=== PATIENT | male | born 1930 | race Hispanic/Latino ===

== ENCOUNTER 2018-08-11 16:38 | Inpatient (IN) | payer MEDICARE, BC ==
[2018-08-11 16:58] VITALS: BMI 20.8
[2018-08-11] MEDS ORDERED: Sodium Chloride 0.9% 1,000 ML IV SCH (17:30)
[2018-08-11 18:03] LABS: BASO # 0.01 K/mm3 (0.0-2.0); BASO % 0.1 % (0.0-3.0); GRAN # 8.68 (1.4-6.5); GRAN % 86.3 % (50.0-68.0); HEMOGLOBIN 11.2 g/dL (14.0-18.0); LYMPH # 0.6 (1.2-3.4); LYMPH % 6.2 % (22.0-35.0); MEAN CELL VOLUME 80.6 fl (80.0-105.0); MEAN CORPUSCULAR HEMOGLOBIN 26.8 pg (25.0-35.0); MEAN CORPUSCULAR HGB CONC 33.2 g/dl (31.0-37.0); MEAN PLATELET VOLUME 8.9 fl (7.0-11.0); MONO # 0.7 (0.1-0.6); MONO % 7.4 % (1.0-6.0); RBC 4.18 10^6/uL (3.5-6.1); RED CELL DISTRIBUTION WIDTH 14.9 % (11.5-14.5); WHITE BLOOD COUNT 10.1 10^3/uL (4.5-11.0)
[2018-08-11 18:08] LABS: ALB/GLOB RATIO 1.1 (1.1-1.8); ALBUMIN 4.1 g/dL (3.0-4.8); ALT/SGPT 27 U/L (7-56); AST/SGOT 40 U/L (17-59); BLOOD UREA NITROGEN 22 mg/dL (7-21); CALCIUM 9.4 mg/dL (8.4-10.5); GFR NON-AFRICAN AMERICAN 52
[2018-08-11 18:19] LABS: TROPONIN I 0.03 ng/mL
[2018-08-11] MEDS ORDERED: Azithromycin 500MG/NS 250ml 500 MG/250 ML BAG IVPB STA (18:39)
[2018-08-11] MEDS ORDERED: cefTRIAXone 1 gm 1 GM/100 ML BAG IVPB STA (18:41)
--- NOTE | 2018-08-11 19:01 | ED PDOC ---
Arrival/HPI - General Chief Complaint: Weakness/Neurological Deficit Historian: Patient - History of Present Illness Narrative History of Present Illness (Text): 08/11/18 17:14 87 year old male, whose past medical history includes pneumonia, diabetes, who presents to the emergency department complaining of generalized weakness for 1 day. Patient states he was sitting in his chair, not able to stand up. He also reports associated non productive cough for more than a week, cannot bring up phlegm, and decreased appetite. Patient denies fevers, chills, headache, dizziness, chest pain, shortness of breath, dyspnea on exertion, abdominal pain, nausea, vomiting, diarrhea, back pain, neck pain, or any other complaint. Time/Duration: 24 hours Symptom Course: Unchanged Activities at Onset: Light Context: Home Past Medical History - Provider Review Nursing Documentation Reviewed: Yes - Travel History Have you recently traveled outside [place] w/in the past 3 mons?: No - Infectious Disease Hx of Infectious Diseases: None - Tetanus Immunization Tetanus Immunization: Unknown - Cardiac Hx Pacemaker: No - Pulmonary Hx Respiratory Disorders: Yes Hx Pneumonia: Yes - Neurological Hx Paralysis: No - HEENT Hx HEENT Disorder: No - Renal Hx Kidney Stones: Yes - Endocrine/Metabolic Hx Diabetes Mellitus Type 2: Yes - Hematological/Oncological Hx Blood Transfusions: No - Integumentary Hx Dermatological Disorder: No - Musculoskeletal/Rheumatological Hx Musculoskeletal Disorders: Yes - Gastrointestinal Hx Diarrhea: Yes (x1 week, pt just finished abx for uri) Hx Gastrointestinal Ulcer: Yes - Genitourinary/Gynecological Hx Genitourinary Disorders: No - Psychiatric Hx Emotional Abuse: No Hx Physical Abuse: No Hx Substance Use: No - Past Surgical History Past Surgical History: Non-Contributing - Surgical History Other/Comment: Something to do with his throat. Pt doesn't know exactly what the problem was. - Anesthesia Hx Anesthesia Reactions: No Hx Malignant Hyperthermia: No - Suicidal Assessment Feels Threatened In Home Enviroment: No Family/Social History - Physician Review Nursing Documentation Reviewed: Yes Family/Social History: No Known Family HX Smoking Status: Current Some Days Smoker Hx Alcohol Use: No Hx Substance Use: No Hx Substance Use Treatment: No Allergies/Home Meds Allergies/Adverse Reactions: Allergies No Known Allergies Allergy (Verified 08/11/18 16:57) Home Medications: Home Meds Medication Instructions Recorded Confirmed RX: Cilostazol 100 mg PO BID 11/01/12 08/13/16 RX: Diltiazem HCl [Diltiazem 24Hr 420 mg PO DAILY 08/13/16 08/13/16 ER] RX: Losartan Potassium [Cozaar] 100 mg PO DAILY 08/13/16 08/13/16 RX: Metformin HCl [Glucophage] 1,000 mg PO BID 08/13/16 08/13/16 RX: Multivitamin [Men's 1 tab PO DAILY 08/13/16 08/13/16 Multi-Vitamin] RX: Omeprazole 20 mg PO BID 08/13/16 08/13/16 RX: Simvastatin 20 mg PO DAILY 08/13/16 08/13/16 Review of Systems - Physician Review All systems were reviewed & negative as marked: Yes - Review of Systems Constitutional: Other (generalized weakness ). absent: Fevers Eyes: absent: Vision Changes Respiratory: Cough (nonproductive cough for >week). absent: Sputum Cardiovascular: absent: Chest Pain Gastrointestinal: Appetite Changes (decreased appetite). absent: Abdominal Pain, Diarrhea, Nausea, Vomiting Musculoskeletal: absent: Back Pain, Neck Pain Neurological: absent: Headache, Dizziness Physical Exam Vital Signs Reviewed: Yes Vital Signs Temp Pulse Resp BP Pulse Ox 08/11/18 16:57 98.1 F 103 H 20 145/67 90 L Temperature: Afebrile Blood Pressure: Normal Pulse: Tachycardic Respiratory Rate: Normal Appearance: Positive for: Well-Appearing, Non-Toxic, Other (Thin) Pain Distress: None Mental Status: Positive for: Alert and Oriented X 3 Finger Stick Blood Glucose: 282 - Systems Exam Head: Present: Atraumatic, Normocephalic Pupils: Present: PERRL Extroacular Muscles: Present: EOMI Conjunctiva: Present: Normal Mouth: Present: Moist Mucous Membranes Neck: Present: Normal Range of Motion Respiratory/Chest: Present: Respiratory Distress, Other (poor respiratory effort by patient). No: Accessory Muscle Use Cardiovascular: Present: Regular Rate and Rhythm, Normal S1, S2. No: Murmurs Abdomen: No: Tenderness, Distention, Peritoneal Signs Back: Present: Normal Inspection Upper Extremity: Present: Normal Inspection. No: Cyanosis, Edema Lower Extremity: Present: Normal Inspection. No: Edema Neurological: Present: GCS=15, CN II-XII Intact, Speech Normal Skin: Present: Warm, Dry, Normal Color. No: Rashes Psychiatric: Present: Alert, Oriented x 3, Normal Insight, Normal Concentration Medical Decision Making ED Course and Treatment: 08/11/18 17:14 Impression: 87 year old male who presents to the emergency department with generalized weakness, and nonproductive cough. Plan: -- EKG -- Labs -- Cardiac Enzymes -- Chest X-ray -- Aspirin -- IV Fluids -- Rocephin -- Zithromax -- Blood Culture -- Urine Culture -- Urinalysis -- Reassess and disposition Prior Visits: Notes and results from previous visits were reviewed. Progress Notes: 08/11/18 17:30 EKG Reviewed, shows: Sinus tachycardic at 107 bpm with normal access, RBBB, ST elevation lead III. 08/11/18 17:[address] Baca he reviewed pt's EKG, states this is an isolated ST elevation, will follow pt on the floor. 08/11/18 17:[address] Sharpe, will admission to telemtry for pneumonia, weakness, near syncope. - Lab Interpretations Lab Results: 08/11/18 17:40 08/11/18 17:40 Lab Results 08/11/18 17:40: Sodium 136, Potassium 4.6, Chloride 102, Carbon Dioxide 23, Anion Gap 17, BUN 22 H, Creatinine 1.3, Est GFR ( Amer) > 60, Est GFR (Non-Af Amer) 52, Random Glucose 304 H* D, Calcium 9.4, Magnesium 1.9, Total Bilirubin 0.6, AST 40, ALT 27, Alkaline Phosphatase 114, Lactate Dehydrogenase 639, Total Creatine Kinase 179, Troponin I 0.03, Total Protein 8.0, Albumin 4.1, Globulin 3.9, Albumin/Globulin Ratio 1.1 08/11/18 17:40: WBC 10.1, RBC 4.18, Hgb 11.2 L, Hct 33.7 L, MCV 80.6, MCH 26.8, MCHC 33.2, RDW 14.9 H, Plt Count 266, MPV 8.9, Gran % 86.3 H, Lymph % (Auto) 6.2 L, [place] % (Auto) 7.4 H, Eos % (Auto) 0.0 L, Baso % (Auto) 0.1, Gran # 8.68 H, Lymph # (Auto) 0.6 L, [place] # (Auto) 0.7 H, Eos # (Auto) 0.0, Baso # (Auto) 0.01 I have reviewed the lab results: Yes - RAD Interpretation Radiology Orders: 08/11/18 17:15 CHEST PORTABLE [RAD] Stat - Medication Orders Current Medication Orders: Sodium Chloride (Sodium Chloride 0.9%) 1,000 mls @ 100 mls/hr IV .Q10H DENISHA Last Admin: 08/11/18 18:16 Dose: 100 mls/hr eMAR Start Stop Document 08/11/18 18:16 LEAD GENERATION REPRESENTATIVE (Rec: 08/11/18 18:18 [facility] [id number]) Intravenous Solution Start Date 08/11/18 Start Time 18:18 Ceftriaxone Sodium (Rocephin 1 Gram Ivpb) 1 gm in 100 mls @ 100 mls/hr IVPB STAT STA; Protocol Stop: 08/11/18 19:40 Azithromycin (Zithromax 500mg In Ns) 500 mg in 250 mls @ 167 mls/hr IVPB STAT STA; Protocol Stop: 08/11/18 20:08 Discontinued Medications Aspirin (Aspirin) 325 mg PO STAT STA Stop: 08/11/18 18:40 - Scribe Statement The provider has reviewed the documentation as recorded by the Casey Hylton Provider Scribe Attestation: All medical record entries made by the Scribe were at my direction and personally dictated by me. I have reviewed the chart and agree that the record accurately reflects my personal performance of the history, physical exam, medical decision making, and the department course for this patient. I have also personally directed, reviewed, and agree with the discharge instructions and disposition. Disposition/Present on Arrival - Present on Arrival Any Indicators Present on Arrival: No History of DVT/PE: No History of Uncontrolled Diabetes: No Urinary Catheter: No History of Decub. Ulcer: No History Surgical Site Infection Following: None - Disposition Have Diagnosis and Disposition been Completed?: Yes Diagnosis: Weakness, Community acquired pneumonia Disposition: HOSPITALIZED Disposition Time: 18:15 Condition: STABLE
--- NOTE | 2018-08-11 20:08 | CP.PCM.PN ---
Subjective - Date & Time of Evaluation Date of Evaluation: 08/11/18 Time of Evaluation: 20:08 Objective - Vital Signs/Intake and Output Vital Signs (last 24 hours): Temp Pulse Resp BP Pulse Ox 98.1 F 108 H 18 144/81 95 08/11/18 16:57 08/11/18 19:45 08/11/18 19:45 08/11/18 19:45 08/11/18 19:45 - Medications Medications: Current Medications Aspirin (Ecotrin) 81 mg PO DAILY DENISHA Benzonatate (Tessalon Perles) 100 mg PO TID PRN PRN Reason: Cough Heparin Sodium (Porcine) (Heparin) 5,000 units SC Q8 DENISHA; Protocol Azithromycin (Zithromax 500mg In Ns) 500 mg in 250 mls @ 167 mls/hr IVPB STAT STA; Protocol Stop: 08/11/18 20:08 Dextrose (Dextrose 5% In Water 1000 Ml) 1,000 mls @ 0 mls/hr IV .Q0M PRN; Protocol PRN Reason: Hypoglycemia Protocol Ceftriaxone Sodium (Rocephin 1 Gram Ivpb) 1 gm in 100 mls @ 100 mls/hr IVPB DAILY DENISHA; Protocol Sodium Chloride (Sodium Chloride 0.9%) 1,000 mls @ 100 mls/hr IV .Q10H DENISHA Insulin Human Regular (Humulin R Med) 0 units SC ACHS DENISHA; Protocol - Labs Labs: 08/11/18 17:40 08/11/18 17:40
[2018-08-11] MEDS: Sodium Chloride 0.9% 1,000 ML IV SCH (20:15)
--- NOTE | 2018-08-11 20:26 | CP.PCM.HP ---
<KylerGuy - Last Filed: 08/12/18 06:18> History of Present Illness - History of Present Illness History of Present Illness: Resident Guy Chávez DO PGY-1 H&P Note for Hospitalist: Dr. Alvarado Pt is a 87 yo M with pmhx DM, HTN, HLD who presents for 2 week history of cough and 3 day hx of weakness. He states that his cough has been present for about 3 weeks and is non-productive. He denies any recent travel or sick contacts. He states that he has taken robutussin and mucinex which has not helped him bring up phlegm or help alleviate the cough. He states that he is not having any chest pain, SOB, fevers, chills, body aches, runny nose, congestion, nausea, vomiting, abdominal pain, dysuria, hematuria. He denies the cough being worse at night or any other factors that exacerbate the cough. For the weakness the pt states that he has not had an appetite for the past 3 days, and is feeling weak and as if he is unable to support his own weight. He denies having any falls and is able to ambulate at home without issue, but it has been more tiring for him to walk lately. He states that he is not having any nausea, vomiting after meals but he simply feels weak after the coughing. He denies any difficulty in swallowing, pain with swallowing or feeling as if food is getting stuck in his throat. Pmhx: DM, HTN, HLD Pshx: Skin cancer excision from legs x3 - benign All: NKDA Social: Occasional smoker, 1 cigar/month, No etoh or illicit drug use Fam: Non-contributory PMD: [place] Present on Admission - Present on Admission Any Indicators Present on Admission: No Review of Systems - Review of Systems All systems: reviewed and no additional remarkable complaints except Review of Systems: 12 point ROS is negative except for noted in HPI. Past Patient History - Infectious Disease Hx of Infectious Diseases: None - Tetanus Immunizations Tetanus Immunization: Unknown - Past Social History Smoking Status: Current Some Days Smoker - CARDIAC Hx Pacemaker: No - PULMONARY Hx Respiratory Disorders: Yes Hx Pneumonia: Yes - NEUROLOGICAL Hx Paralysis: No - HEENT Hx HEENT Problems: No - RENAL Hx Kidney Stones: Yes - ENDOCRINE/METABOLIC Hx Diabetes Mellitus Type 2: Yes - HEMATOLOGICAL/ONCOLOGICAL Hx Blood Transfusions: No - INTEGUMENTARY Hx Dermatological Problems: No - MUSCULOSKELETAL/RHEUMATOLOGICAL Hx Musculoskeletal Disorders: Yes - GASTROINTESTINAL Hx Diarrhea: Yes (x1 week, pt just finished abx for uri) - GENITOURINARY/GYNECOLOGICAL Hx Genitourinary Disorders: No - PSYCHIATRIC Hx Emotional Abuse: No Hx Physical Abuse: No Hx Substance Use: No - SURGICAL HISTORY Other/Comment: Something to do with his throat. Pt doesn't know exactly what the problem was. - ANESTHESIA Hx Anesthesia Reactions: No Hx Malignant Hyperthermia: No Meds Allergies/Adverse Reactions: Allergies Allergy/AdvReac Type Severity Reaction Status Date / Time No Known Allergies Allergy Verified 08/11/18 16:57 Physical Exam - Constitutional Appears: Well, Non-toxic, No Acute Distress - Head Exam Head Exam: ATRAUMATIC, NORMAL INSPECTION, NORMOCEPHALIC - Eye Exam Eye Exam: EOMI, Normal appearance Pupil Exam: NORMAL ACCOMODATION - Respiratory Exam Respiratory Exam: Wheezes (present diffusely b/l), NORMAL BREATHING PATTERN. absent: Accessory Muscle Use, Chest Wall Tenderness, Decreased Breath Sounds, Respiratory Distress, Stridor - Cardiovascular Exam Cardiovascular Exam: RRR, +S1, +S2 - GI/Abdominal Exam GI & Abdominal Exam: Normal Bowel Sounds, Soft. absent: Firm, Tenderness - Extremities Exam Extremities exam: Positive for: normal inspection, pedal pulses present. Negative for: calf tenderness, joint swelling, pedal edema - Back Exam Back exam: NORMAL INSPECTION. absent: CVA tenderness (L), CVA tenderness (R) - Neurological Exam Neurological exam: Alert, Oriented x3 - Psychiatric Exam Psychiatric exam: Normal Affect, Normal Mood - Skin Skin Exam: Dry, Intact, Normal Color, Warm Results - Vital Signs Recent Vital Signs: Last Vital Signs Temp 98.1 F 08/11/18 16:57 Pulse 108 H 08/11/18 19:45 Resp 18 08/11/18 19:45 BP 144/81 08/11/18 19:45 Pulse Ox 95 08/11/18 19:45 - Labs Result Diagrams: 08/11/18 17:40 08/11/18 17:40 Labs: Laboratory Results - last 24 hr 08/11/18 08/11/18 17:40 17:40 WBC 10.1 RBC 4.18 Hgb 11.2 L Hct 33.7 L MCV 80.6 MCH 26.8 MCHC 33.2 RDW 14.9 H Plt Count 266 MPV 8.9 Gran % 86.3 H Lymph % (Auto) 6.2 L [place] % (Auto) 7.4 H Eos % (Auto) 0.0 L Baso % (Auto) 0.1 Gran # 8.68 H Lymph # (Auto) 0.6 L [place] # (Auto) 0.7 H Eos # (Auto) 0.0 Baso # (Auto) 0.01 Sodium 136 Potassium 4.6 Chloride 102 Carbon Dioxide 23 Anion Gap 17 BUN 22 H Creatinine 1.3 Est GFR ( Amer) > 60 Est GFR (Non-Af Amer) 52 Random Glucose 304 H* D Calcium 9.4 Magnesium 1.9 Total Bilirubin 0.6 AST 40 ALT 27 Alkaline Phosphatase 114 Lactate Dehydrogenase 639 Total Creatine Kinase 179 Troponin I 0.03 Total Protein 8.0 Albumin 4.1 Globulin 3.9 Albumin/Globulin Ratio 1.1 Assessment & Plan - Assessment and Plan (Free Text) Assessment: Pt is a 87 yo M with pmhx DM, HTN, HLD who presents for 2 week history of cough and 3 day hx of weakness. CXR shows questionable consolidation in the LLL overlying cardiac silhouette. Pt is afebrile and has no elevation in WBC. EKG also showed questionable old inferior wall infarct. Plan: 1. PNA vs Bronchitis - CXR shows possible consildation overlying cardiac silhouette, read by me, f/u official read - No elevation in WBC or temp - f/u blood, urine and sputum cultures - f/u MRSA screen - f/u Legionella urine - Procal ordered - f/u M pneumo - f/u flu A&B test - Zithromax 500 IV QD - Rocephin 1g IV QD - Tessalon pearls 2. Abnormal EKG - Pt is having no active chest pain, and is non diaphoretic - Trend trops, inital trop = .03 - ASA 81 QD, 325 already given in ED 3. Hx of DM - ISS - Lipid panel - Hgb A1c 4. Ppx: - DVT: Heparin - GI: Protonix Case seen and discussed with Dr. Jenny Chávez, DO Internal Medicine PGY-1 <Jos Alvarado - Last Filed: 08/12/18 06:46> Results - Vital Signs Recent Vital Signs: Last Vital Signs Temp 97.6 F 08/12/18 06:00 Pulse 125 H 08/12/18 06:00 Resp 20 08/12/18 06:00 BP 124/71 08/12/18 06:00 Pulse Ox 91 L 08/12/18 06:00 - Labs Result Diagrams: 08/11/18 17:40 08/11/18 17:40 Labs: Laboratory Results - last 24 hr 08/11/18 08/11/18 08/11/18 17:40 17:40 17:40 WBC 10.1 RBC 4.18 Hgb 11.2 L Hct 33.7 L MCV 80.6 MCH 26.8 MCHC 33.2 RDW 14.9 H Plt Count 266 MPV 8.9 Gran % 86.3 H Lymph % (Auto) 6.2 L [place] % (Auto) 7.4 H Eos % (Auto) 0.0 L Baso % (Auto) 0.1 Gran # 8.68 H Lymph # (Auto) 0.6 L [place] # (Auto) 0.7 H Eos # (Auto) 0.0 Baso # (Auto) 0.01 Sodium 136 Potassium 4.6 Chloride 102 Carbon Dioxide 23 Anion Gap 17 BUN 22 H Creatinine 1.3 Est GFR ( Amer) > 60 Est GFR (Non-Af Amer) 52 POC Glucose (mg/dL) Random Glucose 304 H* D Calcium 9.4 Magnesium 1.9 Total Bilirubin 0.6 AST 40 ALT 27 Alkaline Phosphatase 114 Lactate Dehydrogenase 639 Total Creatine Kinase 179 Troponin I 0.03 Total Protein 8.0 Albumin 4.1 Globulin 3.9 Albumin/Globulin Ratio 1.1 Triglycerides 192 H Cholesterol 156 LDL Cholesterol Direct 75 HDL Cholesterol 37 Urine Color Urine Appearance Urine pH Ur Specific [place] Urine Protein Urine Glucose (UA) Urine Ketones Urine Blood Urine Nitrate Urine Bilirubin Urine Urobilinogen Ur Leukocyte Esterase Urine RBC Urine WBC Ur Epithelial Cells Urine Bacteria 08/11/18 08/11/18 08/11/18 21:00 21:15 21:42 WBC RBC Hgb Hct MCV MCH MCHC RDW Plt Count MPV Gran % Lymph % (Auto) [place] % (Auto) Eos % (Auto) Baso % (Auto) Gran # Lymph # (Auto) [place] # (Auto) Eos # (Auto) Baso # (Auto) Sodium Potassium Chloride Carbon Dioxide Anion Gap BUN Creatinine Est GFR ( Amer) Est GFR (Non-Af Amer) POC Glucose (mg/dL) 244 H 233 H Random Glucose Calcium Magnesium Total Bilirubin AST ALT Alkaline Phosphatase Lactate Dehydrogenase Total Creatine Kinase Troponin I Total Protein Albumin Globulin Albumin/Globulin Ratio Triglycerides Cholesterol LDL Cholesterol Direct HDL Cholesterol Urine Color Yellow Urine Appearance Clear Urine pH 6.0 Ur Specific [place] 1.025 Urine Protein 100 H Urine Glucose (UA) >=1000 Urine Ketones Negative Urine Blood Large H Urine Nitrate Negative Urine Bilirubin Negative Urine Urobilinogen 0.2 Ur Leukocyte Esterase Negative Urine RBC 1 - 3 Urine WBC 0 - 2 Ur Epithelial Cells 0 - 2 Urine Bacteria Rare 08/12/18 03:45 WBC RBC Hgb Hct MCV MCH MCHC RDW Plt Count MPV Gran % Lymph % (Auto) [place] % (Auto) Eos % (Auto) Baso % (Auto) Gran # Lymph # (Auto) [place] # (Auto) Eos # (Auto) Baso # (Auto) Sodium Potassium Chloride Carbon Dioxide Anion Gap BUN Creatinine Est GFR ( Amer) Est GFR (Non-Af Amer) POC Glucose (mg/dL) Random Glucose Calcium Magnesium Total Bilirubin AST ALT Alkaline Phosphatase Lactate Dehydrogenase Total Creatine Kinase Troponin I 0.88 H* D Total Protein Albumin Globulin Albumin/Globulin Ratio Triglycerides Cholesterol LDL Cholesterol Direct HDL Cholesterol Urine Color Urine Appearance Urine pH Ur Specific [place] Urine Protein Urine Glucose (UA) Urine Ketones Urine Blood Urine Nitrate Urine Bilirubin Urine Urobilinogen Ur Leukocyte Esterase Urine RBC Urine WBC Ur Epithelial Cells Urine Bacteria Attending/Attestation - Attestation I have personally seen and examined this patient.: Yes I have fully participated in the care of the patient.: Yes I have reviewed all pertinent clinical information: Yes Notes (Text): Patient seen and examined with the residents, agree with above symptoms of nonproductive cough and generalized weakness CXR with left lower lung infiltrate - will start Abx for CAP with Azithromycin/Rocephin blood/sputum cx, atypical pneumonia workup, PCT no active chest pain but noted to have ST with non-specific EKG changes Troponin 0.03 --> 0.88. Start heparin gtt for NSTEMI protocol, Cardiology consultation continue with asa/statin/arb
[2018-08-11 21:07] LABS: HDL CHOLESTEROL 37 mg/dL (29-60)
[2018-08-11] MEDS: Insulin Reg-MEDIUM-Coverage SC SCH (21:17)
[2018-08-11 21:18] LABS: LDL CHOLESTEROL 75 mg/dL (0-129)
[2018-08-11 22:14] LABS: URINE BILIRUBIN NEGATIVE (NEGATIVE); URINE BLOOD LARGE (NEGATIVE); URINE GLUCOSE (UA) >=1000 mg/dL (NEGATIVE); URINE LEUKOCYTE ESTERASE NEGATIVE Leu/uL (NEGATIVE); URINE PROTEIN 100 mg/dL (<30 mg/dL); URINE UROBILINOGEN 0.2 E.U./dL (<1 E.U./dL)
[2018-08-11 22:16] LABS: URINE APPEARANCE CLEAR (CLEAR); URINE COLOR YELLOW (YELLOW)
[2018-08-11 23:24] LABS: URINE BACTERIA RARE (NEG); URINE EPITHELIAL CELLS 0 - 2 /hpf (0-5); URINE WBC 0 - 2 /hpf (0-6)
[2018-08-12] MEDS: Pantoprazole 40 mg EC Tab PO SCH (05:37)
[2018-08-12] MEDS: Heparin25000 units/250ml 1/2NS 25,000 UNITS/250 ML BAG IV SCH (05:38)
[2018-08-12] MEDS: Insulin Reg-MEDIUM-Coverage SC SCH ×4 (08:51→22:15)
[2018-08-12] MEDS: Cilostazol 100 mg Tab UD PO SCH ×2 (09:40→18:33)
[2018-08-12] MEDS: cefTRIAXone 1 gm 1 GM/100 ML BAG IVPB SCH (09:40)
[2018-08-12] MEDS: diltiaZEM 120 mg/24 Hours CD Cap PO SCH (09:42)
--- NOTE | 2018-08-12 09:46 | CARD ---
APPROVED REPORT Date of service: 08/12/2018 EKG Measurement Heart [id number] <Conclusion> Sinus tachycardia Indeterminate axis Right bundle branch block Inferior infarct, age Old? Abnormal ECG
[2018-08-12] MEDS ORDERED: diltiaZEM 300 mg/24 Hours CD Cap PO SCH (10:00)
--- NOTE | 2018-08-12 10:13 | CARD ---
APPROVED REPORT Date of service: 08/11/2018 EKG Measurement Heart [id number] <Conclusion> Sinus tachycardia Right bundle branch block Possible Inferior infarct, age Old. Abnormal ECG
--- NOTE | 2018-08-12 11:56 | RAD ---
Date of service: 08/11/2018 HISTORY: cough r/o infiltrate COMPARISON: 11/01/2012 FINDINGS: LUNGS: Lower lobe infiltrates bilaterally left greater than right. Findings not seen previously. PLEURA: No significant pleural effusion identified, no pneumothorax apparent. CARDIOVASCULAR: No atherosclerotic calcification present No radiographic findings to suggest acute or significant cardiovascular disease. OSSEOUS STRUCTURES: No significant abnormalities. VISUALIZED UPPER ABDOMEN: Normal. OTHER FINDINGS: None. IMPRESSION: Lower lobe infiltrates left greater than right. Likely atelectasis/pneumonia.
[2018-08-12] MEDS: Azithromycin 500MG/NS 250ml 500 MG/250 ML BAG IVPB SCH (12:21)
[2018-08-12] MEDS ORDERED: Iohexol 350 MG/100 ML VIAL ONE (14:20)
--- NOTE | 2018-08-12 16:46 | CP.PCM.PN ---
<Jovan Nevarez - Last Filed: 08/12/18 16:41> Subjective - Date & Time of Evaluation Date of Evaluation: 08/12/18 Time of Evaluation: 07:50 - Subjective Subjective: PGY-1 Medicine Progress Note for Dr. Reyes Patient was seen and examined at bedside this AM. No acute overnight events reported. Patient was observed coughing moderately with no sputum production. No fevers/chills, headaches, dizziness, chest pain, palpitations, sob, abdominal pain, n/v/d/c. Objective - Vital Signs/Intake and Output Vital Signs (last 24 hours): Temp Pulse Resp BP Pulse Ox 97.4 F L 115 H 20 115/73 91 L 08/12/18 11:22 08/12/18 11:22 08/12/18 11:22 08/12/18 11:22 08/12/18 06:00 Intake and Output: 08/12/18 08/12/18 06:59 18:59 Intake Total 100 50 Output Total 50 Balance 50 50 - Medications Medications: Current Medications Aspirin (Ecotrin) 81 mg PO DAILY [facility] Last Admin: 08/12/18 09:40 Dose: 81 mg Atorvastatin Calcium (Lipitor) 40 mg PO DIN [facility] Benzonatate (Tessalon Perles) 100 mg PO TID PRN PRN Reason: Cough Last Admin: 08/12/18 09:40 Dose: 100 mg Carvedilol (Coreg) 3.125 mg PO BID [facility] Cilostazol (Pletal) 100 mg PO BID [facility] Last Admin: 08/12/18 09:40 Dose: 100 mg Diltiazem HCl (Cardizem Cd) 120 mg PO DAILY [facility] Last Admin: 08/12/18 09:42 Dose: 120 mg Docusate Sodium (Colace) 100 mg PO BID [facility] Last Admin: 08/12/18 09:40 Dose: 100 mg Heparin Sodium (Porcine) (Heparin) 5,000 units SC Q8 [facility]; Protocol Last Admin: 08/11/18 22:08 Dose: 5,000 units Dextrose (Dextrose 5% In Water 1000 Ml) 1,000 mls @ 0 mls/hr IV .Q0M PRN; Protocol PRN Reason: Hypoglycemia Protocol Ceftriaxone Sodium (Rocephin 1 Gram Ivpb) 1 gm in 100 mls @ 100 mls/hr IVPB DAILY [facility]; Protocol Last Admin: 08/12/18 09:40 Dose: 100 mls/hr Sodium Chloride (Sodium Chloride 0.9%) 1,000 mls @ 100 mls/hr IV .Q10H [facility] Last Admin: 08/11/18 20:15 Dose: 100 mls/hr Heparin Sodium/Sodium Chloride (Heparin 47672 Units/250ml 1/2 Normal Saline) 25,000 units in 250 mls @ 7.022 mls/hr IV .Q24H [facility]; Protocol Last Titration: 08/12/18 13:14 Dose: 14 units/kg/hr, 8.192 mls/hr Azithromycin (Zithromax 500mg In Ns) 500 mg in 250 mls @ 167 mls/hr IVPB DAILY [facility]; Protocol Last Admin: 08/12/18 12:21 Dose: 167 mls/hr Insulin Human Regular (Humulin R Med) 0 units SC ACHS [facility]; Protocol Last Admin: 08/12/18 13:17 Dose: 3 u Losartan Potassium (Cozaar) 100 mg PO DAILY [facility] Last Admin: 08/12/18 09:40 Dose: 100 mg Pantoprazole Sodium (Protonix Ec Tab) 40 mg PO 0600 [facility] Last Admin: 08/12/18 05:37 Dose: 40 mg - Labs Labs: 08/11/18 17:40 08/11/18 17:40 APTT 46.6 Seconds (25.1-36.5) H 08/12/18 11:40 - Constitutional Appears: Non-toxic, No Acute Distress - Head Exam Head Exam: ATRAUMATIC, NORMAL INSPECTION, NORMOCEPHALIC - Eye Exam Eye Exam: EOMI, Normal appearance Pupil Exam: NORMAL ACCOMODATION - ENT Exam ENT Exam: Mucous Membranes Moist, Normal Exam - Neck Exam Neck Exam: Full ROM, Normal Inspection - Respiratory Exam Respiratory Exam: Rales, NORMAL BREATHING PATTERN. absent: Accessory Muscle Use, Rhonchi, Wheezes, Respiratory Distress, Stridor - Cardiovascular Exam Cardiovascular Exam: Tachycardia, +S1, +S2 - GI/Abdominal Exam GI & Abdominal Exam: Soft, Normal Bowel Sounds. absent: Distended, Firm, Guarding, Rigid, Tenderness, Organomegaly, Rebound - Extremities Exam Extremities Exam: Normal Capillary Refill, Normal Inspection. absent: Calf Tenderness, Joint Swelling, Pedal Edema - Back Exam Back Exam: NORMAL INSPECTION - Neurological Exam Neurological Exam: Alert, Awake, Oriented x3 - Psychiatric Exam Psychiatric exam: Normal Affect, Normal Mood - Skin Skin Exam: Dry, Intact, Normal Color, Warm Assessment and Plan - Assessment and Plan (Free Text) Assessment: 87 year old M with PMHx of DM, HTN, HLD presenting for 2 week history of cough and 3 day hx of generalized weakness, CXR demonstrating LLL infiltratio n L>R, likely atelectasis/pneumonia. Plan: Pneumonia - patient afebrile, no leukocytosis - CXR: lower lobe infiltrates L>R, likely atelectasis/pneumonia - Procalitonin elevated at 5.06 - f/u blood, urine and sputum cultures - Legionella urine negative - f/u MRSA screen - f/u M pneumo - f/u flu A&B test -Medications - Azithromycin 500 IV Daily - Rocephin 1g IV Daily - Tessalon pearls for cough Abnormal EKG - Pt is having no active chest pain, and is non diaphoretic - EKG: sinus tachy at 107 bpm, RBBB - Repeat EKG: sinus tachy at 125 bpm, RBBB - inital trop = .03, trop #2 elevated 0.88 - ASA 81 PO daily, 325 already given in ED - NSTEMI protocol - heparin drip, c/w ASA, statin, losartan, cardizem - Cardiology (Dr. Carlos covering for Dr. Avila) following Hx of DM - ISS medium - Lipid panel wnl - Hgb A1c: 9.0 PPx, Diet, Disposition - DVT: Heparin - GI: Protonix - Diet: Carb consistent - PT/OT on board Case discussed with Dr. Amy Nevarez DO, PGY-1 <Kartik Reyes - Last Filed: 08/12/18 18:54> Objective - Vital Signs/Intake and Output Vital Signs (last 24 hours): Temp Pulse Resp BP Pulse Ox 97.4 F L 115 H 20 116/85 91 L 08/12/18 11:22 08/12/18 18:34 08/12/18 11:22 08/12/18 18:34 08/12/18 06:00 Intake and Output: 08/12/18 08/12/18 06:59 18:59 Intake Total 100 50 Output Total 50 Balance 50 50 - Medications Medications: Current Medications Aspirin (Ecotrin) 81 mg PO DAILY [facility] Last Admin: 08/12/18 09:40 Dose: 81 mg Atorvastatin Calcium (Lipitor) 40 mg PO DIN [facility] Last Admin: 08/12/18 18:34 Dose: 40 mg Benzonatate (Tessalon Perles) 100 mg PO TID PRN PRN Reason: Cough Last Admin: 08/12/18 09:40 Dose: 100 mg Carvedilol (Coreg) 3.125 mg PO BID [facility] Last Admin: 08/12/18 18:34 Dose: 3.125 mg Cilostazol (Pletal) 100 mg PO BID [facility] Last Admin: 08/12/18 18:33 Dose: 100 mg Diltiazem HCl (Cardizem Cd) 120 mg PO DAILY [facility] Last Admin: 08/12/18 09:42 Dose: 120 mg Docusate Sodium (Colace) 100 mg PO BID [facility] Last Admin: 08/12/18 18:33 Dose: 100 mg Heparin Sodium (Porcine) (Heparin) 5,000 units SC Q8 [facility]; Protocol Last Admin: 08/11/18 22:08 Dose: 5,000 units Dextrose (Dextrose 5% In Water 1000 Ml) 1,000 mls @ 0 mls/hr IV .Q0M PRN; Protocol PRN Reason: Hypoglycemia Protocol Ceftriaxone Sodium (Rocephin 1 Gram Ivpb) 1 gm in 100 mls @ 100 mls/hr IVPB DAILY [facility]; Protocol Last Admin: 08/12/18 09:40 Dose: 100 mls/hr Sodium Chloride (Sodium Chloride 0.9%) 1,000 mls @ 100 mls/hr IV .Q10H [facility] Last Admin: 08/12/18 18:38 Dose: 100 mls/hr Heparin Sodium/Sodium Chloride (Heparin 92349 Units/250ml 1/2 Normal Saline) 25,000 units in 250 mls @ 7.022 mls/hr IV .Q24H [facility]; Protocol Last Titration: 08/12/18 13:14 Dose: 14 units/kg/hr, 8.192 mls/hr Azithromycin (Zithromax 500mg In Ns) 500 mg in 250 mls @ 167 mls/hr IVPB DAILY [facility]; Protocol Last Admin: 08/12/18 12:21 Dose: 167 mls/hr Insulin Human Regular (Humulin R Med) 0 units SC ACHS [facility]; Protocol Last Admin: 08/12/18 18:36 Dose: 1 u Losartan Potassium (Cozaar) 100 mg PO DAILY [facility] Last Admin: 08/12/18 09:40 Dose: 100 mg Pantoprazole Sodium (Protonix Ec Tab) 40 mg PO 0600 [facility] Last Admin: 08/12/18 05:37 Dose: 40 mg - Labs Labs: 08/11/18 17:40 08/11/18 17:40 APTT 46.6 Seconds (25.1-36.5) H 08/12/18 11:40 Attending/Attestation - Attestation I have personally seen and examined this patient.: Yes I have fully participated in the care of the patient.: Yes I have reviewed all pertinent clinical information, including history, physical exam and plan: Yes Notes (Text): 08/12/18 18:52 87 year old male with past medical history of hypertension and diabetes who presented with complaint of generalized weakness and cough. He was found to have bilateral lower lobe pneumonia (L>R) and possible NSTEMI. He is on iv an tibiotics. Procalcitonin is elevated. Will follow up on cultures. He is on heparin drip, aspirin, and statin. He denies any chest pain. Case was discused with cardiology; recommended medical management as above. Will follow up on echocardiogram. Kartik Reyes MD Hospitalist.
[2018-08-12] MEDS: Sodium Chloride 0.9% 1,000 ML IV SCH (18:38)
--- NOTE | 2018-08-12 19:49 | CON ---
CARDIOLOGY CONSULTATION DATE OF CONSULTATION: 08/12/2018 REASON FOR CONSULTATION: Elevated troponin. HISTORY OF PRESENT ILLNESS: The patient is an 87-year-old male who has a history of diabetes mellitus and prior pneumonia, was admitted because of generalized weakness, unable to stand up from his chair and experiencing productive cough for a week. The patient denies any chest pain and is unaware of any history of heart attack in the past. MEDICATIONS: Cardizem CD 120 mg once a day, Cozaar 100 mg once a day, aspirin 81 mg once a day, subcutaneous heparin 5000 units every 8 hours, intravenous heparin infusion and therapeutic regimen, Lipitor 40 mg once a day, Protonix 40 mg p.o. once a day, Zithromax 500 mg intravenously daily. PAST MEDICAL HISTORY: Hypertension, diabetes mellitus, history of skin cancer. PHYSICAL EXAMINATION: GENERAL: The patient is an elderly male, who does not appear to be in acute distress. VITAL SIGNS: Blood pressure 150/73, heart rate 115, temperature 97.4, respirations 20. HEENT: Normocephalic. CHEST: Minimal rhonchi. HEART: S1 and S2 are regular. ABDOMEN: Soft. EXTREMITIES: No edema. Chest x-ray revealed normal cardiac size and prominent bronchovascular markings, possible interstitial pneumonia. EKG revealed sinus tachycardia at rate 125, right bundle-branch block, possible old anterior infarct. The admitting EKG revealed similar scenario, but with a heart rate of 107. LABORATORY DATA: Hemoglobin and hematocrit 11.2 and 33.7, white count and platelet count are within normal limits. SMA-7 is within normal limits, except a glucose of 304 and BUN of 22. Troponin was 0.03 and 0.88. PTT 46.6. Legionella pneumonia antigen is negative. ASSESSMENT: 1. Consider non-ST elevation myocardial infarction. 2. Rule out pulmonary infarction. 3. Pneumonia. 4. Mild anemia. RECOMMENDATIONS: Continue current intravenous heparin. Continue IV Cardizem at 120 mg once a day, aspirin 81 mg once a day, Lipitor 40 mg once a day, Zithromax 500 mg intravenously daily, Pletal 100 mg twice a day, Cozaar 100 mg once a day. Start Lopressor 25 mg twice a day. Obtain an echocardiogram and CT angio of the chest. Jethro Carlos MD [facility] # [id number]
[2018-08-13] MEDS: Sodium Chloride 0.9% 1,000 ML IV SCH ×2 (03:37→17:48)
[2018-08-13] MEDS: Heparin25000 units/250ml 1/2NS 25,000 UNITS/250 ML BAG IV SCH (05:37)
[2018-08-13] MEDS: Pantoprazole 40 mg EC Tab PO SCH (05:54)
[2018-08-13] MEDS: Insulin Reg-MEDIUM-Coverage SC SCH ×4 (07:30→22:10)
[2018-08-13 10:17] LABS: ARTERIAL BLOOD GAS HEMOGLOBIN 9.5 g/dL (11.7-17.4); ARTERIAL BLOOD GAS O2 CAPACITY 13.1 mL/dl (16-24); ARTERIAL BLOOD GAS O2 CONTENT 12.9 ML/dl (15-23); ARTERIAL BLOOD GAS O2 SAT 98.8 % (95-98); ARTERIAL BLOOD GAS PCO2 27 mm/Hg (35-45); ARTERIAL BLOOD GAS PH 7.38 (7.35-7.45); ARTERIAL BLOOD GAS TCO2 16.8 mmol.L (22-28)
--- NOTE | 2018-08-13 10:19 | CT ---
Date of service: 08/12/2018 PROCEDURE: CT Chest with contrast (Pulmonary Angiogram) HISTORY: PE COMPARISON: None available. TECHNIQUE: Axial computed tomography images were obtained of the chest in the pulmonary arterial phase of enhancement. Coronal and sagittal reformatted images were created and reviewed. Intravenous contrast dose: 100 mL Omnipaque 350 Radiation dose: Total exam DLP = 384.32 mGy-cm. This CT exam was performed using one or more of the following dose reduction techniques: Automated exposure control, adjustment of the mA and/or kV according to patient size, and/or use of iterative reconstruction technique. FINDINGS: PULMONARY ARTERIES: There are no filling defects in the pulmonary arteries to suggest acute pulmonary embolism. AORTA: No acute findings. No thoracic aortic aneurysm. No aortic atherosclerotic calcification or mural plaque present. LUNGS: There is confluent airspace disease in both lower lobes and inferior lingula. No nodule, mass or pulmonary consolidation. PLEURAL SPACES: Small bilateral pleural effusions. No pneumothorax. HEART: No cardiomegaly. No significant pericardial effusion. LYMPH NODES: No pathologic lymphadenopathy. BONES, CHEST WALL: Within normal limits for the patient's age. No fracture or destructive lesion OTHER FINDINGS: Unremarkable. IMPRESSION: No CT evidence for acute pulmonary embolism. Confluent airspace disease in the lower lobes and inferior lingula may represent multifocal pneumonia. Small bilateral pleural effusions. Follow-up is advised. A preliminary report was provided by [employer].
[2018-08-13] MEDS: Cilostazol 100 mg Tab UD PO SCH ×2 (10:59→17:46)
[2018-08-13] MEDS: Azithromycin 500MG/NS 250ml 500 MG/250 ML BAG IVPB SCH (10:59)
[2018-08-13] MEDS: cefTRIAXone 1 gm 1 GM/100 ML BAG IVPB SCH (10:59)
[2018-08-13] MEDS: diltiaZEM 120 mg/24 Hours CD Cap PO SCH (11:00)
--- NOTE | 2018-08-13 12:55 | CARD ---
APPROVED REPORT Date of service: 08/13/2018 EXAM: Two-dimensional and M-mode echocardiogram with Doppler and color Doppler. INDICATION SD 2D DIMENSIONS Left Atrium (2D)3.4 (1.6-4.0cm)IVSd1.1 (0.7-1.1cm) LVDd3.6 (3.9-5.9cm)PWd0.8 (0.7-1.1cm) LVDs3.0 (2.5-4.0cm)FS (%) 15.1 % LVEF (%)32.6 (>50%) M-Mode DIMENSIONS Aortic Root3.60 (2.2-3.7cm)Aortic Cusp Exc.1.90 (1.5-2.0cm) Aortic Valve AoV Peak Nobkdoqu922.0cm/Naye Peak GR.9mmHg Mitral Valve MV E Vjdnwpqq74.8cm/sMV A Fccuezam990.0cm/sE/A ratio0.5 TDI Lateral E' Peak V4.39cm/sMedial E' Peak V4.87cm/sE/Lateral E'12.9 E/Medial E'11.7 Tricuspid Valve TR Peak [id number]/sRAP [id number] Peak Gr.23mmHg [id number] LEFT VENTRICLE The left ventricle is normal size. There is normal left ventricular wall thickness. The systolic function is severely impaired. Infero-lateral hypokinesis Transmitral Doppler flow pattern is Grade I-abnormal relaxation pattern. No left ventricle thrombus noted on this study. RIGHT VENTRICLE The right ventricle is normal size. There is normal right ventricular wall thickness. The right ventricular systolic function is normal. AORTIC VALVE The aortic valve is moderately sclerotic. No aortic regurgitation is present. There is no aortic valvular stenosis. MITRAL VALVE The mitral valve is mildly thickened. There is no mitral valve regurgitation noted. There is no mitral valve stenosis. TRICUSPID VALVE There is trace tricuspid regurgitation. PULMONIC VALVE There is no pulmonic valvular regurgitation. GREAT VESSELS The aortic root is normal in size. PERICARDIAL EFFUSION There is a trace pericardial effusion. <Conclusion> The left ventricle is normal size. There is normal left ventricular wall thickness. The systolic function is severely impaired. Infero-lateral hypokinesis Transmitral Doppler flow pattern is Grade I-abnormal relaxation pattern. No left ventricle thrombus noted on this study.
--- NOTE | 2018-08-13 16:52 | CP.PCM.PN ---
<Honorio Marrero - Last Filed: 08/13/18 16:49> Subjective - Date & Time of Evaluation Date of Evaluation: 08/13/18 Time of Evaluation: 07:00 - Subjective Subjective: Honorio Marrero, PGY1 Medicine Progress Note for Dr. Reyes Patient seen and examined at bedside this morning. As per nursing staff, patient was hypoxic last night. He was desaturating at high 80s - low 90s. Patient placed on non-rebreather. Patient was evaluated by story writer. Patient was not in distress. He said his shortness of breath was improved after being given the non-rebreather. Manual pulse ox was done and found to be 93% at time of interview. He was afebrile overnight. No other changes. Denies cp, abd pain, n/v/d, numbness/tingling. A full 12 point ROS was conducted and unremarkable except as stated above. Objective - Vital Signs/Intake and Output Vital Signs (last 24 hours): Temp Pulse Resp BP Pulse Ox 97.1 F L 98 H 22 119/65 90 L 08/13/18 12:00 08/13/18 14:00 08/13/18 12:00 08/13/18 14:16 08/13/18 06:00 Intake and Output: 08/13/18 08/13/18 06:59 18:59 Intake Total 2873 Output Total 350 Balance 2523 - Medications Medications: Current Medications Aspirin (Ecotrin) 81 mg PO DAILY [facility] Last Admin: 08/13/18 11:00 Dose: 81 mg Atorvastatin Calcium (Lipitor) 40 mg PO DIN [facility] Last Admin: 08/12/18 18:34 Dose: 40 mg Benzonatate (Tessalon Perles) 100 mg PO TID PRN PRN Reason: Cough Last Admin: 08/13/18 11:00 Dose: 100 mg Carvedilol (Coreg) 3.125 mg PO BID [facility] Last Admin: 08/13/18 11:04 Dose: 3.125 mg Cilostazol (Pletal) 100 mg PO BID [facility] Last Admin: 08/13/18 10:59 Dose: 100 mg Diltiazem HCl (Cardizem Cd) 120 mg PO DAILY [facility] Last Admin: 08/13/18 11:00 Dose: 120 mg Docusate Sodium (Colace) 100 mg PO BID [facility] Last Admin: 08/13/18 11:00 Dose: 100 mg Furosemide (Lasix) 40 mg IVP DAILY [facility] Heparin Sodium (Porcine) (Heparin) 5,000 units SC Q8 [facility]; Protocol Last Admin: 08/11/18 22:08 Dose: 5,000 units Dextrose (Dextrose 5% In Water 1000 Ml) 1,000 mls @ 0 mls/hr IV .Q0M PRN; Protocol PRN Reason: Hypoglycemia Protocol Ceftriaxone Sodium (Rocephin 1 Gram Ivpb) 1 gm in 100 mls @ 100 mls/hr IVPB DAILY [facility]; Protocol Last Admin: 08/13/18 10:59 Dose: 100 mls/hr Sodium Chloride (Sodium Chloride 0.9%) 1,000 mls @ 100 mls/hr IV .Q10H [facility] Last Admin: 08/13/18 03:37 Dose: 100 mls/hr Heparin Sodium/Sodium Chloride (Heparin 28228 Units/250ml 1/2 Normal Saline) 25,000 units in 250 mls @ 7.022 mls/hr IV .Q24H [facility]; Protocol Last Admin: 08/13/18 05:37 Dose: Not Given Azithromycin (Zithromax 500mg In Ns) 500 mg in 250 mls @ 167 mls/hr IVPB DAILY [facility]; Protocol Last Admin: 08/13/18 10:59 Dose: 167 mls/hr Insulin Human Regular (Humulin R Med) 0 units SC ACHS [facility]; Protocol Last Admin: 08/13/18 11:07 Dose: 1 u Losartan Potassium (Cozaar) 100 mg PO DAILY [facility] Last Admin: 08/13/18 11:05 Dose: 100 mg Pantoprazole Sodium (Protonix Ec Tab) 40 mg PO 0600 [facility] Last Admin: 08/13/18 05:54 Dose: 40 mg - Labs Labs: 08/11/18 17:40 08/11/18 17:40 APTT 45.3 Seconds (25.1-36.5) H 08/13/18 11:00 - Constitutional Appears: No Acute Distress - Head Exam Head Exam: ATRAUMATIC, NORMAL INSPECTION, NORMOCEPHALIC - Eye Exam Eye Exam: EOMI, Normal appearance, PERRL - ENT Exam ENT Exam: Mucous Membranes Moist, Normal Exam Additional comments: Wearing non-rebreather - Respiratory Exam Respiratory Exam: Wheezes (crackles heard at lung bases. ). absent: Chest Wall Tenderness, Decreased Breath Sounds, Rales, Rhonchi, Respiratory Distress - Cardiovascular Exam Cardiovascular Exam: REGULAR RHYTHM, +S1, +S2. absent: Murmur - GI/Abdominal Exam GI & Abdominal Exam: Soft, Normal Bowel Sounds. absent: Tenderness - Extremities Exam Extremities Exam: Full ROM, Normal Capillary Refill, Normal Inspection. absent: Joint Swelling, Pedal Edema - Neurological Exam Neurological Exam: Alert, Awake, CN II-XII Intact, Normal Gait, Oriented x3 Neuro motor strength exam: Left Upper Extremity: 5, Right Upper Extremity: 5, Left Lower Extremity: 5, Right Lower Extremity: 5 - Skin Skin Exam: Dry, Intact, Normal Color, Warm Assessment and Plan - Assessment and Plan (Free Text) Assessment: 87 year old M with PMHx of DM, HTN, HLD presenting for 2 week history of cough and 3 day hx of generalized weakness, CXR demonstrating LLL infiltration L>R, likely pneumonia. Patient admitted for cough and sob 2/2 PNA. 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 Keating) - D/w pulmonology (Dr. Keating) over the phone to start patient on lasix 40 mg IVP and reassess. Patient has underlying cardiomyopathies ontop of CAP. - Echo: EF 32%. Infero-lateral hypokinesis. No thrombus. - c/w azithromycin and rocephin - CXR: lower lobe infiltrates L>R, likely atelectasis/pneumonia - Chest CT: no evidence of PE. Multifocal PNA of lower lobes. Small bilateral pleural effusions. - Procalitonin elevated at 5.06 - f/u blood, urine and sputum cultures - Legionella urine negative NSTEMI - Cardiology (Dr. Carlos covering for Dr. Avila) consulted. Recs appreciated. c/w IV cardizem 120 mg daily, ASA 81 mg daily, Cilostazol 100mg BID, Lipitor 40mg daily, Cozaar 100mg daily, Lopressor 25mg daily - heparin gtt - Pt is having no active chest pain, and is non diaphoretic - EKG: sinus tachy at 107 bpm, RBBB - Repeat EKG: sinus tachy at 125 bpm, RBBB - inital trop = .03, trop #2 elevated 0.88 - NSTEMI protocol Hx of DM - ISS medium - Lipid panel wnl - Hgb A1c: 9.0 Hx of HTN - cozaar 100mg PO daily - coreg PO BID PPx, Diet, Disposition - DVT: Heparin - GI: Protonix - Diet: Carb consistent - PT/OT on board Dispo: monitor patient on tele. Case reviewed and discussed with Dr. Reyes <Kartik Reyes - Last Filed: 08/13/18 17:56> Objective - Vital Signs/Intake and Output Vital Signs (last 24 hours): Temp Pulse Resp BP Pulse Ox 97.1 F L 97 H 22 122/67 90 L 08/13/18 12:00 08/13/18 17:46 08/13/18 12:00 08/13/18 17:46 08/13/18 06:00 Intake and Output: 08/13/18 08/13/18 06:59 18:59 Intake Total 2873 Output Total 350 Balance 2523 - Medications Medications: Current Medications Aspirin (Ecotrin) 81 mg PO DAILY [facility] Last Admin: 08/13/18 11:00 Dose: 81 mg Atorvastatin Calcium (Lipitor) 40 mg PO DIN [facility] Last Admin: 08/13/18 17:46 Dose: 40 mg Benzonatate (Tessalon Perles) 100 mg PO TID PRN PRN Reason: Cough Last Admin: 08/13/18 17:46 Dose: 100 mg Carvedilol (Coreg) 3.125 mg PO BID [facility] Last Admin: 08/13/18 17:46 Dose: 3.125 mg Diltiazem HCl (Cardizem Cd) 120 mg PO DAILY [facility] Last Admin: 08/13/18 11:00 Dose: 120 mg Docusate Sodium (Colace) 100 mg PO BID [facility] Last Admin: 08/13/18 17:46 Dose: 100 mg Furosemide (Lasix) 40 mg IVP BID [facility] Heparin Sodium (Porcine) (Heparin) 5,000 units SC Q8 [facility]; Protocol Last Admin: 08/11/18 22:08 Dose: 5,000 units Dextrose (Dextrose 5% In Water 1000 Ml) 1,000 mls @ 0 mls/hr IV .Q0M PRN; Protocol PRN Reason: Hypoglycemia Protocol Ceftriaxone Sodium (Rocephin 1 Gram Ivpb) 1 gm in 100 mls @ 100 mls/hr IVPB DAILY [facility]; Protocol Last Admin: 08/13/18 10:59 Dose: 100 mls/hr Sodium Chloride (Sodium Chloride 0.9%) 1,000 mls @ 100 mls/hr IV .Q10H [facility] Last Admin: 08/13/18 17:48 Dose: Not Given Heparin Sodium/Sodium Chloride (Heparin 58468 Units/250ml 1/2 Normal Saline) 25,000 units in 250 mls @ 7.022 mls/hr IV .Q24H [facility]; Protocol Last Admin: 08/13/18 05:37 Dose: Not Given Azithromycin (Zithromax 500mg In Ns) 500 mg in 250 mls @ 167 mls/hr IVPB DAILY [facility]; Protocol Last Admin: 08/13/18 10:59 Dose: 167 mls/hr Insulin Human Regular (Humulin R Med) 0 units SC ACHS [facility]; Protocol Last Admin: 08/13/18 17:46 Dose: 5 u Losartan Potassium (Cozaar) 100 mg PO DAILY [facility] Last Admin: 08/13/18 11:05 Dose: 100 mg Pantoprazole Sodium (Protonix Ec Tab) 40 mg PO 0600 [facility] Last Admin: 08/13/18 05:54 Dose: 40 mg - Labs Labs: 08/11/18 17:40 08/11/18 17:40 APTT 45.3 Seconds (25.1-36.5) H 08/13/18 11:00 Attending/Attestation - Attestation I have personally seen and examined this patient.: Yes I have fully participated in the care of the patient.: Yes I have reviewed all pertinent clinical information, including history, physical exam and plan: Yes Notes (Text): 08/13/18 17:51 87 year old male with past medical history of hypertension and diabetes who presented with complaint of generalized weakness and cough. He was found to have bilateral lower lobe pneumonia (L>R) on CXR and CT chest. He is on iv antibiotics. Procalcitonin is elevated. Will follow up on cultures. He was also found to have possible NSTEMI with elevated troponins and started on heparin drip, aspirin, and statin. Echocardiogram shows severely impaired systolic function and inferolateral hypokinesis. He is started on lasix. Cardiology is following. Overnight he was noted to be hypoxic on 5L O2. He reports he is chronically on home O2. ABG reviewed. Pulmonary evaluation was requested. Later in the evening patient began to have hemoptysis. Heparin drip is on hold. Cardiology and hood maker notified. Patient will be transferred to ICU for close observation. Kartik Reyes MD Hospitalist.
--- NOTE | 2018-08-13 18:14 | PN ---
DATE: 08/13/2018 SUBJECTIVE: The patient is still experiencing shortness of breath. He denies exertional chest pain. PHYSICAL EXAMINATION VITAL SIGNS: Blood pressure 121/65, heart rate 93, temperature 98.7, respirations 20. HEENT: Normocephalic. CHEST: Absent breath sounds over both lung bases. HEART: S1 and S2 regular. EXTREMITIES: No edema. LABORATORY DATA: Chest CT angio, no evidence of pulmonary embolus. Confluent airspace disease in lower lobes and inferior lingula, may represent multifocal pneumonia, small bilateral pleural effusion. Echocardiographic study revealed anterolateral hypokinesis with severely depressed ejection fraction. EKG revealed sinus tachycardia, right bundle-branch block, inferior infarct of indeterminate age. ASSESSMENT: 1. Non-ST elevation myocardial infarction. 2. Bilateral pneumonia. 3. Uncontrolled diabetes mellitus. RECOMMENDATIONS: Continue Cardizem CD at 120 mg daily, Coreg 3.125 mg once a day, Cozaar 100 mg once a day, aspirin 81 mg once a day, heparin can be changed to subcutaneous heparin 5000 units every 8 hours. Continue once a day, Lipitor 40 mg once a day, Pletal 100 mg twice a day, and IV Zithromax 500 mg daily. The case will be discussed with Dr. Tam Avila on Wednesday. Jethro Carlos MD
[2018-08-13 20:14] LABS: ARTERIAL BLOOD GAS HCO3 16.2 mmol/L (21-28); ARTERIAL BLOOD GAS O2 CAPACITY 12.4 mL/dl (16-24); ARTERIAL BLOOD GAS O2 CONTENT 11.3 ML/dl (15-23); ARTERIAL BLOOD GAS O2 SAT 91.4 % (95-98); ARTERIAL BLOOD GAS PCO2 28 mm/Hg (35-45); ARTERIAL BLOOD GAS PH 7.37 (7.35-7.45); ARTERIAL BLOOD GAS TCO2 17.1 mmol.L (22-28)
[2018-08-13] MEDS ORDERED: Levalbuterol 1.25 MG/3 ML Inhal Soln UD ONE (21:07)
[2018-08-13] MEDS: Levalbuterol 1.25 MG/3 ML Inhal Soln UD IH SCH (21:09)
--- NOTE | 2018-08-13 21:42 | CP.PCM.CON ---
<Kimberlee Bellamy - Last Filed: 08/13/18 21:38> History of Present Illness - History of Present Illness History of Present Illness: Kimberlee Bellamy, PGY2, ICU Consult Note for Dr Mari Keating: Reason for consult: hypoxia, pneumonia 87 year old male with PMH DM, HTN, HLD, initially [place] [facility] [place], generalized weakness, found to have bilateral lower lobe pneumonia (left>right). Patient was being treated with appropriate IV antibiotics. Patient then had a rise in his troponin 0.88 (from 0.03), started on heparin drip as per Cardio. Patient then noted to have depressed ejection fration 32% on echocardiogram with anterolateral hypokinesis. Patient developed hemoptysis, stopped heparin drip. CTA neg for PE. Patient noted to have desaturations of 80-90%, placed on nonrebreather mask, with continued desaturation. ABG obtained revealed hypoxia on 100% FiO2 on NRB. Currently, patient states that he feels mild sob, but denies nausea, vomiting, chest pain, diaphoresis, palpitaitons, dizziness, fevers, chills, urinary symptoms, abdominal pain. Patient transferred to ICU for further management of hypoxia. 12 point ROS obtained and negative, except as per HPI. Pmhx: DM, HTN, HLD Pshx: Skin cancer excision from legs x3 - benign All: NKDA Social: Occasional smoker, 1 cigar/month, No etoh or illicit drug use Fam: Non-contributory PMD: [place] Review of Systems - Review of Systems All systems: reviewed and no additional remarkable complaints except Review of Systems: as per HPI Past Patient History - Infectious Disease Hx of Infectious Diseases: None - Tetanus Immunizations Tetanus Immunization: Unknown - Past Social History Smoking Status: Current Some Days Smoker - CARDIAC Hx Pacemaker: No - PULMONARY Hx Respiratory Disorders: Yes Hx Pneumonia: Yes - NEUROLOGICAL Hx Paralysis: No - HEENT Hx HEENT Problems: No - RENAL Hx Kidney Stones: Yes - ENDOCRINE/METABOLIC Hx Diabetes Mellitus Type 2: Yes - HEMATOLOGICAL/ONCOLOGICAL Hx Blood Transfusions: No - INTEGUMENTARY Hx Dermatological Problems: No - MUSCULOSKELETAL/RHEUMATOLOGICAL Hx Musculoskeletal Disorders: Yes - GASTROINTESTINAL Hx Diarrhea: Yes (x1 week, pt just finished abx for uri) - GENITOURINARY/GYNECOLOGICAL Hx Genitourinary Disorders: No - PSYCHIATRIC Hx Emotional Abuse: No Hx Physical Abuse: No Hx Substance Use: No - SURGICAL HISTORY Other/Comment: Something to do with his throat. Pt doesn't know exactly what the problem was. - ANESTHESIA Hx Anesthesia Reactions: No Hx Malignant Hyperthermia: No Meds Allergies/Adverse Reactions: Allergies Allergy/AdvReac Type Severity Reaction Status Date / Time No Known Allergies Allergy Verified 08/11/18 16:57 - Medications Medications: Current Medications Aspirin (Ecotrin) 81 mg PO DAILY [facility] Last Admin: 08/13/18 11:00 Dose: 81 mg Atorvastatin Calcium (Lipitor) 40 mg PO DIN [facility] Last Admin: 08/13/18 17:46 Dose: 40 mg Benzonatate (Tessalon Perles) 100 mg PO TID PRN PRN Reason: Cough Last Admin: 08/13/18 17:46 Dose: 100 mg Carvedilol (Coreg) 3.125 mg PO BID [facility] Last Admin: 08/13/18 17:46 Dose: 3.125 mg Diltiazem HCl (Cardizem Cd) 120 mg PO DAILY [facility] Last Admin: 08/13/18 11:00 Dose: 120 mg Docusate Sodium (Colace) 100 mg PO BID [facility] Last Admin: 08/13/18 17:46 Dose: 100 mg Furosemide (Lasix) 40 mg IVP BID [facility] Last Admin: 08/13/18 18:12 Dose: 40 mg Heparin Sodium (Porcine) (Heparin) 5,000 units SC Q8 [facility]; Protocol Last Admin: 08/11/18 22:08 Dose: 5,000 units Dextrose (Dextrose 5% In Water 1000 Ml) 1,000 mls @ 0 mls/hr IV .Q0M PRN; Protocol PRN Reason: Hypoglycemia Protocol Ceftriaxone Sodium (Rocephin 1 Gram Ivpb) 1 gm in 100 mls @ 100 mls/hr IVPB DAILY [facility]; Protocol Last Admin: 08/13/18 10:59 Dose: 100 mls/hr Heparin Sodium/Sodium Chloride (Heparin 40440 Units/250ml 1/2 Normal Saline) 25,000 units in 250 mls @ 7.022 mls/hr IV .Q24H REN; Protocol Last Admin: 08/13/18 05:37 Dose: Not Given Azithromycin (Zithromax 500mg In Ns) 500 mg in 250 mls @ 167 mls/hr IVPB DAILY REN; Protocol Last Admin: 08/13/18 10:59 Dose: 167 mls/hr Insulin Human Regular (Humulin R Med) 0 units SC ACHS [facility]; Protocol Last Admin: 08/13/18 17:46 Dose: 5 u Levalbuterol HCl (Xopenex) 1.25 mg IH [id number] [facility] Last Admin: 08/13/18 21:09 Dose: 1.25 mg Losartan Potassium (Cozaar) 100 mg PO DAILY [facility] Pantoprazole Sodium (Protonix Ec Tab) 40 mg PO 0600 [facility] Last Admin: 08/13/18 05:54 Dose: 40 mg Physical Exam - Constitutional Appears: Non-toxic - Head Exam Head Exam: ATRAUMATIC, NORMOCEPHALIC - Eye Exam Eye Exam: EOMI, PERRL. absent: Scleral icterus Pupil Exam: NORMAL ACCOMODATION, PERRL. absent: Fixed, Irregular, Miosis, Unequal - ENT Exam ENT Exam: Mucous Membranes Moist - Neck Exam Neck exam: Positive for: Full Rom - Respiratory Exam Respiratory Exam: absent: Accessory Muscle Use, Chest Wall Tenderness, Decreased Breath Sounds, Rales, Rhonchi, Wheezes, Respiratory Distress, Stridor Additional comments: + bibasilar crackles - Cardiovascular Exam Cardiovascular Exam: RRR, +S1, +S2. absent: Systolic Murmur - GI/Abdominal Exam GI & Abdominal Exam: Normal Bowel Sounds, Soft. absent: Firm, Guarding, Organomegaly, Rebound, Rigid, Tenderness - Extremities Exam Extremities exam: Positive for: normal inspection. Negative for: calf tenderness, pedal edema - Back Exam Back exam: NORMAL INSPECTION. absent: CVA tenderness (L), CVA tenderness (R) - Neurological Exam Neurological exam: Alert, Oriented x3 - Psychiatric Exam Psychiatric exam: Normal Affect, Normal Mood - Skin Skin Exam: Dry, Normal Color, Warm Results - Vital Signs Recent Vital Signs: Last Vital Signs Temp 98 F 08/13/18 18:00 Pulse 96 H 08/13/18 18:00 Resp 19 08/13/18 18:00 BP 122/65 08/13/18 18:12 Pulse Ox 93 L 08/13/18 18:00 - Labs Result Diagrams: 08/11/18 17:40 08/11/18 17:40 Labs: Laboratory Results - last 24 hr 08/13/18 08/13/18 08/13/18 01:20 10:05 11:00 APTT 45.8 H 45.3 H pCO2 27 L pO2 86.0 HCO3 16.0 L ABG pH 7.38 ABG Total CO2 16.8 L ABG O2 Saturation 98.8 H ABG O2 Content 12.9 L ABG Base Excess -8.0 L ABG Hemoglobin 9.5 L ABG Carboxyhemoglobin 1.7 H POC ABG HHb (Measured) 1.2 ABG Methemoglobin 1.2 ABG O2 Capacity 13.1 L Hgb O2 Saturation 95.9 FiO2 100.0 08/13/18 20:09 APTT pCO2 28 L pO2 49.0 L HCO3 16.2 L ABG pH 7.37 ABG Total CO2 17.1 L ABG O2 Saturation 91.4 L ABG O2 Content 11.3 L ABG Base Excess -8.1 L ABG Hemoglobin 9.0 L ABG Carboxyhemoglobin 1.9 H POC ABG HHb (Measured) 8.4 H ABG Methemoglobin 0.7 ABG O2 Capacity 12.4 L Hgb O2 Saturation 88.9 L FiO2 100.0 Assessment & Plan - Assessment and Plan (Free Text) Assessment: 87 year old male with PMH DM, HTN, HLD, initially admitted for bilateral CAP, developed NSTEMI. Patient now found to be hypoxic likely from cardiogenic pulmonary edema: Neuro: AAOx4. No change in mental status. Monitor. Pulm: Hypoxia 2/2 likely new onset CHF from NSTEMI - lasix 40 IV x2 given today. - will discontinue IVF - monitor strict I&Os, daily weights. - ABG showed pH 7.37, pCO2 28, pO2 49, HCO3 16.2 on 100% FiO2. - started on bipap 09/08, FiO2 100% - Maintain Sats>93-95% - Xopenex ren - Will repeat ABG at 12 midnight. - monitor CAP: c/w azithromycin and rocephin. - CXR: lower lobe infiltrates L>R, likely atelectasis/pneumonia - Chest CT: no evidence of PE. Multifocal PNA of lower lobes. Small bilateral pleural effusions. Cardio: NSTEMI, chf: - trop elevated. EKG showed sinus tachycardia with RBBB. inferior infarct of undetermined age. - Discontinued heparin drip due to hemoptysis. - Cardio Dr Lutz on board. F/u recs. - lasix 40 IV BID, strict I&Os, daily weights - f/u trops, EKG Hx of HTN: - On ASA 81, cozaar 100 mg, cardizem 120 mg (holding parameters in place). - monitor GI: protonix. NPO. Renal: BUN/Cr 22/1.3 (baseline Cr 1.3). Replace lytes. Monitor. Will obtain cmp daily. Endo: ISS. Maintain euglycemia. PPX: protonix, scds (heparin drip held due to hemoptysis) Case seen and discussed with Dr Mari Keating. <Phi Keating - Last Filed: 08/15/18 15:17> Meds - Medications Medications: Current Medications Acetylcysteine (Acetylcysteine 20%) 4 ml IH BIDRESP [facility] Last Admin: 08/15/18 07:19 Dose: 4 ml Aspirin (Ecotrin) 81 mg PO DAILY [facility] Last Admin: 08/14/18 09:53 Dose: 81 mg Atorvastatin Calcium (Lipitor) 40 mg PO DIN [facility] Last Admin: 08/14/18 17:08 Dose: 40 mg Benzonatate (Tessalon Perles) 100 mg PO TID PRN PRN Reason: Cough Last Admin: 08/14/18 21:20 Dose: 100 mg Carvedilol (Coreg) 3.125 mg PO BID [facility] Last Admin: 08/14/18 17:07 Dose: 3.125 mg Clopidogrel Bisulfate (Plavix) 75 mg PO DAILY [facility] Last Admin: 08/15/18 09:45 Dose: 75 mg Diltiazem HCl (Cardizem Cd) 120 mg PO DAILY [facility] Last Admin: 08/14/18 09:54 Dose: 120 mg Docusate Sodium (Colace) 100 mg PO BID [facility] Last Admin: 08/14/18 17:08 Dose: 100 mg Heparin Sodium (Porcine) (Heparin) 5,000 units SC Q8 [facility]; Protocol Last Admin: 08/15/18 06:35 Dose: 5,000 units Dextrose (Dextrose 5% In Water 1000 Ml) 1,000 mls @ 0 mls/hr IV .Q0M PRN; Protocol PRN Reason: Hypoglycemia Protocol Ceftriaxone Sodium (Rocephin 1 Gram Ivpb) 1 gm in 100 mls @ 100 mls/hr IVPB DAILY [facility]; Protocol Last Admin: 08/15/18 11:37 Dose: 100 mls/hr Azithromycin (Zithromax 500mg In Ns) 500 mg in 250 mls @ 167 mls/hr IVPB DAILY [facility]; Protocol Last Admin: 08/15/18 11:58 Dose: 167 mls/hr Sodium Chloride (Sodium Chloride 0.9%) 1,000 mls @ 100 mls/hr IV .Q10H REN Stop: 08/15/18 16:00 Last Admin: 08/15/18 11:44 Dose: 100 mls/hr Insulin Human Regular (Humulin R Med) 0 units SC ACHS [facility]; Protocol Last Admin: 08/15/18 14:00 Dose: Not Given Levalbuterol HCl (Xopenex) 1.25 mg IH [id number] [facility] Last Admin: 08/15/18 13:28 Dose: 1.25 mg Losartan Potassium (Cozaar) 100 mg PO DAILY [facility] Last Admin: 08/14/18 09:54 Dose: 100 mg Pantoprazole Sodium (Protonix Ec Tab) 40 mg PO 0600 [facility] Last Admin: 08/15/18 06:36 Dose: 40 mg Results - Vital Signs Recent Vital Signs: Last Vital Signs Temp 98.2 F 08/15/18 13:54 Pulse 106 H 08/15/18 13:39 Resp 20 08/15/18 13:39 BP 127/66 08/15/18 13:39 Pulse Ox 90 L 08/15/18 09:18 - Labs Result Diagrams: 08/15/18 05:20 08/15/18 14:00 Labs: Laboratory Results - last 24 hr 08/11/18 08/13/18 08/13/18 21:00 07:58 11:07 WBC RBC Hgb Hct MCV MCH MCHC RDW Plt Count MPV Gran % Lymph % (Auto) Carson % (Auto) Eos % (Auto) Baso % (Auto) Gran # Lymph # (Auto) Carson # (Auto) Eos # (Auto) Baso # (Auto) pCO2 pO2 HCO3 ABG pH ABG Total CO2 ABG O2 Saturation ABG O2 Content ABG Base Excess ABG Hemoglobin ABG Carboxyhemoglobin POC ABG HHb (Measured) ABG Methemoglobin ABG O2 Capacity Hgb O2 Saturation FiO2 Sodium Potassium Chloride Carbon Dioxide Anion Gap BUN Creatinine Est GFR ( Amer) Est GFR (Non-Af Amer) POC Glucose (mg/dL) 151 H 192 H Random Glucose Calcium Phosphorus Magnesium Total Bilirubin AST ALT Alkaline Phosphatase Total Protein Albumin Globulin Albumin/Globulin Ratio Mycoplasma pneumon IgG 1.52 H Mycoplasma pneumon IgM 7 08/13/18 08/13/18 08/14/18 16:09 22:08 07:57 WBC RBC Hgb Hct MCV MCH MCHC RDW Plt Count MPV Gran % Lymph % (Auto) Carson % (Auto) Eos % (Auto) Baso % (Auto) Gran # Lymph # (Auto) Carson # (Auto) Eos # (Auto) Baso # (Auto) pCO2 pO2 HCO3 ABG pH ABG Total CO2 ABG O2 Saturation ABG O2 Content ABG Base Excess ABG Hemoglobin ABG Carboxyhemoglobin POC ABG HHb (Measured) ABG Methemoglobin ABG O2 Capacity Hgb O2 Saturation FiO2 Sodium Potassium Chloride Carbon Dioxide Anion Gap BUN Creatinine Est GFR ( Amer) Est GFR (Non-Af Amer) POC Glucose (mg/dL) 251 H 228 H 226 H Random Glucose Calcium Phosphorus Magnesium Total Bilirubin AST ALT Alkaline Phosphatase Total Protein Albumin Globulin Albumin/Globulin Ratio Mycoplasma pneumon IgG Mycoplasma pneumon IgM 08/14/18 08/14/18 08/14/18 11:19 16:18 21:27 WBC RBC Hgb Hct MCV MCH MCHC RDW Plt Count MPV Gran % Lymph % (Auto) Carson % (Auto) Eos % (Auto) Baso % (Auto) Gran # Lymph # (Auto) Carson # (Auto) Eos # (Auto) Baso # (Auto) pCO2 pO2 HCO3 ABG pH ABG Total CO2 ABG O2 Saturation ABG O2 Content ABG Base Excess ABG Hemoglobin ABG Carboxyhemoglobin POC ABG HHb (Measured) ABG Methemoglobin ABG O2 Capacity Hgb O2 Saturation FiO2 Sodium Potassium Chloride Carbon Dioxide Anion Gap BUN Creatinine Est GFR ( Amer) Est GFR (Non-Af Amer) POC Glucose (mg/dL) 230 H 267 H 198 H Random Glucose Calcium Phosphorus Magnesium Total Bilirubin AST ALT Alkaline Phosphatase Total Protein Albumin Globulin Albumin/Globulin Ratio Mycoplasma pneumon IgG Mycoplasma pneumon IgM 08/15/18 08/15/18 08/15/18 05:20 05:20 07:37 WBC 13.4 H RBC 3.46 L Hgb 9.3 L Hct 27.2 L MCV 78.6 L MCH 26.9 MCHC 34.2 RDW 15.1 H Plt Count 224 MPV 8.8 Gran % 79.1 H Lymph % (Auto) 9.2 L Carson % (Auto) 9.6 H Eos % (Auto) 2.0 Baso % (Auto) 0.1 Gran # 10.62 H Lymph # (Auto) 1.2 Carson # (Auto) 1.3 H Eos # (Auto) 0.3 Baso # (Auto) 0.02 pCO2 pO2 HCO3 ABG pH ABG Total CO2 ABG O2 Saturation ABG O2 Content ABG Base Excess ABG Hemoglobin ABG Carboxyhemoglobin POC ABG HHb (Measured) ABG Methemoglobin ABG O2 Capacity Hgb O2 Saturation FiO2 Sodium 138 Potassium 2.9 L* Chloride 104 Carbon Dioxide 24 Anion Gap 13 BUN 25 H Creatinine 1.5 Est GFR ( Amer) 54 Est GFR (Non-Af Amer) 44 POC Glucose (mg/dL) 182 H Random Glucose 192 H Calcium 8.2 L Phosphorus 2.2 L Magnesium 1.7 Total Bilirubin 0.4 AST 42 ALT 35 Alkaline Phosphatase 99 Total Protein 6.4 Albumin 3.0 Globulin 3.5 Albumin/Globulin Ratio 0.9 L Mycoplasma pneumon IgG Mycoplasma pneumon IgM 08/15/18 08/15/18 08/15/18 08:10 11:33 14:00 WBC RBC Hgb Hct MCV MCH MCHC RDW Plt Count MPV Gran % Lymph % (Auto) Carson % (Auto) Eos % (Auto) Baso % (Auto) Gran # Lymph # (Auto) Carson # (Auto) Eos # (Auto) Baso # (Auto) pCO2 28 L pO2 49.0 L HCO3 19.5 L ABG pH 7.45 ABG Total CO2 20.4 L ABG O2 Saturation 90.9 L ABG O2 Content 10.9 L ABG Base Excess -3.8 L ABG Hemoglobin 8.7 L ABG Carboxyhemoglobin 2.0 H POC ABG HHb (Measured) 8.9 H ABG Methemoglobin 0.5 ABG O2 Capacity 12.0 L Hgb O2 Saturation 88.6 L FiO2 44.0 Sodium 137 Potassium 4.2 Chloride 108 H Carbon Dioxide 19 L Anion Gap 14 BUN 24 H Creatinine 1.3 Est GFR ( Amer) > 60 Est GFR (Non-Af Amer) 52 POC Glucose (mg/dL) 183 H Random Glucose 190 H Calcium 8.1 L Phosphorus Magnesium Total Bilirubin AST ALT Alkaline Phosphatase Total Protein Albumin Globulin Albumin/Globulin Ratio Mycoplasma pneumon IgG Mycoplasma pneumon IgM Addendum Addendum: 08/15/18 15:16 ICU Attending Addendum Patient seen and examined on 08/13/2018/ Addendum reflect my interview and evaluation from 08/13. Agree with resident note above with the following additions/exceptions: 87 M PMH DM, HTN, HLD we were asked to see on the floors for hypoxia. Initially presented [place] [facility] [place], generalized weakness found to be hypoxic being tx as bilateral lower lobe pneumonia (left>right). He was tx IV antibiotics and incresing o2 requirements. Upon my evaluation, CT may appear to show a multifocal PNA however the CXR does not show upper lobe pathology as severe as the CT does. This may be since the CXR was upright which would suggest a fluid component more so than inflammatory. In addition his TNI was elevated. Would tx him as NSTEMI - card io board follow recs diuresis with lasix 60 BID Cont broad abx switch to HiFlow Reports of some hemoptysis, unclear if this is hemoptysis or hematemesis. Will cont to monitor Rest of care as above Phi Keating MD Pulmonary Critical Care and Sleep Medicine Critical Care Time: 31mins
[2018-08-13 21:48] LABS: BASO # 0.02 K/mm3 (0.0-2.0); BASO % 0.1 % (0.0-3.0); EOS # 0.1 (0.0-0.7); EOS % 0.9 % (1.5-5.0); GRAN # 11.95 (1.4-6.5); GRAN % 85.8 % (50.0-68.0); HEMOGLOBIN 10.2 g/dL (14.0-18.0); LYMPH # 1.1 (1.2-3.4); LYMPH % 7.7 % (22.0-35.0); MEAN CELL VOLUME 79.9 fl (80.0-105.0); MEAN CORPUSCULAR HEMOGLOBIN 26.9 pg (25.0-35.0); MEAN CORPUSCULAR HGB CONC 33.7 g/dl (31.0-37.0); MEAN PLATELET VOLUME 8.7 fl (7.0-11.0); MONO # 0.8 (0.1-0.6); MONO % 5.5 % (1.0-6.0); RBC 3.79 10^6/uL (3.5-6.1); RED CELL DISTRIBUTION WIDTH 15.2 % (11.5-14.5); WHITE BLOOD COUNT 13.9 10^3/uL (4.5-11.0)
[2018-08-13 22:11] LABS: ALB/GLOB RATIO 0.9 (1.1-1.8); ALBUMIN 3.1 g/dL (3.0-4.8)
[2018-08-13 22:22] LABS: TROPONIN I 2.55 ng/mL
[2018-08-14 00:25] LABS: SOURCE SERUM
[2018-08-14 00:42] LABS: ARTERIAL BLOOD GAS HEMOGLOBIN 9.5 g/dL (11.7-17.4); ARTERIAL BLOOD GAS O2 CAPACITY 13.2 mL/dl (16-24); ARTERIAL BLOOD GAS O2 CONTENT 13.1 ML/dl (15-23); ARTERIAL BLOOD GAS PCO2 25 mm/Hg (35-45); ARTERIAL BLOOD GAS PH 7.44 (7.35-7.45); ARTERIAL BLOOD GAS TCO2 17.8 mmol.L (22-28)
[2018-08-14] MEDS: Levalbuterol 1.25 MG/3 ML Inhal Soln UD IH SCH ×4 (01:33→19:45)
[2018-08-14] MEDS: Acetylcysteine 20% Inhal Soln (4ml) IH SCH ×3 (01:33→19:45)
[2018-08-14 05:57] LABS: BASO # 0.01 K/mm3 (0.0-2.0); BASO % 0.1 % (0.0-3.0); EOS # 0.1 (0.0-0.7); EOS % 0.7 % (1.5-5.0); GRAN # 13.39 (1.4-6.5); GRAN % 86.9 % (50.0-68.0); HEMOGLOBIN 9.8 g/dL (14.0-18.0); LYMPH # 0.9 (1.2-3.4); LYMPH % 5.7 % (22.0-35.0); MEAN CELL VOLUME 79.7 fl (80.0-105.0); MEAN CORPUSCULAR HEMOGLOBIN 26.5 pg (25.0-35.0); MEAN CORPUSCULAR HGB CONC 33.2 g/dl (31.0-37.0); MEAN PLATELET VOLUME 9.1 fl (7.0-11.0); MONO % 6.6 % (1.0-6.0); RBC 3.7 10^6/uL (3.5-6.1); RED CELL DISTRIBUTION WIDTH 15.2 % (11.5-14.5); WHITE BLOOD COUNT 15.4 10^3/uL (4.5-11.0)
[2018-08-14 06:00] LABS: ALB/GLOB RATIO 0.9 (1.1-1.8); ALBUMIN 3.2 g/dL (3.0-4.8); CALCIUM 8.3 mg/dL (8.4-10.5)
[2018-08-14 06:14] LABS: ARTERIAL BLOOD GAS HCO3 18.8 mmol/L (21-28); ARTERIAL BLOOD GAS HEMOGLOBIN 9.2 g/dL (11.7-17.4); ARTERIAL BLOOD GAS O2 CAPACITY 12.8 mL/dl (16-24); ARTERIAL BLOOD GAS O2 CONTENT 12.7 ML/dl (15-23); ARTERIAL BLOOD GAS O2 SAT 99.5 % (95-98); ARTERIAL BLOOD GAS PCO2 27 mm/Hg (35-45); ARTERIAL BLOOD GAS PH 7.45 (7.35-7.45); ARTERIAL BLOOD GAS TCO2 19.6 mmol.L (22-28)
[2018-08-14] MEDS: Pantoprazole 40 mg EC Tab PO SCH (06:25)
[2018-08-14] MEDS ORDERED: Potassium Chloride 20 mEq ER Tab PO STA (07:09)
[2018-08-14] MEDS: Insulin Reg-MEDIUM-Coverage SC SCH ×4 (07:30→21:51)
[2018-08-14] MEDS: diltiaZEM 120 mg/24 Hours CD Cap PO SCH (09:54)
[2018-08-14] MEDS: cefTRIAXone 1 gm 1 GM/100 ML BAG IVPB SCH (09:56)
--- NOTE | 2018-08-14 10:36 | CARD ---
APPROVED REPORT Date of service: 08/14/2018 EKG Measurement Heart [id number] <Conclusion> Accelerated Junctional rhythm Left axis deviation Pulmonary disease pattern Inferior infarct, age undetermined T wave abnormality, consider anterolateral ischemia Abnormal ECG
--- NOTE | 2018-08-14 10:36 | CARD ---
APPROVED REPORT Date of service: 08/14/2018 EKG Measurement Heart [id number] <Conclusion> Normal sinus rhythm Right bundle branch block Left anterior fascicular block Bifascicular block Inferior infarct, age undetermined T wave abnormality, consider lateral ischemia Abnormal ECG
--- NOTE | 2018-08-14 10:40 | PN ---
DATE: 08/14/2018 BUSINESS DEVELOPMENT COORDINATOR NOTE SUBJECTIVE: The patient is resting comfortably with BiPAP and O2 support. No respiratory distress at this time. O2 saturations are stable. The patient has no active cough but slight congestion. No complaints of chest pain, nauseousness or vomiting, no diarrhea. PHYSICAL EXAMINATION: VITAL SIGNS: Note that his temperature is 98.4, his pulse is 86, respirations are 30 and BP is 124/58, O2 saturation is 99% with BiPAP support. HEENT: Head is atraumatic, normocephalic. Eyes reactive to light. Ears, nose and throat seem to be within normal limits. NECK: Supple. No JVD. No thyroid enlargement, no lymph nodes. HEART: Has regular rate and rhythm. Normal S1, S2. LUNGS: Reveal bilateral rhonchi and mild decreased breath sounds at the bases. ABDOMEN: Soft, nontender. Normal bowel sounds. GENITALIA AND RECTAL: Deferred. MUSCULOSKELETAL: No joint deformities. EXTREMITIES: Reveal no edema. NEUROLOGIC: He seemed to be grossly intact. LABORATORY DATA: As far as his laboratories are concerned, his white count is 15.4, hemoglobin is 9.8 and his hematocrit is 29.5 with platelets of 268,000. Arterial blood gas reveals a pH of 7.45, pCO2 of 27, pO2 of 101. The patient's sodium is 140, potassium 3.1, chloride 106, CO2 of 24 with a BUN of 27, creatinine of 1.6 and glucose of 218. The patient's last troponin was 2.55. The patient's chest x-ray is pending. IMPRESSION: As far as my impression, this patient has bilateral lower lobe pneumonia with myocardial infarction, noted to have increased troponins. He has history of diabetes, hypertension, hyperlipidemia, anemia and renal insufficiency. The pneumonia is felt to be community-acquired. PLAN: As far as our plan, we will continue with the BiPAP and support with O2 and follow his O2 saturations closely. We will continue to get daily arterial blood gases and chest x-ray. Continue with aggressive pulmonary toilet and the patient is getting Mucomyst, Cardizem, his Coreg and his Colace. He is also on Cozaar as well as Ecotrin. The patient is getting subcu heparin and continues with Lasix for appropriate diuresis. He is on Lipitor, Protonix, Rocephin as well as Tessalon Perles, Zithromax and Xopenex. We will continue to treat aggressively along with the other consultants and the primary care doctor. Robby Arvizu MD
--- NOTE | 2018-08-14 11:55 | CP.PCM.PN ---
<Honorio Marrero - Last Filed: 08/14/18 12:14> Subjective - Date & Time of Evaluation Date of Evaluation: 08/14/18 Time of Evaluation: 07:00 - Subjective Subjective: Honorio Marrero PGY1 Medicine Progress Note for Dr. Reyes Patient seen and examined at bedside this morning. Patient was transferred from tele to ICU yesterday due to hypoxia while on non-rebreather. Coincidentally, patient also had some hemoptysis during this time. Vital signs stable this morning. Patient has been on BiPAP 09/08/100% FiO2. This morning, patient does not have any hemoptysis. His shortness of breath is improved with the BiPAP. Patient denied cp, abd pain, n/v/d, and numbness/tingling. A full 12 point ROS was conducted and unremarkable except as stated above. Objective - Vital Signs/Intake and Output Vital Signs (last 24 hours): Temp Pulse Resp BP Pulse Ox 98.4 F 84 30 H 116/60 99 08/14/18 06:00 08/14/18 09:54 08/14/18 06:00 08/14/18 09:55 08/14/18 06:00 Intake and Output: 08/14/18 08/14/18 06:59 18:59 Intake Total 90 Output Total 1600 Balance -1510 - Medications Medications: Current Medications Acetylcysteine (Acetylcysteine 20%) 4 ml IH [id number] [facility] Last Admin: 08/14/18 08:27 Dose: 4 ml Aspirin (Ecotrin) 81 mg PO DAILY [facility] Last Admin: 08/14/18 09:53 Dose: 81 mg Atorvastatin Calcium (Lipitor) 40 mg PO DIN [facility] Last Admin: 08/13/18 17:46 Dose: 40 mg Benzonatate (Tessalon Perles) 100 mg PO TID PRN PRN Reason: Cough Last Admin: 08/13/18 17:46 Dose: 100 mg Carvedilol (Coreg) 3.125 mg PO BID [facility] Last Admin: 08/14/18 09:54 Dose: 3.125 mg Diltiazem HCl (Cardizem Cd) 120 mg PO DAILY [facility] Last Admin: 08/14/18 09:54 Dose: 120 mg Docusate Sodium (Colace) 100 mg PO BID [facility] Last Admin: 08/14/18 09:53 Dose: 100 mg Furosemide (Lasix) 40 mg IVP BID [facility] Last Admin: 08/14/18 09:55 Dose: 40 mg Heparin Sodium (Porcine) (Heparin) 5,000 units SC Q8 [facility]; Protocol Last Admin: 08/14/18 06:24 Dose: 5,000 units Dextrose (Dextrose 5% In Water 1000 Ml) 1,000 mls @ 0 mls/hr IV .Q0M PRN; Protocol PRN Reason: Hypoglycemia Protocol Ceftriaxone Sodium (Rocephin 1 Gram Ivpb) 1 gm in 100 mls @ 100 mls/hr IVPB DAILY [facility]; Protocol Last Admin: 08/14/18 09:56 Dose: 100 mls/hr Heparin Sodium/Sodium Chloride (Heparin 99718 Units/250ml 1/2 Normal Saline) 25,000 units in 250 mls @ 7.022 mls/hr IV .Q24H [facility]; Protocol Last Admin: 08/13/18 05:37 Dose: Not Given Azithromycin (Zithromax 500mg In Ns) 500 mg in 250 mls @ 167 mls/hr IVPB DAILY [facility]; Protocol Last Admin: 08/13/18 10:59 Dose: 167 mls/hr Insulin Human Regular (Humulin R Med) 0 units SC ACHS [facility]; Protocol Last Admin: 08/13/18 22:10 Dose: Not Given Levalbuterol HCl (Xopenex) 1.25 mg IH [id number] [facility] Last Admin: 08/14/18 08:27 Dose: 1.25 mg Losartan Potassium (Cozaar) 100 mg PO DAILY [facility] Last Admin: 08/14/18 09:54 Dose: 100 mg Pantoprazole Sodium (Protonix Ec Tab) 40 mg PO 0600 [facility] Last Admin: 08/14/18 06:25 Dose: 40 mg - Labs Labs: 08/14/18 05:30 08/14/18 05:30 APTT 45.3 Seconds (25.1-36.5) H 08/13/18 11:00 - Constitutional Appears: No Acute Distress - Head Exam Head Exam: ATRAUMATIC, NORMAL INSPECTION, NORMOCEPHALIC - Eye Exam Eye Exam: EOMI, Normal appearance, PERRL - ENT Exam ENT Exam: Mucous Membranes Moist, Normal Exam Additional comments: BiPAP in place. - Respiratory Exam Respiratory Exam: Clear to Ausculation Bilateral, NORMAL BREATHING PATTERN. absent: Rales, Rhonchi, Wheezes - Cardiovascular Exam Cardiovascular Exam: REGULAR RHYTHM, +S1, +S2. absent: Murmur - GI/Abdominal Exam GI & Abdominal Exam: Soft, Normal Bowel Sounds. absent: Tenderness - Extremities Exam Extremities Exam: Full ROM, Normal Capillary Refill, Normal Inspection. absent: Joint Swelling, Pedal Edema - Neurological Exam Neurological Exam: Alert, Awake, Oriented x3 - Skin Skin Exam: Dry, Intact, Normal Color, Warm Assessment and Plan - Assessment and Plan (Free Text) Assessment: Patient is a 87 year old M with PMHx of DM, HTN, HLD presenting for 2 week history of cough and 3 day hx of generalized weakness, CXR demonstrating LLL infiltration L>R, likely pneumonia. Patient admitted for cough and sob 2/2 CAP. Recent echo findings suggest CHF-rEF with infero-lateral hypokinesis. Patient also found to have NSTEMI and may go for possible cardiac cath tomorrow. Plan: Cough and SOB 2/2 Community Acquired Pneumonia with CHF-rEF - Patient was hypoxic last night (08/13) while on non-rebreather. Patient also had some hemoptysis during this event. Transferred to ICU. Started on BiPAP 09/08/100%. Given Lasix 80mg IVP. Patient was not in acute respiratory distress and did not require invasive ventilation. - mucomyst BID - c/w azithromycin and rocephin - Leukocytosis - wbc 15.4, trending up from 13.9; afebrile. - c/w BiPAP, maintain SaO2 > 92% - ICU recommendations appreciated. - Echo: EF 32%. Infero-lateral hypokinesis. No thrombus. - CXR: lower lobe infiltrates L>R, likely pneumonia - Chest CT: no evidence of PE. Multifocal PNA of lower lobes. Small bilateral pleural effusions. - f/u blood, urine and sputum cultures NSTEMI with recent echo finding of CHF-rEF and infero-lateral hypokinesis - Curbsided cardiology (Dr. Carlos), patient may go for cardiac cath tomorrow. Patient Cr noted to be 1.6 (baseline 1.3) today, d/w cardio. - NPO after midnight - Elevated troponins .03, 0.88, and most recent 2.55 (trending up) - Echo: EF 32%. Infero-lateral hypokinesis. No thrombus. - Cardiology (Dr. Carlos covering for Dr. Avila) consulted. Recs appreciated. - heparin gtt was held due to recent hemoptysis, c/w ASA - EKG (ED): sinus tachy at 107 bpm, RBBB Episode of hemoptysis possibly 2/2 CAP - Heparin gtt was held - d/w cardio, okay to c/w ASA 81mg - HypoKalemia related to vomiting, K was 3.1. Repleted. - No episodes during current exam - H/H stable - 9.8; no indication for GI at this time Hx of DM - ISS medium - Lipid panel wnl - Hgb A1c: 9.0 Hx of HTN - c/w cozaar and coreg PPx, Diet, Disposition - DVT: Heparin sc - GI: Protonix - Diet: HHD. NPO after midnight. - PT/OT on board Dispo: monitor patient in the ICU. May go for cardiac cath tomorrow. NPO after midnight. Case reviewed and discussed with Dr. Reyes. <Kartik Reyes - Last Filed: 08/14/18 17:19> Objective - Vital Signs/Intake and Output Vital Signs (last 24 hours): Temp Pulse Resp BP Pulse Ox 98.4 F 86 30 H 119/55 L 92 L 08/14/18 06:00 08/14/18 17:07 08/14/18 06:00 08/14/18 17:07 08/14/18 16:15 Intake and Output: 08/14/18 08/14/18 06:59 18:59 Intake Total 90 Output Total 1600 Balance -1510 - Medications Medications: Current Medications Acetylcysteine (Acetylcysteine 20%) 4 ml IH BIDRESP [facility] Aspirin (Ecotrin) 81 mg PO DAILY [facility] Last Admin: 08/14/18 09:53 Dose: 81 mg Atorvastatin Calcium (Lipitor) 40 mg PO DIN [facility] Last Admin: 08/14/18 17:08 Dose: 40 mg Benzonatate (Tessalon Perles) 100 mg PO TID PRN PRN Reason: Cough Last Admin: 08/13/18 17:46 Dose: 100 mg Carvedilol (Coreg) 3.125 mg PO BID [facility] Last Admin: 08/14/18 17:07 Dose: 3.125 mg Clopidogrel Bisulfate (Plavix) 75 mg PO DAILY [facility] Last Admin: 08/14/18 15:42 Dose: 75 mg Diltiazem HCl (Cardizem Cd) 120 mg PO DAILY [facility] Last Admin: 08/14/18 09:54 Dose: 120 mg Docusate Sodium (Colace) 100 mg PO BID [facility] Last Admin: 08/14/18 17:08 Dose: 100 mg Heparin Sodium (Porcine) (Heparin) 5,000 units SC Q8 [facility]; Protocol Last Admin: 08/14/18 15:42 Dose: 5,000 units Dextrose (Dextrose 5% In Water 1000 Ml) 1,000 mls @ 0 mls/hr IV .Q0M PRN; Protocol PRN Reason: Hypoglycemia Protocol Ceftriaxone Sodium (Rocephin 1 Gram Ivpb) 1 gm in 100 mls @ 100 mls/hr IVPB DAILY [facility]; Protocol Last Admin: 08/14/18 09:56 Dose: 100 mls/hr Azithromycin (Zithromax 500mg In Ns) 500 mg in 250 mls @ 167 mls/hr IVPB DAILY [facility]; Protocol Last Admin: 08/14/18 15:42 Dose: 167 mls/hr Insulin Human Regular (Humulin R Med) 0 units SC ACHS [facility]; Protocol Last Admin: 08/14/18 17:07 Dose: 5 u Levalbuterol HCl (Xopenex) 1.25 mg IH [id number] [facility] Last Admin: 08/14/18 14:10 Dose: 1.25 mg Losartan Potassium (Cozaar) 100 mg PO DAILY [facility] Last Admin: 08/14/18 09:54 Dose: 100 mg Pantoprazole Sodium (Protonix Ec Tab) 40 mg PO 0600 [facility] Last Admin: 08/14/18 06:25 Dose: 40 mg - Labs Labs: 08/14/18 05:30 08/14/18 05:30 APTT 45.3 Seconds (25.1-36.5) H 08/13/18 11:00 Attending/Attestation - Attestation I have personally seen and examined this patient.: Yes I have fully participated in the care of the patient.: Yes I have reviewed all pertinent clinical information, including history, physical exam and plan: Yes Notes (Text): 11/11/18 17:16 87 year old male with past medical history of hypertension and diabetes who presented with complaint of generalized weakness and cough. He was found to have bilateral lower lobe pneumonia (L>R) on CXR and CT chest and elevated procalcitonin level. He is on iv antibiotics. He was also found to have possible NSTEMI with elevated troponins and started on heparin drip, aspirin, and statin. Echocardiogram showed severely impaired systolic function and inferolateral hypokinesis and he was started on lasix was well. Heparin drip was later discontinued secondary to hemoptysis. He was transferred to ICU last night for hypoxia and hemoptysis which have improved. Cardiology is following as plan is for possible cardiac cath tomorrow. Creatinine is 1.6 today so lasix and losartan will be held for now. Will replete and repeat potassium. Kartik Reyes MD Hospitalist.
--- NOTE | 2018-08-14 12:00 | RAD ---
Date of service: 08/13/2018 HISTORY: hemoptysis, r/o pulm edema COMPARISON: 08/11/2018 FINDINGS: LUNGS: There are low lung volumes. There is subsegmental atelectasis in the left lower lobe. PLEURA: No pleural effusions or pneumothorax. CARDIOVASCULAR: The heart is normal in size. No aortic atherosclerotic calcification present. OSSEOUS STRUCTURES: Within normal limits for the patient's age. VISUALIZED UPPER ABDOMEN: Normal. OTHER FINDINGS: None. IMPRESSION: Subsegmental atelectasis in the left lower lobe. Low lung volumes.
--- NOTE | 2018-08-14 13:29 | PN ---
DATE: 08/14/2018 SUBJECTIVE: The patient developed shortness of breath and hemoptysis last night, required ICU transfer. Currently, there is no reported hemoptysis. The patient was taken off IV heparin and was replaced by subcutaneous heparin 5000 units every 8 hours. No reported ventricular arrhythmia. PHYSICAL EXAMINATION: VIAL SIGNS: Blood pressure 116/60, heart rate 84, temperature 98.4, respirations 30. HEENT: Normocephalic. CHEST: Minimal basilar rales. HEART: S1, S2 regular. ABDOMEN: Soft. EXTREMITIES: No edema. LABORATORY DATA: Hemoglobin and hematocrit 9.8 and 29.5, white count 15.4, platelet count 168,000. Today's SMA-7, sodium 140, potassium 3.1, chloride 106, CO2 24. Glucose 218, BUN 27, creatinine 1.6. Yesterday's troponin is 2.55. DIAGNOSTIC DATA: Yesterday's EKG revealed sinus rhythm at rate of 92, bifascicular block, i.e., right bundle-branch block with left anterior fascicular block, inferior infarct age indeterminate, new lateral ischemic ST-T wave changes and echocardiogram study revealed severely depressed ejection fraction with inferolateral hypokinesis. ASSESSMENT: 1. Status post [id number] myocardial infarction. 2. Ischemic cardiomyopathy. 3. Bilateral pneumonia. 4. Hemoptysis. 5. Acute renal insufficiency. CONDITIONS: Continue current aspirin 81 mg once a day. Start Plavix 75 mg once a day. Continue subcutaneous heparin at 5000 units every 8 hours. Continue Cardizem CD at 120 mg once a day, Coreg 3.125 mg twice a day. Discontinue Lasix. Continue IV Rocephin and IV Zithromax. The patient will be kept n.p.o. for possible cardiac catheterization by Dr. Avila for tomorrow. Jethro Carlos MD
[2018-08-14] MEDS: Azithromycin 500MG/NS 250ml 500 MG/250 ML BAG IVPB SCH (15:42)
[2018-08-15] MEDS: Levalbuterol 1.25 MG/3 ML Inhal Soln UD IH SCH ×4 (02:03→20:09)
[2018-08-15 05:33] LABS: BASO # 0.02 K/mm3 (0.0-2.0); BASO % 0.1 % (0.0-3.0); EOS # 0.3 (0.0-0.7); GRAN # 10.62 (1.4-6.5); GRAN % 79.1 % (50.0-68.0); HEMOGLOBIN 9.3 g/dL (14.0-18.0); LYMPH # 1.2 (1.2-3.4); LYMPH % 9.2 % (22.0-35.0); MEAN CELL VOLUME 78.6 fl (80.0-105.0); MEAN CORPUSCULAR HEMOGLOBIN 26.9 pg (25.0-35.0); MEAN CORPUSCULAR HGB CONC 34.2 g/dl (31.0-37.0); MEAN PLATELET VOLUME 8.8 fl (7.0-11.0); MONO # 1.3 (0.1-0.6); MONO % 9.6 % (1.0-6.0); RBC 3.46 10^6/uL (3.5-6.1); RED CELL DISTRIBUTION WIDTH 15.1 % (11.5-14.5); WHITE BLOOD COUNT 13.4 10^3/uL (4.5-11.0)
[2018-08-15 06:33] LABS: ALB/GLOB RATIO 0.9 (1.1-1.8); CALCIUM 8.2 mg/dL (8.4-10.5)
[2018-08-15] MEDS ORDERED: Potassium Chloride 20 mEq ER Tab PO STA (06:35)
[2018-08-15] MEDS: Pantoprazole 40 mg EC Tab PO SCH (06:36)
[2018-08-15] MEDS: Acetylcysteine 20% Inhal Soln (4ml) IH SCH ×2 (07:19→20:09)
--- NOTE | 2018-08-15 07:39 | CP.PCM.PN ---
<Jovan Nevarez - Last Filed: 08/15/18 15:57> Subjective - Date & Time of Evaluation Date of Evaluation: 08/15/18 Time of Evaluation: 07:39 - Subjective Subjective: PGY-1 Medicine Progress Note for Dr. Reyes Patient seen and examined sitting by bedside in ICU this AM prior to scheduled cardiac cath procedure. No acute overnight events reported. Patient saturating well on NC, in no acute distress. No chest pain, palpitations, dizziness, acute sob, cough, abdominal pain, n/v/d/c. Objective - Vital Signs/Intake and Output Vital Signs (last 24 hours): Temp Pulse Resp BP Pulse Ox 98.9 F 80 30 H 133/56 L 97 08/14/18 08:27 08/15/18 06:24 08/14/18 06:00 08/15/18 06:00 08/15/18 06:24 Intake and Output: 08/15/18 08/15/18 06:59 18:59 Intake Total 360 Output Total 550 Balance -190 - Medications Medications: Current Medications Acetylcysteine (Acetylcysteine 20%) 4 ml IH BIDRESP [facility] Last Admin: 08/15/18 07:19 Dose: 4 ml Aspirin (Ecotrin) 81 mg PO DAILY [facility] Last Admin: 08/14/18 09:53 Dose: 81 mg Atorvastatin Calcium (Lipitor) 40 mg PO DIN [facility] Last Admin: 08/14/18 17:08 Dose: 40 mg Benzonatate (Tessalon Perles) 100 mg PO TID PRN PRN Reason: Cough Last Admin: 08/14/18 21:20 Dose: 100 mg Carvedilol (Coreg) 3.125 mg PO BID [facility] Last Admin: 08/14/18 17:07 Dose: 3.125 mg Clopidogrel Bisulfate (Plavix) 75 mg PO DAILY [facility] Last Admin: 08/14/18 15:42 Dose: 75 mg Diltiazem HCl (Cardizem Cd) 120 mg PO DAILY [facility] Last Admin: 08/14/18 09:54 Dose: 120 mg Docusate Sodium (Colace) 100 mg PO BID [facility] Last Admin: 08/14/18 17:08 Dose: 100 mg Heparin Sodium (Porcine) (Heparin) 5,000 units SC Q8 [facility]; Protocol Last Admin: 08/15/18 06:35 Dose: 5,000 units Dextrose (Dextrose 5% In Water 1000 Ml) 1,000 mls @ 0 mls/hr IV .Q0M PRN; Protocol PRN Reason: Hypoglycemia Protocol Ceftriaxone Sodium (Rocephin 1 Gram Ivpb) 1 gm in 100 mls @ 100 mls/hr IVPB DAILY [facility]; Protocol Last Admin: 08/14/18 09:56 Dose: 100 mls/hr Azithromycin (Zithromax 500mg In Ns) 500 mg in 250 mls @ 167 mls/hr IVPB DAILY [facility]; Protocol Last Admin: 08/14/18 15:42 Dose: 167 mls/hr Potassium Chloride (Potassium Chloride 10 Meq/100 Ml) 10 meq in 100 mls @ 50 mls/hr IVPB Q2H [facility] Stop: 08/15/18 10:59 Last Admin: 08/15/18 07:12 Dose: 50 mls/hr Insulin Human Regular (Humulin R Med) 0 units SC ACHS [facility]; Protocol Last Admin: 08/14/18 21:51 Dose: Not Given Levalbuterol HCl (Xopenex) 1.25 mg IH [id number] [facility] Last Admin: 08/15/18 07:19 Dose: 1.25 mg Losartan Potassium (Cozaar) 100 mg PO DAILY [facility] Last Admin: 08/14/18 09:54 Dose: 100 mg Pantoprazole Sodium (Protonix Ec Tab) 40 mg PO 0600 [facility] Last Admin: 08/15/18 06:36 Dose: 40 mg - Labs Labs: 08/15/18 05:20 08/15/18 05:20 APTT 45.3 Seconds (25.1-36.5) H 08/13/18 11:00 - Constitutional Appears: Non-toxic, No Acute Distress - Head Exam Head Exam: ATRAUMATIC, NORMAL INSPECTION, NORMOCEPHALIC - Eye Exam Eye Exam: EOMI, Normal appearance Pupil Exam: NORMAL ACCOMODATION - ENT Exam ENT Exam: Mucous Membranes Moist, Normal Exam - Neck Exam Neck Exam: Full ROM, Normal Inspection - Respiratory Exam Respiratory Exam: Rales, NORMAL BREATHING PATTERN. absent: Accessory Muscle Use, Rhonchi, Wheezes, Respiratory Distress, Stridor - Cardiovascular Exam Cardiovascular Exam: REGULAR RHYTHM, +S1, +S2 - GI/Abdominal Exam GI & Abdominal Exam: Soft, Normal Bowel Sounds. absent: Distended, Firm, Guarding, Rigid, Tenderness - Extremities Exam Extremities Exam: Normal Capillary Refill, Normal Inspection - Back Exam Back Exam: NORMAL INSPECTION - Neurological Exam Neurological Exam: Alert, Awake, Oriented x3 - Psychiatric Exam Psychiatric exam: Normal Affect, Normal Mood - Skin Skin Exam: Dry, Intact, Normal Color, Warm Assessment and Plan - Assessment and Plan (Free Text) Assessment: 87 year old male with past medical history of hypertension and diabetes who presented with complaint of generalized weakness and cough. He was found to have bilateral lower lobe pneumonia (L>R) on CXR and CT chest and elevated procalcitonin level, also found to have possible NSTEMI with elevated troponins and started on aspirin and statin. Heparin drip was later discontinued secondary to hemoptysis. He was transferred to ICU last night for hypoxia and hemoptysis which have improved. Cardiac cath procedure scheduled for later this morning. Plan: Hypoxia likely 2/2 acute CHF from NSTEMI--resolved - hypoxia since improved, no new episodes of hemoptysis noted - in ICU for further monitoring - IVF d/c'd - strict I&Os, daily weights. - Xopenex ren - continue to monitor CAP - CXR: lower lobe infiltrates L>R, likely atelectasis/pneumonia - Chest CT: no evidence of PE. Multifocal PNA of lower lobes. Small bilateral pleural effusions. - c/w azithromycin and rocephin NSTEMI,CHF - trop elevated - EKG showed sinus tachycardia with RBBB. inferior infarct of undetermined age. - Discontinued heparin drip due to hemoptysis - strict I&Os, daily weights - Cardio recs (Dr. 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 Amy Nevarez DO, PGY-1 <Kartik Reyes - Last Filed: 08/15/18 16:58> Objective - Vital Signs/Intake and Output Vital Signs (last 24 hours): Temp Pulse Resp BP Pulse Ox 98.2 F 86 20 133/69 100 08/15/18 16:36 08/15/18 16:29 08/15/18 13:39 08/15/18 16:00 08/15/18 16:29 Intake and Output: 08/15/18 08/15/18 06:59 18:59 Intake Total 360 Output Total 550 700 Balance -190 -700 - Medications Medications: Current Medications Acetylcysteine (Acetylcysteine 20%) 4 ml IH BIDRESP [facility] Last Admin: 08/15/18 07:19 Dose: 4 ml Aspirin (Ecotrin) 81 mg PO DAILY [facility] Last Admin: 08/15/18 09:00 Dose: 81 mg Atorvastatin Calcium (Lipitor) 40 mg PO DIN [facility] Last Admin: 08/14/18 17:08 Dose: 40 mg Benzonatate (Tessalon Perles) 100 mg PO TID PRN PRN Reason: Cough Last Admin: 08/14/18 21:20 Dose: 100 mg Carvedilol (Coreg) 3.125 mg PO BID [facility] Last Admin: 08/14/18 17:07 Dose: 3.125 mg Clopidogrel Bisulfate (Plavix) 75 mg PO DAILY [facility] Last Admin: 08/15/18 09:45 Dose: 75 mg Diltiazem HCl (Cardizem Cd) 120 mg PO DAILY [facility] Last Admin: 08/14/18 09:54 Dose: 120 mg Docusate Sodium (Colace) 100 mg PO BID [facility] Last Admin: 08/14/18 17:08 Dose: 100 mg Heparin Sodium (Porcine) (Heparin) 5,000 units SC Q8 [facility]; Protocol Last Admin: 08/15/18 06:35 Dose: 5,000 units Dextrose (Dextrose 5% In Water 1000 Ml) 1,000 mls @ 0 mls/hr IV .Q0M PRN; Protocol PRN Reason: Hypoglycemia Protocol Ceftriaxone Sodium (Rocephin 1 Gram Ivpb) 1 gm in 100 mls @ 100 mls/hr IVPB DAILY [facility]; Protocol Last Admin: 08/15/18 11:37 Dose: 100 mls/hr Azithromycin (Zithromax 500mg In Ns) 500 mg in 250 mls @ 167 mls/hr IVPB DAILY [facility]; Protocol Last Admin: 08/15/18 11:58 Dose: 167 mls/hr Insulin Human Regular (Humulin R Med) 0 units SC ACHS [facility]; Protocol Last Admin: 08/15/18 14:00 Dose: Not Given Levalbuterol HCl (Xopenex) 1.25 mg IH [id number] [facility] Last Admin: 08/15/18 13:28 Dose: 1.25 mg Losartan Potassium (Cozaar) 100 mg PO DAILY [facility] Last Admin: 08/14/18 09:54 Dose: 100 mg Pantoprazole Sodium (Protonix Ec Tab) 40 mg PO 0600 [facility] Last Admin: 08/15/18 06:36 Dose: 40 mg - Labs Labs: 08/15/18 05:20 08/15/18 14:00 APTT 45.3 Seconds (25.1-36.5) H 08/13/18 11:00 Attending/Attestation - Attestation I have personally seen and examined this patient.: Yes I have fully participated in the care of the patient.: Yes I have reviewed all pertinent clinical information, including history, physical exam and plan: Yes Notes (Text): 08/15/18 16:53 87 year old male with past medical history of hypertension and diabetes who presented with cough and generalized weakness. He was found to have bilateral lower lobe pneumonia and NSTEMI. He is on aspirin and statin. He was on heparin drip which was discontinued secondary to hemoptysis, now resolved. He was also started on iv lasix for CHF, currently on hold for cardiac cath. Patient underwent cardiac cath this morning with 2 bare metal stents placed in RCA. Patient is on aspirin and plavix. Monitor creatinine closely post cath procedure. Continue with iv antibiotics for pneumonia. Will replete and repeat potassium. PT follow up tomorrow. Kartik Reyes MD Hospitalist.
[2018-08-15 08:18] LABS: ARTERIAL BLOOD GAS HCO3 19.5 mmol/L (21-28); ARTERIAL BLOOD GAS HEMOGLOBIN 8.7 g/dL (11.7-17.4); ARTERIAL BLOOD GAS O2 CONTENT 10.9 ML/dl (15-23); ARTERIAL BLOOD GAS O2 SAT 90.9 % (95-98); ARTERIAL BLOOD GAS PCO2 28 mm/Hg (35-45); ARTERIAL BLOOD GAS PH 7.45 (7.35-7.45); ARTERIAL BLOOD GAS TCO2 20.4 mmol.L (22-28)
[2018-08-15] MEDS ORDERED: Lidocaine 2% Inj (20ml) ONE (09:53)
[2018-08-15] MEDS ORDERED: Iodixanol 320 MG/ML 200 ML BOTTLE IV ONE (09:53)
[2018-08-15] MEDS ORDERED: Midazolam 2 MG/2 ML VIAL ONE (10:11)
[2018-08-15] MEDS ORDERED: Potassium Chloride 20 mEq ER Tab PO SCH (10:30)
[2018-08-15] MEDS ORDERED: Sodium Chloride 0.9% 1,000 ML IV SCH (11:15)
[2018-08-15] MEDS: cefTRIAXone 1 gm 1 GM/100 ML BAG IVPB SCH (11:37)
[2018-08-15] MEDS: Insulin Reg-MEDIUM-Coverage SC SCH ×4 (11:45→22:00)
--- NOTE | 2018-08-15 11:45 | CARDCATH ---
PROCEDURE DATE: 08/15/2018 CARDIAC CATH AND PTCA HISTORY: The patient is a 87-year-old male, who presents with a non-STEMI and unstable angina. He suffers from peripheral vascular disease, pneumoniae, had an episode of hemoptysis. Because of his non-STEMI, cardiac catheterization was recommended. PROCEDURE: Left heart catheterization with coronary arteriography, left ventriculogram, followed by PTCA and stent, 2 lesions in the RCA. The right femoral artery was cannulated with a 6-Bahraini sheath that was exchanged with 7-Bahraini sheath. There were no complications. I performed moderate sedation, which included the presence of an independent trained observer that assisted in monitoring the patient's level of consciousness and physiologic status. After administration of Versed and fentanyl, my intra service time was 30 minutes. The findings on catheterization revealed a left ventricle that was mildly hypokinetic with segmental wall motion abnormalities of the apex. Overall ejection fraction is between 40 and 45%. His coronary anatomy revealed a right dominant circulation. At the ostium of the RCA, there was a 99% stenosis noted. In the proximal portion of the RCA, there was a 90% stenosis noted. His left main artery was free of significant disease. The LAD was a long and tortuous vessel, which revealed 80% stenosis at the takeoff of the first diagonal vessel. This was followed by an 80-90% stenosis in the midportion of the LAD in a tandem lesion. The circumflex artery and obtuse marginal branches revealed diffuse atherosclerosis without critical lesions. The patient was started on intravenous Angiomax on the fluoroscopic guide, the right femoral sheath was exchanged to a 7-Bahraini sheath. The guiding catheter was placed in the ostium of the RCA. An 0.04 ATW wire was used to cross the 2 lesions in the RCA. Predilatation was performed with a 2 balloon at 16 atmospheres of pressure. This was followed by implantation of a 3.5 x 12 mm bare-metal stent in the proximal RCA lesion. This was followed by implantation of a 4 x 9 mm bare-metal stent and post dilated with a 4 balloon. Repeat coronary arteriography revealed an excellent result in the RCA with no residual stenosis and FABRIZIO 3 flow. The LAD lesion was not manipulated due to his baseline renal insufficiency. Bare-metal stents were utilized because of the patient's recent hemoptysis. Angio-Seal was used to close the femoral artery site. The patient tolerated the procedure well. In summary, the procedure was successful PTCA and stent of two critical lesions in the RCA using bare-metal stents due to the recent history of hemoptysis. LV function revealed an EF of 40-45%. 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 Given these findings, we will bring the patient back once we are confident that his renal insufficiency was not affected by his present catheterization. Tam Avila MD
[2018-08-15] MEDS: Azithromycin 500MG/NS 250ml 500 MG/250 ML BAG IVPB SCH (11:58)
--- NOTE | 2018-08-15 12:44 | CARD ---
APPROVED REPORT Date of service: 08/15/2018 EKG Measurement Heart [id number] <Conclusion> Normal sinus rhythm Right bundle branch block Marked T wave abnormality, consider anterolateral ischemia Abnormal ECG
--- NOTE | 2018-08-15 13:07 | CP.CCUPN ---
CCU Subjective - Physician Review Subjective (Free Text): CRITICAL CARE PROGRESS NOTE FOR DR. REENA Campbell PGY-1 Pt seen and examined at bedside this am. He is s/p cardiac cath. He appear somewhat confused after the procedure however he is AxO x 3. He is currently on BiPAP at 12/6/60%. He denies 12 point ROS CCU Objective - Vital Signs / Intake & Output Vital Signs (Last 4 hours): Vital Signs Pulse Pulse Ox 08/15/18 10:00 112 H 08/15/18 09:19 112 H 08/15/18 09:18 91 H 90 L 08/15/18 09:17 86 98 08/15/18 09:16 80 93 L 08/15/18 09:15 81 92 L 08/15/18 09:14 81 92 L 08/15/18 09:13 82 91 L 08/15/18 09:12 86 90 L 08/15/18 09:11 88 90 L 08/15/18 09:10 86 90 L 08/15/18 09:09 84 93 L 08/15/18 09:08 82 92 L 08/15/18 09:07 81 91 L 08/15/18 09:06 82 90 L 08/15/18 09:05 82 93 L 08/15/18 09:04 82 92 L 08/15/18 09:03 82 92 L 08/15/18 09:02 83 92 L Intake and Output (Last 8hrs): Intake & Output 08/14/18 08/15/18 08/15/18 22:59 06:59 14:59 Intake Total 1050 360 Output Total 1200 550 Balance -150 -190 Weight 59.421 kg Intake: IV 350 Right Forearm 350 Oral 700 360 Output: Urine 1200 550 Urine, Voided 1200 550 Other: # Bowel Movements 0 - Physical Exam Head: Positive for: Atraumatic, Normocephalic Pupils: Positive for: PERRL Extroacular Muscles: Positive for: EOMI Conjunctiva: Positive for: Normal Mouth: Positive for: Moist Mucous Membranes Neck: Positive for: Normal Range of Motion Respiratory/Chest: Positive for: Respiratory Distress, Other (poor respiratory effort by patient). Negative for: Accessory Muscle Use Cardiovascular: Positive for: Regular Rate and Rhythm, Normal S1, S2. Negative for: Murmurs Abdomen: Negative for: Tenderness, Distention, Peritoneal Signs Back: Positive for: Normal Inspection Upper Extremity: Positive for: Normal Inspection. Negative for: Cyanosis, Edema Lower Extremity: Positive for: Normal Inspection. Negative for: Edema Neurological: Positive for: GCS=15, CN II-XII Intact, Speech Normal Skin: Positive for: Warm, Dry, Normal Color. Negative for: Rashes Psychiatric: Positive for: Alert, Oriented x 3, Normal Insight, Normal Concentration - Medications Active Medications: Active Medications Generic Name Dose Route Start Last Admin Trade Name Freq PRN Reason Stop Dose Admin Acetylcysteine 4 ml 08/14/18 20:00 08/15/18 07:19 Acetylcysteine 20% IH 4 ml BIDRESP DENISHA Administration Aspirin 81 mg 08/12/18 10:00 08/14/18 09:53 Ecotrin PO 81 mg DAILY DENISHA Administration Atorvastatin Calcium 40 mg 08/12/18 17:00 08/14/18 17:08 Lipitor PO 40 mg DIN DENISHA Administration Benzonatate 100 mg 08/11/18 20:03 08/14/18 21:20 Tessalon Perles PO 100 mg TID PRN Administration Cough Carvedilol 3.125 mg 08/12/18 18:00 08/14/18 17:07 Coreg PO 3.125 mg BID DENISHA Administration Clopidogrel Bisulfate 75 mg 08/14/18 12:45 08/15/18 09:45 Plavix PO 75 mg DAILY DENISHA Administration Diltiazem HCl 120 mg 08/12/18 10:00 08/14/18 09:54 Cardizem Cd PO 120 mg DAILY DENISHA Administration Docusate Sodium 100 mg 08/12/18 10:00 08/14/18 17:08 Colace PO 100 mg BID DENISHA Administration Heparin Sodium (Porcine) 5,000 units 08/11/18 22:00 08/15/18 06:35 Heparin SC 5,000 units Q8 DENISHA Administration Protocol Dextrose 1,000 mls @ 0 mls/hr 08/11/18 20:03 Dextrose 5% In Water 1000 Ml IV .Q0M PRN Hypoglycemia Protocol Protocol Per Protocol Ceftriaxone Sodium 1 gm in 100 mls @ 100 mls/hr 08/12/18 10:00 08/15/18 11:37 Rocephin 1 Gram Ivpb IVPB 100 mls/hr DAILY DENISHA Administration Protocol Azithromycin 500 mg in 250 mls @ 167 mls/hr 08/12/18 10:00 08/15/18 11:58 Zithromax 500mg In Ns IVPB 167 mls/hr DAILY DENISHA Administration Protocol Sodium Chloride 1,000 mls @ 100 mls/hr 08/15/18 11:15 08/15/18 11:44 Sodium Chloride 0.9% IV 08/15/18 16:00 100 mls/hr .Q10H DENISHA Administration Insulin Human Regular 0 units 08/11/18 22:00 08/15/18 11:45 Humulin R Med SC Not Given ACHS DENISHA Protocol Levalbuterol HCl 1.25 mg 08/14/18 02:00 08/15/18 07:19 Xopenex IH 1.25 mg [id number] DENISHA Administration Losartan Potassium 100 mg 08/13/18 21:35 08/14/18 09:54 Cozaar PO 100 mg DAILY DENISHA Administration Pantoprazole Sodium 40 mg 08/12/18 06:00 08/15/18 06:36 Protonix Ec Tab PO 40 mg 0600 DENISHA Administration - Patient Studies Lab Studies: Microbiology Studies 08/13/18 20:45 MRSA Culture (Admit) - Final Nose MRSA NOT DETECTED 08/11/18 19:00 Blood Culture - Preliminary Blood NO GROWTH AFTER 3 DAYS 08/11/18 17:40 Blood Culture - Preliminary Blood NO GROWTH AFTER 3 DAYS 08/12/18 20:50 MRSA Culture (Admit) - Final Naris MRSA NOT DETECTED Lab Studies 08/15/18 08/15/18 08/15/18 Range/Units 11:33 08:10 07:37 WBC (4.5-11.0) 10^3/uL RBC (3.5-6.1) 10^6/uL Hgb (14.0-18.0) g/dL Hct (42.0-52.0) % MCV (80.0-105.0) fl MCH (25.0-35.0) pg MCHC (31.0-37.0) g/dl RDW (11.5-14.5) % Plt Count (120.0-450.0) 10^3/uL MPV (7.0-11.0) fl Gran % (50.0-68.0) % Lymph % (Auto) (22.0-35.0) % Simpson % (Auto) (1.0-6.0) % Eos % (Auto) (1.5-5.0) % Baso % (Auto) (0.0-3.0) % Gran # (1.4-6.5) Lymph # (Auto) (1.2-3.4) Simpson # (Auto) (0.1-0.6) Eos # (Auto) (0.0-0.7) Baso # (Auto) (0.0-2.0) K/mm3 pCO2 28 L (35-45) mm/Hg pO2 49.0 L (80-100) mm/Hg HCO3 19.5 L (21-28) mmol/L ABG pH 7.45 (7.35-7.45) ABG Total CO2 20.4 L (22-28) mmol.L ABG O2 Saturation 90.9 L (95-98) % ABG O2 Content 10.9 L (15-23) ML/dl ABG Base Excess -3.8 L (-2.0-3.0) mmol/L ABG Hemoglobin 8.7 L (11.7-17.4) g/dL ABG Carboxyhemoglobin 2.0 H (0.5-1.5) % POC ABG HHb (Measured) 8.9 H (0-5) % ABG Methemoglobin 0.5 (0.0-3.0) % ABG O2 Capacity 12.0 L (16-24) mL/dl Hgb O2 Saturation 88.6 L (95.0-98.0) % FiO2 44.0 % Sodium (132-148) mmol/L Potassium (3.6-5.0) mmol/L Chloride (98-107) mmol/L Carbon Dioxide (21-33) mmol/L Anion Gap (10-20) BUN (7-21) mg/dL Creatinine (0.8-1.5) mg/dl Est GFR ( Amer) Est GFR (Non-Af Amer) POC Glucose (mg/dL) 183 H 182 H (65-110) mg/dL Random Glucose (70-110) mg/dL Calcium (8.4-10.5) mg/dL Phosphorus (2.5-4.5) mg/dL Magnesium (1.7-2.2) mg/dL Total Bilirubin (0.2-1.3) mg/dL AST (17-59) U/L ALT (7-56) U/L Alkaline Phosphatase (38-126) U/L Total Protein (5.8-8.3) g/dL Albumin (3.0-4.8) g/dL Globulin gm/dL Albumin/Globulin Ratio (1.1-1.8) Mycoplasma pneumon IgG (<=0.90) Mycoplasma pneumon IgM (<770) U/mL 08/15/18 08/15/18 08/14/18 Range/Units 05:20 05:20 21:27 WBC 13.4 H (4.5-11.0) 10^3/uL RBC 3.46 L (3.5-6.1) 10^6/uL Hgb 9.3 L (14.0-18.0) g/dL Hct 27.2 L (42.0-52.0) % MCV 78.6 L (80.0-105.0) fl MCH 26.9 (25.0-35.0) pg MCHC 34.2 (31.0-37.0) g/dl RDW 15.1 H (11.5-14.5) % Plt Count 224 (120.0-450.0) 10^3/uL MPV 8.8 (7.0-11.0) fl Gran % 79.1 H (50.0-68.0) % Lymph % (Auto) 9.2 L (22.0-35.0) % Simpson % (Auto) 9.6 H (1.0-6.0) % Eos % (Auto) 2.0 (1.5-5.0) % Baso % (Auto) 0.1 (0.0-3.0) % Gran # 10.62 H (1.4-6.5) Lymph # (Auto) 1.2 (1.2-3.4) Simpson # (Auto) 1.3 H (0.1-0.6) Eos # (Auto) 0.3 (0.0-0.7) Baso # (Auto) 0.02 (0.0-2.0) K/mm3 pCO2 (35-45) mm/Hg pO2 (80-100) mm/Hg HCO3 (21-28) mmol/L ABG pH (7.35-7.45) ABG Total CO2 (22-28) mmol.L ABG O2 Saturation (95-98) % ABG O2 Content (15-23) ML/dl ABG Base Excess (-2.0-3.0) mmol/L ABG Hemoglobin (11.7-17.4) g/dL ABG Carboxyhemoglobin (0.5-1.5) % POC ABG HHb (Measured) (0-5) % ABG Methemoglobin (0.0-3.0) % ABG O2 Capacity (16-24) mL/dl Hgb O2 Saturation (95.0-98.0) % FiO2 % Sodium 138 (132-148) mmol/L Potassium 2.9 L* (3.6-5.0) mmol/L Chloride 104 (98-107) mmol/L Carbon Dioxide 24 (21-33) mmol/L Anion Gap 13 (10-20) BUN 25 H (7-21) mg/dL Creatinine 1.5 (0.8-1.5) mg/dl Est GFR ( Amer) 54 Est GFR (Non-Af Amer) 44 POC Glucose (mg/dL) 198 H (65-110) mg/dL Random Glucose 192 H (70-110) mg/dL Calcium 8.2 L (8.4-10.5) mg/dL Phosphorus 2.2 L (2.5-4.5) mg/dL Magnesium 1.7 (1.7-2.2) mg/dL Total Bilirubin 0.4 (0.2-1.3) mg/dL AST 42 (17-59) U/L ALT 35 (7-56) U/L Alkaline Phosphatase 99 (38-126) U/L Total Protein 6.4 (5.8-8.3) g/dL Albumin 3.0 (3.0-4.8) g/dL Globulin 3.5 gm/dL Albumin/Globulin Ratio 0.9 L (1.1-1.8) Mycoplasma pneumon IgG (<=0.90) Mycoplasma pneumon IgM (<770) U/mL 08/14/18 08/14/18 08/14/18 Range/Units 16:18 11:19 07:57 WBC (4.5-11.0) 10^3/uL RBC (3.5-6.1) 10^6/uL Hgb (14.0-18.0) g/dL Hct (42.0-52.0) % MCV (80.0-105.0) fl MCH (25.0-35.0) pg MCHC (31.0-37.0) g/dl RDW (11.5-14.5) % Plt Count (120.0-450.0) 10^3/uL MPV (7.0-11.0) fl Gran % (50.0-68.0) % Lymph % (Auto) (22.0-35.0) % Simpson % (Auto) (1.0-6.0) % Eos % (Auto) (1.5-5.0) % Baso % (Auto) (0.0-3.0) % Gran # (1.4-6.5) Lymph # (Auto) (1.2-3.4) Simpson # (Auto) (0.1-0.6) Eos # (Auto) (0.0-0.7) Baso # (Auto) (0.0-2.0) K/mm3 pCO2 (35-45) mm/Hg pO2 (80-100) mm/Hg HCO3 (21-28) mmol/L ABG pH (7.35-7.45) ABG Total CO2 (22-28) mmol.L ABG O2 Saturation (95-98) % ABG O2 Content (15-23) ML/dl ABG Base Excess (-2.0-3.0) mmol/L ABG Hemoglobin (11.7-17.4) g/dL ABG Carboxyhemoglobin (0.5-1.5) % POC ABG HHb (Measured) (0-5) % ABG Methemoglobin (0.0-3.0) % ABG O2 Capacity (16-24) mL/dl Hgb O2 Saturation (95.0-98.0) % FiO2 % Sodium (132-148) mmol/L Potassium (3.6-5.0) mmol/L Chloride (98-107) mmol/L Carbon Dioxide (21-33) mmol/L Anion Gap (10-20) BUN (7-21) mg/dL Creatinine (0.8-1.5) mg/dl Est GFR ( Amer) Est GFR (Non-Af Amer) POC Glucose (mg/dL) 267 H 230 H 226 H (65-110) mg/dL Random Glucose (70-110) mg/dL Calcium (8.4-10.5) mg/dL Phosphorus (2.5-4.5) mg/dL Magnesium (1.7-2.2) mg/dL Total Bilirubin (0.2-1.3) mg/dL AST (17-59) U/L ALT (7-56) U/L Alkaline Phosphatase (38-126) U/L Total Protein (5.8-8.3) g/dL Albumin (3.0-4.8) g/dL Globulin gm/dL Albumin/Globulin Ratio (1.1-1.8) Mycoplasma pneumon IgG (<=0.90) Mycoplasma pneumon IgM (<770) U/mL 08/13/18 08/13/18 08/13/18 Range/Units 22:08 16:09 11:07 WBC (4.5-11.0) 10^3/uL RBC (3.5-6.1) 10^6/uL Hgb (14.0-18.0) g/dL Hct (42.0-52.0) % MCV (80.0-105.0) fl MCH (25.0-35.0) pg MCHC (31.0-37.0) g/dl RDW (11.5-14.5) % Plt Count (120.0-450.0) 10^3/uL MPV (7.0-11.0) fl Gran % (50.0-68.0) % Lymph % (Auto) (22.0-35.0) % Simpson % (Auto) (1.0-6.0) % Eos % (Auto) (1.5-5.0) % Baso % (Auto) (0.0-3.0) % Gran # (1.4-6.5) Lymph # (Auto) (1.2-3.4) Simpson # (Auto) (0.1-0.6) Eos # (Auto) (0.0-0.7) Baso # (Auto) (0.0-2.0) K/mm3 pCO2 (35-45) mm/Hg pO2 (80-100) mm/Hg HCO3 (21-28) mmol/L ABG pH (7.35-7.45) ABG Total CO2 (22-28) mmol.L ABG O2 Saturation (95-98) % ABG O2 Content (15-23) ML/dl ABG Base Excess (-2.0-3.0) mmol/L ABG Hemoglobin (11.7-17.4) g/dL ABG Carboxyhemoglobin (0.5-1.5) % POC ABG HHb (Measured) (0-5) % ABG Methemoglobin (0.0-3.0) % ABG O2 Capacity (16-24) mL/dl Hgb O2 Saturation (95.0-98.0) % FiO2 % Sodium (132-148) mmol/L Potassium (3.6-5.0) mmol/L Chloride (98-107) mmol/L Carbon Dioxide (21-33) mmol/L Anion Gap (10-20) BUN (7-21) mg/dL Creatinine (0.8-1.5) mg/dl Est GFR ( Amer) Est GFR (Non-Af Amer) POC Glucose (mg/dL) 228 H 251 H 192 H (65-110) mg/dL Random Glucose (70-110) mg/dL Calcium (8.4-10.5) mg/dL Phosphorus (2.5-4.5) mg/dL Magnesium (1.7-2.2) mg/dL Total Bilirubin (0.2-1.3) mg/dL AST (17-59) U/L ALT (7-56) U/L Alkaline Phosphatase (38-126) U/L Total Protein (5.8-8.3) g/dL Albumin (3.0-4.8) g/dL Globulin gm/dL Albumin/Globulin Ratio (1.1-1.8) Mycoplasma pneumon IgG (<=0.90) Mycoplasma pneumon IgM (<770) U/mL 08/13/18 08/11/18 Range/Units 07:58 21:00 WBC (4.5-11.0) 10^3/uL RBC (3.5-6.1) 10^6/uL Hgb (14.0-18.0) g/dL Hct (42.0-52.0) % MCV (80.0-105.0) fl MCH (25.0-35.0) pg MCHC (31.0-37.0) g/dl RDW (11.5-14.5) % Plt Count (120.0-450.0) 10^3/uL MPV (7.0-11.0) fl Gran % (50.0-68.0) % Lymph % (Auto) (22.0-35.0) % Simpson % (Auto) (1.0-6.0) % Eos % (Auto) (1.5-5.0) % Baso % (Auto) (0.0-3.0) % Gran # (1.4-6.5) Lymph # (Auto) (1.2-3.4) Simpson # (Auto) (0.1-0.6) Eos # (Auto) (0.0-0.7) Baso # (Auto) (0.0-2.0) K/mm3 pCO2 (35-45) mm/Hg pO2 (80-100) mm/Hg HCO3 (21-28) mmol/L ABG pH (7.35-7.45) ABG Total CO2 (22-28) mmol.L ABG O2 Saturation (95-98) % ABG O2 Content (15-23) ML/dl ABG Base Excess (-2.0-3.0) mmol/L ABG Hemoglobin (11.7-17.4) g/dL ABG Carboxyhemoglobin (0.5-1.5) % POC ABG HHb (Measured) (0-5) % ABG Methemoglobin (0.0-3.0) % ABG O2 Capacity (16-24) mL/dl Hgb O2 Saturation (95.0-98.0) % FiO2 % Sodium (132-148) mmol/L Potassium (3.6-5.0) mmol/L Chloride (98-107) mmol/L Carbon Dioxide (21-33) mmol/L Anion Gap (10-20) BUN (7-21) mg/dL Creatinine (0.8-1.5) mg/dl Est GFR ( Amer) Est GFR (Non-Af Amer) POC Glucose (mg/dL) 151 H (65-110) mg/dL Random Glucose (70-110) mg/dL Calcium (8.4-10.5) mg/dL Phosphorus (2.5-4.5) mg/dL Magnesium (1.7-2.2) mg/dL Total Bilirubin (0.2-1.3) mg/dL AST (17-59) U/L ALT (7-56) U/L Alkaline Phosphatase (38-126) U/L Total Protein (5.8-8.3) g/dL Albumin (3.0-4.8) g/dL Globulin gm/dL Albumin/Globulin Ratio (1.1-1.8) Mycoplasma pneumon IgG 1.52 H (<=0.90) Mycoplasma pneumon IgM 7 (<770) U/mL Laboratory Results - last 24 hr 08/11/18 08/13/18 08/13/18 21:00 07:58 11:07 WBC RBC Hgb Hct MCV MCH MCHC RDW Plt Count MPV Gran % Lymph % (Auto) Simpson % (Auto) Eos % (Auto) Baso % (Auto) Gran # Lymph # (Auto) Simpson # (Auto) Eos # (Auto) Baso # (Auto) pCO2 pO2 HCO3 ABG pH ABG Total CO2 ABG O2 Saturation ABG O2 Content ABG Base Excess ABG Hemoglobin ABG Carboxyhemoglobin POC ABG HHb (Measured) ABG Methemoglobin ABG O2 Capacity Hgb O2 Saturation FiO2 Sodium Potassium Chloride Carbon Dioxide Anion Gap BUN Creatinine Est GFR ( Amer) Est GFR (Non-Af Amer) POC Glucose (mg/dL) 151 H 192 H Random Glucose Calcium Phosphorus Magnesium Total Bilirubin AST ALT Alkaline Phosphatase Total Protein Albumin Globulin Albumin/Globulin Ratio Mycoplasma pneumon IgG 1.52 H Mycoplasma pneumon IgM 7 08/13/18 08/13/18 08/14/18 16:09 22:08 07:57 WBC RBC Hgb Hct MCV MCH MCHC RDW Plt Count MPV Gran % Lymph % (Auto) Simpson % (Auto) Eos % (Auto) Baso % (Auto) Gran # Lymph # (Auto) Simpson # (Auto) Eos # (Auto) Baso # (Auto) pCO2 pO2 HCO3 ABG pH ABG Total CO2 ABG O2 Saturation ABG O2 Content ABG Base Excess ABG Hemoglobin ABG Carboxyhemoglobin POC ABG HHb (Measured) ABG Methemoglobin ABG O2 Capacity Hgb O2 Saturation FiO2 Sodium Potassium Chloride Carbon Dioxide Anion Gap BUN Creatinine Est GFR ( Amer) Est GFR (Non-Af Amer) POC Glucose (mg/dL) 251 H 228 H 226 H Random Glucose Calcium Phosphorus Magnesium Total Bilirubin AST ALT Alkaline Phosphatase Total Protein Albumin Globulin Albumin/Globulin Ratio Mycoplasma pneumon IgG Mycoplasma pneumon IgM 08/14/18 08/14/18 08/14/18 11:19 16:18 21:27 WBC RBC Hgb Hct MCV MCH MCHC RDW Plt Count MPV Gran % Lymph % (Auto) Simpson % (Auto) Eos % (Auto) Baso % (Auto) Gran # Lymph # (Auto) Simpson # (Auto) Eos # (Auto) Baso # (Auto) pCO2 pO2 HCO3 ABG pH ABG Total CO2 ABG O2 Saturation ABG O2 Content ABG Base Excess ABG Hemoglobin ABG Carboxyhemoglobin POC ABG HHb (Measured) ABG Methemoglobin ABG O2 Capacity Hgb O2 Saturation FiO2 Sodium Potassium Chloride Carbon Dioxide Anion Gap BUN Creatinine Est GFR ( Amer) Est GFR (Non-Af Amer) POC Glucose (mg/dL) 230 H 267 H 198 H Random Glucose Calcium Phosphorus Magnesium Total Bilirubin AST ALT Alkaline Phosphatase Total Protein Albumin Globulin Albumin/Globulin Ratio Mycoplasma pneumon IgG Mycoplasma pneumon IgM 08/15/18 08/15/18 08/15/18 05:20 05:20 07:37 WBC 13.4 H RBC 3.46 L Hgb 9.3 L Hct 27.2 L MCV 78.6 L MCH 26.9 MCHC 34.2 RDW 15.1 H Plt Count 224 MPV 8.8 Gran % 79.1 H Lymph % (Auto) 9.2 L Simpson % (Auto) 9.6 H Eos % (Auto) 2.0 Baso % (Auto) 0.1 Gran # 10.62 H Lymph # (Auto) 1.2 Simpson # (Auto) 1.3 H Eos # (Auto) 0.3 Baso # (Auto) 0.02 pCO2 pO2 HCO3 ABG pH ABG Total CO2 ABG O2 Saturation ABG O2 Content ABG Base Excess ABG Hemoglobin ABG Carboxyhemoglobin POC ABG HHb (Measured) ABG Methemoglobin ABG O2 Capacity Hgb O2 Saturation FiO2 Sodium 138 Potassium 2.9 L* Chloride 104 Carbon Dioxide 24 Anion Gap 13 BUN 25 H Creatinine 1.5 Est GFR ( Amer) 54 Est GFR (Non-Af Amer) 44 POC Glucose (mg/dL) 182 H Random Glucose 192 H Calcium 8.2 L Phosphorus 2.2 L Magnesium 1.7 Total Bilirubin 0.4 AST 42 ALT 35 Alkaline Phosphatase 99 Total Protein 6.4 Albumin 3.0 Globulin 3.5 Albumin/Globulin Ratio 0.9 L Mycoplasma pneumon IgG Mycoplasma pneumon IgM 08/15/18 08/15/18 08:10 11:33 WBC RBC Hgb Hct MCV MCH MCHC RDW Plt Count MPV Gran % Lymph % (Auto) Simpson % (Auto) Eos % (Auto) Baso % (Auto) Gran # Lymph # (Auto) Simpson # (Auto) Eos # (Auto) Baso # (Auto) pCO2 28 L pO2 49.0 L HCO3 19.5 L ABG pH 7.45 ABG Total CO2 20.4 L ABG O2 Saturation 90.9 L ABG O2 Content 10.9 L ABG Base Excess -3.8 L ABG Hemoglobin 8.7 L ABG Carboxyhemoglobin 2.0 H POC ABG HHb (Measured) 8.9 H ABG Methemoglobin 0.5 ABG O2 Capacity 12.0 L Hgb O2 Saturation 88.6 L FiO2 44.0 Sodium Potassium Chloride Carbon Dioxide Anion Gap BUN Creatinine Est GFR ( Amer) Est GFR (Non-Af Amer) POC Glucose (mg/dL) 183 H Random Glucose Calcium Phosphorus Magnesium Total Bilirubin AST ALT Alkaline Phosphatase Total Protein Albumin Globulin Albumin/Globulin Ratio Mycoplasma pneumon IgG Mycoplasma pneumon IgM EKG/Cardiology Studies: Cardiology / EKG Studies 08/15/18 11:13 ELECTROCARDIOGRAM Urgent Comment: 12 lead EKG upon arrival in unit Reason For Exam: post ptca 08/16/18 11:15 ELECTROCARDIOGRAM DAILY Comment: Reason For Exam: chest pain Fingerstick Blood Sugar Results: 198 Review of Systems - Review of Systems Review of Systems: per HPI Critical Care Progress Note - Nutrition Nutrition: Nutrition Category Date Time Status Heart Healthy Diet [DIET] Diets 08/14/18 Lunch Active Assessment/Plan - Assessment and Plan (Free Text) Assessment: 87 year old male with PMH DM, HTN, HLD, initially admitted for bilateral CAP, developed NSTEMI. Pt admitted to ICU for hypoxic respiratory failure likely 2/2 cardiogenic pulmonary edema. He is s/p cardiac cath with 2 RCA stents Plan: Neuro: post cardiac cath, confused but AxO x 3 re-orient frequently Continue to monitor Cardiovascular: NSTEMI s/p cardiac cath successful PTCA & stent of 2 critical lesions in the RCA using bare-metal stents due to recent history of hemoptysis maintain MAP >65 Aspirin Atorvastatin carvedilol plavix cardizem 120mg po losartan on hold I/Os Daily weights f/u cardio recs Pulm: Hypoxic respiratory failure ABG reveals hypoxia Maintain SpO2 >90% BiPAP @12/6/60% Trend ABG CAP levalbuterol azithromycin/ceftriaxone acetylcysteine GI: colace /Renal Replace lytes prn ID: CAP azithromycin/ceftriaxone Endo: Maintain euglycemia DVT/GI: Hep SC/protonix Case seen, examined and discussed with attending physician, Dr. Campos
[2018-08-15 14:49] LABS: BLOOD UREA NITROGEN 24 mg/dL (7-21); CALCIUM 8.1 mg/dL (8.4-10.5); GFR NON-AFRICAN AMERICAN 52
--- NOTE | 2018-08-15 15:26 | PN ---
DATE: 08/15/2018 SUBJECTIVE: The patient is seen and examined at bedside. He is alert, awake, and oriented. He is comfortable. He is not in respiratory or otherwise distress. PHYSICAL EXAMINATION: VITAL SIGNS: Heart rate 85, oxygen saturation 90% on 6 liters nasal cannula, blood pressure 128/58. HEENT: Head and neck atraumatic. LUNGS: Few rhonchi bilaterally. HEART: Regular rate and rhythm. S1 and S2 normal. ABDOMEN: Soft, nontender, nondistended. MUSCULOSKELETAL: No C/C/E. NEURO: The patient moves all extremities spontaneously. SKIN: Moist. PSYCH: The patient is alert, awake and oriented. LABORATORY DATA: WBC 13.4, down from 15.4; hemoglobin 9.3 (relatively stable); platelet count 224. Sodium 138; potassium 2.9 (the patient is getting aggressive supplementation); chloride 104; carbon dioxide 24; BUN 25; creatinine 1.5, down from 1.6. The patient has urinary Legionella pneumophila antigen negative. Streptococcus pneumoniae antigen in the urine negative. Influenza serology pending. IMAGING: Chest x-ray showed subsegmental atelectasis. MEDICATIONS: Acetylcysteine inhaled, aspirin, Lipitor, Coreg, Plavix, Cardizem 120 mg p.o. daily, Colace, heparin subcu for DVT prophylaxis, regular insulin sliding scale medium protocol, Xopenex every 6 hours, Cozaar, Protonix, potassium supplementation, ceftriaxone, and azithromycin. ASSESSMENT AND PLAN: This is an 87-year-old gentleman, who presented with community-acquired pneumonia in the setting of underlying chronic obstructive pulmonary disease, complicated by sepsis with septic cardiomyopathy vs primary coronary event. The patient was found to have severe left ventricular systolic dysfunction and was treated accordingly with beta-blockers, TYRONE inhibitors for afterload reduction as well as aspirin and Lipitor. Meanwhile, the patient was started on ceftriaxone, azithromycin, bronchodilators and steroid taper. The patient does use BiPAP at night; however, currently he is very comfortable, not in respiratory distress. Even though his gas exchange appears to be borderline, it looks like it is more chronic than acute. I will repeat ABG to correlate oxygen saturation on the monitor with pO2 and O2 sat on blood gas. Once his potassium is supplemented, we will continue with diuresis to maintain euvolemia. We will continue with deep venous thrombosis and gastrointestinal prophylaxes. Maintain blood glucose within 140-180 range according to NICE-SUGAR trial. Some preliminary data suggests that getting BG under stricter control (110-140) in cardiac patient may be associated with better outcomes then more liberal BG control. That is, of course, if hypoglycemia is avoided. We will try to avoid hyperchloremia and nephrotoxic medication and we will try to maintain mean arterial pressure more than 65. ccm time 40 min Carlton Campos MD [id number]
[2018-08-15] MEDS: diltiaZEM 120 mg/24 Hours CD Cap PO SCH (18:14)
[2018-08-16] MEDS: Levalbuterol 1.25 MG/3 ML Inhal Soln UD IH SCH ×4 (01:18→19:45)
[2018-08-16 05:38] LABS: BASO # 0.02 K/mm3 (0.0-2.0); BASO % 0.2 % (0.0-3.0); EOS # 0.4 (0.0-0.7); EOS % 3.6 % (1.5-5.0); GRAN # 8.43 (1.4-6.5); GRAN % 73.7 % (50.0-68.0); HEMOGLOBIN 9.8 g/dL (14.0-18.0); LYMPH # 1.2 (1.2-3.4); LYMPH % 10.1 % (22.0-35.0); MEAN CELL VOLUME 78.8 fl (80.0-105.0); MEAN CORPUSCULAR HEMOGLOBIN 25.9 pg (25.0-35.0); MEAN CORPUSCULAR HGB CONC 32.9 g/dl (31.0-37.0); MEAN PLATELET VOLUME 8.9 fl (7.0-11.0); MONO # 1.4 (0.1-0.6); MONO % 12.4 % (1.0-6.0); RBC 3.78 10^6/uL (3.5-6.1); RED CELL DISTRIBUTION WIDTH 15.5 % (11.5-14.5); WHITE BLOOD COUNT 11.4 10^3/uL (4.5-11.0)
[2018-08-16] MEDS: Pantoprazole 40 mg EC Tab PO SCH (06:46)
[2018-08-16 06:52] LABS: ALB/GLOB RATIO 0.8 (1.1-1.8); ALBUMIN 3.1 g/dL (3.0-4.8); ALT/SGPT 43 U/L (7-56); AST/SGOT 63 U/L (17-59); BLOOD UREA NITROGEN 25 mg/dL (7-21); CALCIUM 8.4 mg/dL (8.4-10.5); GFR NON-AFRICAN AMERICAN 57
[2018-08-16] MEDS: Acetylcysteine 20% Inhal Soln (4ml) IH SCH ×2 (07:32→19:45)
[2018-08-16] MEDS: Insulin Reg-MEDIUM-Coverage SC SCH ×4 (08:00→22:10)
--- NOTE | 2018-08-16 08:57 | CP.CCUPN ---
<Milton Campbell - Last Filed: 08/16/18 10:22> CCU Subjective - Physician Review Subjective (Free Text): CRITICAL CARE PROGRESS NOTE FOR DR. VIKI Campbell PGY-1 Pt seen and examined at bedside this am. No acute nursing events overnight. He reports no acute complaints this am. He is tolerating his diet. He had some congestion this am, which improved with acetylcysteine treatment. He reports no events of hemoptysis. Denies complaints of back pain, discomfort in R groin region. He denies chest pain, palpitations, SOB and other 12 point ROS. CCU Objective - Vital Signs / Intake & Output Vital Signs (Last 4 hours): Vital Signs Pulse Resp BP Pulse Ox 08/16/18 08:30 89 47 H 91 L 08/16/18 08:20 86 37 H 90 L 08/16/18 08:15 89 33 H 08/16/18 08:10 82 32 H 90 L 08/16/18 08:00 85 30 H 130/59 L 89 L 08/16/18 07:50 81 17 98 08/16/18 07:40 83 38 H 92 L 08/16/18 07:30 78 42 H 91 L 08/16/18 07:20 84 33 H 88 L 08/16/18 07:10 82 87 L 08/16/18 07:00 85 27 H 132/58 L 87 L 08/16/18 06:50 86 90 L 08/16/18 06:40 84 38 H 88 L 08/16/18 06:30 83 14 87 L 08/16/18 06:20 81 28 H 96 08/16/18 06:10 76 36 H 100 08/16/18 06:00 80 29 H 143/99 H 99 08/16/18 05:50 76 36 H 100 08/16/18 05:40 77 42 H 100 08/16/18 05:30 76 32 H 100 08/16/18 05:20 79 26 H 100 08/16/18 05:10 77 33 H 100 08/16/18 05:00 79 31 H 129/63 98 Intake and Output (Last 8hrs): Intake & Output 08/15/18 08/16/18 08/16/18 22:59 06:59 14:59 Intake Total 360 740 Output Total 550 700 Balance -190 40 Intake: IV 500 Left Forearm 0 Right Antecubital 500 Right Forearm 0 Oral 360 240 Output: Urine 550 700 Urine, Voided 550 700 Other: # Bowel Movements 0 0 - Physical Exam Head: Positive for: Atraumatic, Normocephalic Pupils: Positive for: PERRL Extroacular Muscles: Positive for: EOMI Conjunctiva: Positive for: Normal Mouth: Positive for: Moist Mucous Membranes Neck: Positive for: Normal Range of Motion Respiratory/Chest: Positive for: Respiratory Distress, Other (poor respiratory effort by patient). Negative for: Accessory Muscle Use Cardiovascular: Positive for: Regular Rate and Rhythm, Normal S1, S2. Negative for: Murmurs Abdomen: Negative for: Tenderness, Distention, Peritoneal Signs Back: Positive for: Normal Inspection Upper Extremity: Positive for: Normal Inspection. Negative for: Cyanosis, Edema Lower Extremity: Positive for: Normal Inspection, Other (Dressing clean/dry/intact in R groin region. No hematoma appreciated. ). Negative for: Edema Neurological: Positive for: GCS=15, CN II-XII Intact, Speech Normal Skin: Positive for: Warm, Dry, Normal Color. Negative for: Rashes Psychiatric: Positive for: Alert, Oriented x 3, Normal Insight, Normal Concentration - Medications Active Medications: Active Medications Generic Name Dose Route Start Last Admin Trade Name Freq PRN Reason Stop Dose Admin Acetylcysteine 4 ml 08/14/18 20:00 08/16/18 07:32 Acetylcysteine 20% IH 4 ml BIDRESP DENISHA Administration Aspirin 81 mg 08/12/18 10:00 08/15/18 09:00 Ecotrin PO 81 mg DAILY DENISHA Administration Atorvastatin Calcium 40 mg 08/12/18 17:00 08/15/18 18:11 Lipitor PO 40 mg DIN DENISHA Administration Benzonatate 100 mg 08/11/18 20:03 08/16/18 06:46 Tessalon Perles PO 100 mg TID PRN Administration Cough Carvedilol 3.125 mg 08/12/18 18:00 08/15/18 18:11 Coreg PO 3.125 mg BID DENISHA Administration Clopidogrel Bisulfate 75 mg 08/14/18 12:45 08/15/18 09:45 Plavix PO 75 mg DAILY DENISHA Administration Diltiazem HCl 120 mg 08/12/18 10:00 08/15/18 18:14 Cardizem Cd PO 120 mg DAILY DENISHA Administration Docusate Sodium 100 mg 08/12/18 10:00 08/15/18 18:11 Colace PO 100 mg BID DENISHA Administration Heparin Sodium (Porcine) 5,000 units 08/11/18 22:00 08/16/18 06:45 Heparin SC 5,000 units Q8 DENISHA Administration Protocol Dextrose 1,000 mls @ 0 mls/hr 08/11/18 20:03 Dextrose 5% In Water 1000 Ml IV .Q0M PRN Hypoglycemia Protocol Protocol Per Protocol Ceftriaxone Sodium 1 gm in 100 mls @ 100 mls/hr 08/12/18 10:00 08/15/18 11:37 Rocephin 1 Gram Ivpb IVPB 100 mls/hr DAILY DENISHA Administration Protocol Azithromycin 500 mg in 250 mls @ 167 mls/hr 08/12/18 10:00 08/15/18 11:58 Zithromax 500mg In Ns IVPB 167 mls/hr DAILY DENISHA Administration Protocol Insulin Human Regular 0 units 08/11/18 22:00 08/15/18 22:00 Humulin R Med SC Not Given ACHS DENISHA Protocol Levalbuterol HCl 1.25 mg 08/14/18 02:00 08/16/18 07:32 Xopenex IH 1.25 mg [id number] DENISHA Administration Losartan Potassium 100 mg 08/13/18 21:35 08/14/18 09:54 Cozaar PO 100 mg DAILY DENISHA Administration Pantoprazole Sodium 40 mg 08/12/18 06:00 08/16/18 06:46 Protonix Ec Tab PO 40 mg 0600 DENISHA Administration Potassium Phos/Sodium Phos 2 pkt 08/16/18 10:00 Neutra-Phos PO BID DENISHA - Patient Studies Lab Studies: Microbiology Studies 08/11/18 19:00 Blood Culture - Preliminary Blood NO GROWTH AFTER 4 DAYS 08/11/18 17:40 Blood Culture - Preliminary Blood NO GROWTH AFTER 4 DAYS 08/13/18 20:45 MRSA Culture (Admit) - Final Nose MRSA NOT DETECTED Lab Studies 08/16/18 08/16/18 08/15/18 Range/Units 05:34 05:31 22:17 WBC 11.4 H (4.5-11.0) 10^3/uL RBC 3.78 (3.5-6.1) 10^6/uL Hgb 9.8 L (14.0-18.0) g/dL Hct 29.8 L (42.0-52.0) % MCV 78.8 L (80.0-105.0) fl MCH 25.9 (25.0-35.0) pg MCHC 32.9 (31.0-37.0) g/dl RDW 15.5 H (11.5-14.5) % Plt Count 249 (120.0-450.0) 10^3/uL MPV 8.9 (7.0-11.0) fl Gran % 73.7 H (50.0-68.0) % Lymph % (Auto) 10.1 L (22.0-35.0) % Hill % (Auto) 12.4 H (1.0-6.0) % Eos % (Auto) 3.6 (1.5-5.0) % Baso % (Auto) 0.2 (0.0-3.0) % Gran # 8.43 H (1.4-6.5) Lymph # (Auto) 1.2 (1.2-3.4) Hill # (Auto) 1.4 H (0.1-0.6) Eos # (Auto) 0.4 (0.0-0.7) Baso # (Auto) 0.02 (0.0-2.0) K/mm3 Sodium 141 (132-148) mmol/L Potassium 3.9 (3.6-5.0) mmol/L Chloride 110 H (98-107) mmol/L Carbon Dioxide 17 L (21-33) mmol/L Anion Gap 17 (10-20) BUN 25 H (7-21) mg/dL Creatinine 1.2 (0.8-1.5) mg/dl Est GFR ( Amer) > 60 Est GFR (Non-Af Amer) 57 POC Glucose (mg/dL) 137 H (65-110) mg/dL Random Glucose 162 H (70-110) mg/dL Calcium 8.4 (8.4-10.5) mg/dL Phosphorus 2.2 L (2.5-4.5) mg/dL Magnesium 1.9 (1.7-2.2) mg/dL Total Bilirubin 0.5 (0.2-1.3) mg/dL AST 63 H D (17-59) U/L ALT 43 (7-56) U/L Alkaline Phosphatase 108 (38-126) U/L Total Protein 6.7 (5.8-8.3) g/dL Albumin 3.1 (3.0-4.8) g/dL Globulin 3.6 gm/dL Albumin/Globulin Ratio 0.8 L (1.1-1.8) Influenza Type A Ab (<1:8) titer Influenza Type B Ab (<1:8) titer Mycoplasma pneumon IgG (<=0.90) Mycoplasma pneumon IgM (<770) U/mL 08/15/18 08/15/18 08/15/18 Range/Units 16:09 14:00 11:33 WBC (4.5-11.0) 10^3/uL RBC (3.5-6.1) 10^6/uL Hgb (14.0-18.0) g/dL Hct (42.0-52.0) % MCV (80.0-105.0) fl MCH (25.0-35.0) pg MCHC (31.0-37.0) g/dl RDW (11.5-14.5) % Plt Count (120.0-450.0) 10^3/uL MPV (7.0-11.0) fl Gran % (50.0-68.0) % Lymph % (Auto) (22.0-35.0) % Hill % (Auto) (1.0-6.0) % Eos % (Auto) (1.5-5.0) % Baso % (Auto) (0.0-3.0) % Gran # (1.4-6.5) Lymph # (Auto) (1.2-3.4) Hill # (Auto) (0.1-0.6) Eos # (Auto) (0.0-0.7) Baso # (Auto) (0.0-2.0) K/mm3 Sodium 137 (132-148) mmol/L Potassium 4.2 (3.6-5.0) mmol/L Chloride 108 H (98-107) mmol/L Carbon Dioxide 19 L (21-33) mmol/L Anion Gap 14 (10-20) BUN 24 H (7-21) mg/dL Creatinine 1.3 (0.8-1.5) mg/dl Est GFR ( Amer) > 60 Est GFR (Non-Af Amer) 52 POC Glucose (mg/dL) 171 H 183 H (65-110) mg/dL Random Glucose 190 H (70-110) mg/dL Calcium 8.1 L (8.4-10.5) mg/dL Phosphorus (2.5-4.5) mg/dL Magnesium (1.7-2.2) mg/dL Total Bilirubin (0.2-1.3) mg/dL AST (17-59) U/L ALT (7-56) U/L Alkaline Phosphatase (38-126) U/L Total Protein (5.8-8.3) g/dL Albumin (3.0-4.8) g/dL Globulin gm/dL Albumin/Globulin Ratio (1.1-1.8) Influenza Type A Ab (<1:8) titer Influenza Type B Ab (<1:8) titer Mycoplasma pneumon IgG (<=0.90) Mycoplasma pneumon IgM (<770) U/mL 08/15/18 08/14/18 08/14/18 Range/Units 07:37 21:27 16:18 WBC (4.5-11.0) 10^3/uL RBC (3.5-6.1) 10^6/uL Hgb (14.0-18.0) g/dL Hct (42.0-52.0) % MCV (80.0-105.0) fl MCH (25.0-35.0) pg MCHC (31.0-37.0) g/dl RDW (11.5-14.5) % Plt Count (120.0-450.0) 10^3/uL MPV (7.0-11.0) fl Gran % (50.0-68.0) % Lymph % (Auto) (22.0-35.0) % Hill % (Auto) (1.0-6.0) % Eos % (Auto) (1.5-5.0) % Baso % (Auto) (0.0-3.0) % Gran # (1.4-6.5) Lymph # (Auto) (1.2-3.4) Hill # (Auto) (0.1-0.6) Eos # (Auto) (0.0-0.7) Baso # (Auto) (0.0-2.0) K/mm3 Sodium (132-148) mmol/L Potassium (3.6-5.0) mmol/L Chloride (98-107) mmol/L Carbon Dioxide (21-33) mmol/L Anion Gap (10-20) BUN (7-21) mg/dL Creatinine (0.8-1.5) mg/dl Est GFR ( Amer) Est GFR (Non-Af Amer) POC Glucose (mg/dL) 182 H 198 H 267 H (65-110) mg/dL Random Glucose (70-110) mg/dL Calcium (8.4-10.5) mg/dL Phosphorus (2.5-4.5) mg/dL Magnesium (1.7-2.2) mg/dL Total Bilirubin (0.2-1.3) mg/dL AST (17-59) U/L ALT (7-56) U/L Alkaline Phosphatase (38-126) U/L Total Protein (5.8-8.3) g/dL Albumin (3.0-4.8) g/dL Globulin gm/dL Albumin/Globulin Ratio (1.1-1.8) Influenza Type A Ab (<1:8) titer Influenza Type B Ab (<1:8) titer Mycoplasma pneumon IgG (<=0.90) Mycoplasma pneumon IgM (<770) U/mL 08/14/18 08/14/18 08/11/18 Range/Units 11:19 07:57 21:00 WBC (4.5-11.0) 10^3/uL RBC (3.5-6.1) 10^6/uL Hgb (14.0-18.0) g/dL Hct (42.0-52.0) % MCV (80.0-105.0) fl MCH (25.0-35.0) pg MCHC (31.0-37.0) g/dl RDW (11.5-14.5) % Plt Count (120.0-450.0) 10^3/uL MPV (7.0-11.0) fl Gran % (50.0-68.0) % Lymph % (Auto) (22.0-35.0) % Hill % (Auto) (1.0-6.0) % Eos % (Auto) (1.5-5.0) % Baso % (Auto) (0.0-3.0) % Gran # (1.4-6.5) Lymph # (Auto) (1.2-3.4) Hill # (Auto) (0.1-0.6) Eos # (Auto) (0.0-0.7) Baso # (Auto) (0.0-2.0) K/mm3 Sodium (132-148) mmol/L Potassium (3.6-5.0) mmol/L Chloride (98-107) mmol/L Carbon Dioxide (21-33) mmol/L Anion Gap (10-20) BUN (7-21) mg/dL Creatinine (0.8-1.5) mg/dl Est GFR ( Amer) Est GFR (Non-Af Amer) POC Glucose (mg/dL) 230 H 226 H (65-110) mg/dL Random Glucose (70-110) mg/dL Calcium (8.4-10.5) mg/dL Phosphorus (2.5-4.5) mg/dL Magnesium (1.7-2.2) mg/dL Total Bilirubin (0.2-1.3) mg/dL AST (17-59) U/L ALT (7-56) U/L Alkaline Phosphatase (38-126) U/L Total Protein (5.8-8.3) g/dL Albumin (3.0-4.8) g/dL Globulin gm/dL Albumin/Globulin Ratio (1.1-1.8) Influenza Type A Ab 1:64 H (<1:8) titer Influenza Type B Ab 1:32 H (<1:8) titer Mycoplasma pneumon IgG 1.52 H (<=0.90) Mycoplasma pneumon IgM 7 (<770) U/mL Laboratory Results - last 24 hr 08/11/18 08/14/18 08/14/18 21:00 07:57 11:19 WBC RBC Hgb Hct MCV MCH MCHC RDW Plt Count MPV Gran % Lymph % (Auto) Hill % (Auto) Eos % (Auto) Baso % (Auto) Gran # Lymph # (Auto) Hill # (Auto) Eos # (Auto) Baso # (Auto) Sodium Potassium Chloride Carbon Dioxide Anion Gap BUN Creatinine Est GFR ( Amer) Est GFR (Non-Af Amer) POC Glucose (mg/dL) 226 H 230 H Random Glucose Calcium Phosphorus Magnesium Total Bilirubin AST ALT Alkaline Phosphatase Total Protein Albumin Globulin Albumin/Globulin Ratio Influenza Type A Ab 1:64 H Influenza Type B Ab 1:32 H Mycoplasma pneumon IgG 1.52 H Mycoplasma pneumon IgM 7 08/14/18 08/14/18 08/15/18 16:18 21:27 07:37 WBC RBC Hgb Hct MCV MCH MCHC RDW Plt Count MPV Gran % Lymph % (Auto) Hill % (Auto) Eos % (Auto) Baso % (Auto) Gran # Lymph # (Auto) Hill # (Auto) Eos # (Auto) Baso # (Auto) Sodium Potassium Chloride Carbon Dioxide Anion Gap BUN Creatinine Est GFR ( Amer) Est GFR (Non-Af Amer) POC Glucose (mg/dL) 267 H 198 H 182 H Random Glucose Calcium Phosphorus Magnesium Total Bilirubin AST ALT Alkaline Phosphatase Total Protein Albumin Globulin Albumin/Globulin Ratio Influenza Type A Ab Influenza Type B Ab Mycoplasma pneumon IgG Mycoplasma pneumon IgM 08/15/18 08/15/18 08/15/18 11:33 14:00 16:09 WBC RBC Hgb Hct MCV MCH MCHC RDW Plt Count MPV Gran % Lymph % (Auto) Hill % (Auto) Eos % (Auto) Baso % (Auto) Gran # Lymph # (Auto) Hill # (Auto) Eos # (Auto) Baso # (Auto) Sodium 137 Potassium 4.2 Chloride 108 H Carbon Dioxide 19 L Anion Gap 14 BUN 24 H Creatinine 1.3 Est GFR ( Amer) > 60 Est GFR (Non-Af Amer) 52 POC Glucose (mg/dL) 183 H 171 H Random Glucose 190 H Calcium 8.1 L Phosphorus Magnesium Total Bilirubin AST ALT Alkaline Phosphatase Total Protein Albumin Globulin Albumin/Globulin Ratio Influenza Type A Ab Influenza Type B Ab Mycoplasma pneumon IgG Mycoplasma pneumon IgM 08/15/18 08/16/18 08/16/18 22:17 05:31 05:34 WBC 11.4 H RBC 3.78 Hgb 9.8 L Hct 29.8 L MCV 78.8 L MCH 25.9 MCHC 32.9 RDW 15.5 H Plt Count 249 MPV 8.9 Gran % 73.7 H Lymph % (Auto) 10.1 L Hill % (Auto) 12.4 H Eos % (Auto) 3.6 Baso % (Auto) 0.2 Gran # 8.43 H Lymph # (Auto) 1.2 Hill # (Auto) 1.4 H Eos # (Auto) 0.4 Baso # (Auto) 0.02 Sodium 141 Potassium 3.9 Chloride 110 H Carbon Dioxide 17 L Anion Gap 17 BUN 25 H Creatinine 1.2 Est GFR ( Amer) > 60 Est GFR (Non-Af Amer) 57 POC Glucose (mg/dL) 137 H Random Glucose 162 H Calcium 8.4 Phosphorus 2.2 L Magnesium 1.9 Total Bilirubin 0.5 AST 63 H D ALT 43 Alkaline Phosphatase 108 Total Protein 6.7 Albumin 3.1 Globulin 3.6 Albumin/Globulin Ratio 0.8 L Influenza Type A Ab Influenza Type B Ab Mycoplasma pneumon IgG Mycoplasma pneumon IgM EKG/Cardiology Studies: Cardiology / EKG Studies 08/15/18 11:13 ELECTROCARDIOGRAM Urgent Comment: 12 lead EKG upon arrival in unit Reason For Exam: post ptca 08/16/18 11:15 ELECTROCARDIOGRAM DAILY Comment: Reason For Exam: chest pain Fingerstick Blood Sugar Results: 137 Review of Systems - Review of Systems Review of Systems: per HPI Critical Care Progress Note - Nutrition Nutrition: Nutrition Category Date Time Status Heart Healthy Diet [DIET] Diets 08/14/18 Lunch Active Assessment/Plan - Assessment and Plan (Free Text) Assessment: 87 year old male with PMH DM, HTN, HLD, initially admitted for bilateral CAP, developed NSTEMI. Pt admitted to ICU for hypoxic respiratory failure likely 2/2 cardiogenic pulmonary edema. He is s/p cardiac cath with 2 RCA bare-metal stents d/t recent history of hemoptysis Plan: Neuro: post cardiac cath, AxO x 3 re-orient frequently Continue to monitor Cardiovascular: NSTEMI s/p cardiac cath successful PTCA & stent of 2 critical lesions in the RCA using bare-metal stents due to recent history of hemoptysis maintain MAP >65 Aspirin Atorvastatin carvedilol plavix cardizem 120mg po losartan on hold I/Os Daily weights f/u cardio recs Pulm: Hypoxic respiratory failure ABG reveals hypoxia Maintain SpO2 >90% Current on 4L NC Trend ABG CAP levalbuterol azithromycin/ceftriaxone acetylcysteine GI: colace /Renal Replace lytes prn ID: CAP azithromycin/ceftriaxone Endo: Maintain euglycemia DVT/GI: Hep SC/protonix po Dispo: Pt has no acute complaints this am. He is doing better after cardiac cath. His vital signs are stable. His labs are stable. His physical exam is stable. He longer requires ICU care. He is stable for transfer to telemetry floor. Please re-consult as necessary. Thanks Case seen, examined and discussed with attending physician, Dr. Keating <Phi Keating - Last Filed: 08/16/18 17:50> CCU Objective - Vital Signs / Intake & Output Vital Signs (Last 4 hours): Vital Signs Pulse Resp BP Pulse Ox 08/16/18 17:40 87 08/16/18 17:30 84 36 H 08/16/18 17:20 85 08/16/18 17:10 90 37 H 08/16/18 17:00 84 40 H 125/60 08/16/18 16:50 87 20 08/16/18 16:40 85 39 H 08/16/18 16:30 79 29 H 08/16/18 16:20 81 35 H 08/16/18 16:10 81 23 08/16/18 16:02 84 122/64 08/16/18 15:50 79 46 H 90 L 08/16/18 15:40 82 30 H 88 L 08/16/18 15:30 83 41 H 85 L 08/16/18 15:20 82 36 H 89 L 08/16/18 15:10 87 28 H 88 L 08/16/18 15:00 82 33 H 120/59 L 89 L 08/16/18 14:50 92 H 39 H 87 L 08/16/18 14:40 87 31 H 87 L 08/16/18 14:30 90 37 H 91 L 08/16/18 14:22 96 H 25 H 08/16/18 14:10 92 H 34 H 08/16/18 14:00 95 H 21 131/61 Intake and Output (Last 8hrs): Intake & Output 08/16/18 08/16/18 08/16/18 06:59 14:59 22:59 Intake Total 740 Output Total 700 Balance 40 Intake: IV 500 Left Forearm 0 Right Antecubital 500 Right Forearm 0 Oral 240 Output: Urine 700 Urine, Voided 700 Other: # Bowel Movements 0 - Medications Active Medications: Active Medications Generic Name Dose Route Start Last Admin Trade Name Freq PRN Reason Stop Dose Admin Acetylcysteine 4 ml 08/14/18 20:00 08/16/18 07:32 Acetylcysteine 20% IH 4 ml BIDRESP DENISHA Administration Aspirin 81 mg 08/12/18 10:00 08/15/18 09:00 Ecotrin PO 81 mg DAILY DENISHA Administration Atorvastatin Calcium 40 mg 08/12/18 17:00 08/15/18 18:11 Lipitor PO 40 mg DIN DENISHA Administration Benzonatate 100 mg 08/11/18 20:03 08/16/18 06:46 Tessalon Perles PO 100 mg TID PRN Administration Cough Carvedilol 3.125 mg 08/12/18 18:00 08/15/18 18:11 Coreg PO 3.125 mg BID DENISHA Administration Clopidogrel Bisulfate 75 mg 08/14/18 12:45 08/15/18 09:45 Plavix PO 75 mg DAILY DENISHA Administration Diltiazem HCl 120 mg 08/12/18 10:00 08/15/18 18:14 Cardizem Cd PO 120 mg DAILY DENISHA Administration Docusate Sodium 100 mg 08/12/18 10:00 08/15/18 18:11 Colace PO 100 mg BID DENISHA Administration Heparin Sodium (Porcine) 5,000 units 08/11/18 22:00 08/16/18 06:45 Heparin SC 5,000 units Q8 DENISHA Administration Protocol Dextrose 1,000 mls @ 0 mls/hr 08/11/18 20:03 Dextrose 5% In Water 1000 Ml IV .Q0M PRN Hypoglycemia Protocol Protocol Per Protocol Ceftriaxone Sodium 1 gm in 100 mls @ 100 mls/hr 08/12/18 10:00 08/15/18 11:37 Rocephin 1 Gram Ivpb IVPB 100 mls/hr DAILY DENISHA Administration Protocol Azithromycin 500 mg in 250 mls @ 167 mls/hr 08/12/18 10:00 08/15/18 11:58 Zithromax 500mg In Ns IVPB 167 mls/hr DAILY DENISHA Administration Protocol Insulin Human Regular 0 units 08/11/18 22:00 08/15/18 22:00 Humulin R Med SC Not Given ACHS DENISHA Protocol Levalbuterol HCl 1.25 mg 08/14/18 02:00 08/16/18 13:34 Xopenex IH 1.25 mg [id number] DEINSHA Administration Losartan Potassium 100 mg 08/13/18 21:35 08/14/18 09:54 Cozaar PO 100 mg DAILY DENISHA Administration Oseltamivir Phosphate 30 mg 08/16/18 18:00 Tamiflu PO 08/21/18 10:01 BID DENISHA Protocol Pantoprazole Sodium 40 mg 08/12/18 06:00 08/16/18 06:46 Protonix Ec Tab PO 40 mg 0600 DENISHA Administration Potassium Phos/Sodium Phos 2 pkt 08/16/18 10:00 Neutra-Phos PO BID DENISHA - Patient Studies Lab Studies: Microbiology Studies 08/11/18 19:00 Blood Culture - Preliminary Blood NO GROWTH AFTER 4 DAYS 08/11/18 17:40 Blood Culture - Preliminary Blood NO GROWTH AFTER 4 DAYS Lab Studies 08/16/18 08/16/18 08/16/18 Range/Units 16:46 11:20 08:02 WBC (4.5-11.0) 10^3/uL RBC (3.5-6.1) 10^6/uL Hgb (14.0-18.0) g/dL Hct (42.0-52.0) % MCV (80.0-105.0) fl MCH (25.0-35.0) pg MCHC (31.0-37.0) g/dl RDW (11.5-14.5) % Plt Count (120.0-450.0) 10^3/uL MPV (7.0-11.0) fl Gran % (50.0-68.0) % Lymph % (Auto) (22.0-35.0) % Hill % (Auto) (1.0-6.0) % Eos % (Auto) (1.5-5.0) % Baso % (Auto) (0.0-3.0) % Gran # (1.4-6.5) Lymph # (Auto) (1.2-3.4) Hill # (Auto) (0.1-0.6) Eos # (Auto) (0.0-0.7) Baso # (Auto) (0.0-2.0) K/mm3 Sodium (132-148) mmol/L Potassium (3.6-5.0) mmol/L Chloride (98-107) mmol/L Carbon Dioxide (21-33) mmol/L Anion Gap (10-20) BUN (7-21) mg/dL Creatinine (0.8-1.5) mg/dl Est GFR ( Amer) Est GFR (Non-Af Amer) POC Glucose (mg/dL) 273 H 253 H 191 H (65-110) mg/dL Random Glucose (70-110) mg/dL Calcium (8.4-10.5) mg/dL Phosphorus (2.5-4.5) mg/dL Magnesium (1.7-2.2) mg/dL Total Bilirubin (0.2-1.3) mg/dL AST (17-59) U/L ALT (7-56) U/L Alkaline Phosphatase (38-126) U/L Total Protein (5.8-8.3) g/dL Albumin (3.0-4.8) g/dL Globulin gm/dL Albumin/Globulin Ratio (1.1-1.8) M.pneumoniae IgG Titer 08/16/18 08/16/18 08/15/18 Range/Units 05:34 05:31 22:17 WBC 11.4 H (4.5-11.0) 10^3/uL RBC 3.78 (3.5-6.1) 10^6/uL Hgb 9.8 L (14.0-18.0) g/dL Hct 29.8 L (42.0-52.0) % MCV 78.8 L (80.0-105.0) fl MCH 25.9 (25.0-35.0) pg MCHC 32.9 (31.0-37.0) g/dl RDW 15.5 H (11.5-14.5) % Plt Count 249 (120.0-450.0) 10^3/uL MPV 8.9 (7.0-11.0) fl Gran % 73.7 H (50.0-68.0) % Lymph % (Auto) 10.1 L (22.0-35.0) % Hill % (Auto) 12.4 H (1.0-6.0) % Eos % (Auto) 3.6 (1.5-5.0) % Baso % (Auto) 0.2 (0.0-3.0) % Gran # 8.43 H (1.4-6.5) Lymph # (Auto) 1.2 (1.2-3.4) Hill # (Auto) 1.4 H (0.1-0.6) Eos # (Auto) 0.4 (0.0-0.7) Baso # (Auto) 0.02 (0.0-2.0) K/mm3 Sodium 141 (132-148) mmol/L Potassium 3.9 (3.6-5.0) mmol/L Chloride 110 H (98-107) mmol/L Carbon Dioxide 17 L (21-33) mmol/L Anion Gap 17 (10-20) BUN 25 H (7-21) mg/dL Creatinine 1.2 (0.8-1.5) mg/dl Est GFR ( Amer) > 60 Est GFR (Non-Af Amer) 57 POC Glucose (mg/dL) 137 H (65-110) mg/dL Random Glucose 162 H (70-110) mg/dL Calcium 8.4 (8.4-10.5) mg/dL Phosphorus 2.2 L (2.5-4.5) mg/dL Magnesium 1.9 (1.7-2.2) mg/dL Total Bilirubin 0.5 (0.2-1.3) mg/dL AST 63 H D (17-59) U/L ALT 43 (7-56) U/L Alkaline Phosphatase 108 (38-126) U/L Total Protein 6.7 (5.8-8.3) g/dL Albumin 3.1 (3.0-4.8) g/dL Globulin 3.6 gm/dL Albumin/Globulin Ratio 0.8 L (1.1-1.8) M.pneumoniae IgG Titer 08/15/18 08/11/18 Range/Units 16:09 21:00 WBC (4.5-11.0) 10^3/uL RBC (3.5-6.1) 10^6/uL Hgb (14.0-18.0) g/dL Hct (42.0-52.0) % MCV (80.0-105.0) fl MCH (25.0-35.0) pg MCHC (31.0-37.0) g/dl RDW (11.5-14.5) % Plt Count (120.0-450.0) 10^3/uL MPV (7.0-11.0) fl Gran % (50.0-68.0) % Lymph % (Auto) (22.0-35.0) % Hill % (Auto) (1.0-6.0) % Eos % (Auto) (1.5-5.0) % Baso % (Auto) (0.0-3.0) % Gran # (1.4-6.5) Lymph # (Auto) (1.2-3.4) Hill # (Auto) (0.1-0.6) Eos # (Auto) (0.0-0.7) Baso # (Auto) (0.0-2.0) K/mm3 Sodium (132-148) mmol/L Potassium (3.6-5.0) mmol/L Chloride (98-107) mmol/L Carbon Dioxide (21-33) mmol/L Anion Gap (10-20) BUN (7-21) mg/dL Creatinine (0.8-1.5) mg/dl Est GFR ( Amer) Est GFR (Non-Af Amer) POC Glucose (mg/dL) 171 H (65-110) mg/dL Random Glucose (70-110) mg/dL Calcium (8.4-10.5) mg/dL Phosphorus (2.5-4.5) mg/dL Magnesium (1.7-2.2) mg/dL Total Bilirubin (0.2-1.3) mg/dL AST (17-59) U/L ALT (7-56) U/L Alkaline Phosphatase (38-126) U/L Total Protein (5.8-8.3) g/dL Albumin (3.0-4.8) g/dL Globulin gm/dL Albumin/Globulin Ratio (1.1-1.8) M.pneumoniae IgG Titer Cancelled Laboratory Results - last 24 hr 08/11/18 08/15/18 08/15/18 21:00 16:09 22:17 WBC RBC Hgb Hct MCV MCH MCHC RDW Plt Count MPV Gran % Lymph % (Auto) Hill % (Auto) Eos % (Auto) Baso % (Auto) Gran # Lymph # (Auto) Hill # (Auto) Eos # (Auto) Baso # (Auto) Sodium Potassium Chloride Carbon Dioxide Anion Gap BUN Creatinine Est GFR ( Amer) Est GFR (Non-Af Amer) POC Glucose (mg/dL) 171 H 137 H Random Glucose Calcium Phosphorus Magnesium Total Bilirubin AST ALT Alkaline Phosphatase Total Protein Albumin Globulin Albumin/Globulin Ratio M.pneumoniae IgG Titer Cancelled 08/16/18 08/16/18 08/16/18 05:31 05:34 08:02 WBC 11.4 H RBC 3.78 Hgb 9.8 L Hct 29.8 L MCV 78.8 L MCH 25.9 MCHC 32.9 RDW 15.5 H Plt Count 249 MPV 8.9 Gran % 73.7 H Lymph % (Auto) 10.1 L Hill % (Auto) 12.4 H Eos % (Auto) 3.6 Baso % (Auto) 0.2 Gran # 8.43 H Lymph # (Auto) 1.2 Hill # (Auto) 1.4 H Eos # (Auto) 0.4 Baso # (Auto) 0.02 Sodium 141 Potassium 3.9 Chloride 110 H Carbon Dioxide 17 L Anion Gap 17 BUN 25 H Creatinine 1.2 Est GFR ( Amer) > 60 Est GFR (Non-Af Amer) 57 POC Glucose (mg/dL) 191 H Random Glucose 162 H Calcium 8.4 Phosphorus 2.2 L Magnesium 1.9 Total Bilirubin 0.5 AST 63 H D ALT 43 Alkaline Phosphatase 108 Total Protein 6.7 Albumin 3.1 Globulin 3.6 Albumin/Globulin Ratio 0.8 L M.pneumoniae IgG Titer 08/16/18 08/16/18 11:20 16:46 WBC RBC Hgb Hct MCV MCH MCHC RDW Plt Count MPV Gran % Lymph % (Auto) Hill % (Auto) Eos % (Auto) Baso % (Auto) Gran # Lymph # (Auto) Hill # (Auto) Eos # (Auto) Baso # (Auto) Sodium Potassium Chloride Carbon Dioxide Anion Gap BUN Creatinine Est GFR ( Amer) Est GFR (Non-Af Amer) POC Glucose (mg/dL) 253 H 273 H Random Glucose Calcium Phosphorus Magnesium Total Bilirubin AST ALT Alkaline Phosphatase Total Protein Albumin Globulin Albumin/Globulin Ratio M.pneumoniae IgG Titer EKG/Cardiology Studies: Cardiology / EKG Studies 08/16/18 11:15 ELECTROCARDIOGRAM DAILY Comment: Reason For Exam: chest pain Critical Care Progress Note - Nutrition Nutrition: Nutrition Category Date Time Status Heart Healthy Diet [DIET] Diets 08/14/18 Lunch Active Addendum Addendum: 08/16/18 17:50 ICU Attending Addendum Patent seen and examined with housestaff. Agree with progress note with following additions/exceptions: 87 M PMH DM, HTN, HLD initially brought to the ICU for hypoxia. Found to have NSTEMI s/p cath 2-vessel disease with 2stent to RCA. LAD still diseased, will need stent in future. Cont post-cath mmt of CAD as per cardio Pulm standpoint improved. Requiring only 4L oxygen now on tx for CAP Cl- elevated, may be causing some acidosis d/c fluids with NS change abx to PO Medically stable for transfer out of ICU Rest of care as above Phi Keating MD Pulmonary Critical Care and Sleep Medicine
--- NOTE | 2018-08-16 09:04 | CP.PCM.PN ---
<Jovan Nevarez - Last Filed: 08/16/18 15:21> Subjective - Date & Time of Evaluation Date of Evaluation: 08/16/18 Time of Evaluation: 09:01 - Subjective Subjective: PGY-1 Medicine Progress Note for Dr. Reyes Patient seen and examined at bedside this AM, in no acute distress s/p cardiac cath procedure. No acute overnight events reported. Patient requires constant re-orientation when speaking to him, otherwise alert and oriented. No chest pain, palpitations, dizziness, acute sob, cough, abdominal pain, n/v/d/c. Objective - Vital Signs/Intake and Output Vital Signs (last 24 hours): Temp Pulse Resp BP Pulse Ox 97.8 F 89 47 H 130/59 L 91 L 08/16/18 03:13 08/16/18 08:30 08/16/18 08:30 08/16/18 08:00 08/16/18 08:30 Intake and Output: 08/16/18 08/16/18 06:59 18:59 Intake Total 740 Output Total 700 Balance 40 - Medications Medications: Current Medications Acetylcysteine (Acetylcysteine 20%) 4 ml IH BIDRESP [facility] Last Admin: 08/16/18 07:32 Dose: 4 ml Aspirin (Ecotrin) 81 mg PO DAILY [facility] Last Admin: 08/15/18 09:00 Dose: 81 mg Atorvastatin Calcium (Lipitor) 40 mg PO DIN [facility] Last Admin: 08/15/18 18:11 Dose: 40 mg Benzonatate (Tessalon Perles) 100 mg PO TID PRN PRN Reason: Cough Last Admin: 08/16/18 06:46 Dose: 100 mg Carvedilol (Coreg) 3.125 mg PO BID [facility] Last Admin: 08/15/18 18:11 Dose: 3.125 mg Clopidogrel Bisulfate (Plavix) 75 mg PO DAILY [facility] Last Admin: 08/15/18 09:45 Dose: 75 mg Diltiazem HCl (Cardizem Cd) 120 mg PO DAILY [facility] Last Admin: 08/15/18 18:14 Dose: 120 mg Docusate Sodium (Colace) 100 mg PO BID [facility] Last Admin: 08/15/18 18:11 Dose: 100 mg Heparin Sodium (Porcine) (Heparin) 5,000 units SC Q8 [facility]; Protocol Last Admin: 08/16/18 06:45 Dose: 5,000 units Dextrose (Dextrose 5% In Water 1000 Ml) 1,000 mls @ 0 mls/hr IV .Q0M PRN; Protocol PRN Reason: Hypoglycemia Protocol Ceftriaxone Sodium (Rocephin 1 Gram Ivpb) 1 gm in 100 mls @ 100 mls/hr IVPB DAILY [facility]; Protocol Last Admin: 08/15/18 11:37 Dose: 100 mls/hr Azithromycin (Zithromax 500mg In Ns) 500 mg in 250 mls @ 167 mls/hr IVPB DAILY [facility]; Protocol Last Admin: 08/15/18 11:58 Dose: 167 mls/hr Insulin Human Regular (Humulin R Med) 0 units SC ACHS [facility]; Protocol Last Admin: 08/15/18 22:00 Dose: Not Given Levalbuterol HCl (Xopenex) 1.25 mg IH [id number] [facility] Last Admin: 08/16/18 07:32 Dose: 1.25 mg Losartan Potassium (Cozaar) 100 mg PO DAILY [facility] Last Admin: 08/14/18 09:54 Dose: 100 mg Oseltamivir Phosphate (Tamiflu) 75 mg PO BID [facility]; Protocol Stop: 08/21/18 10:01 Pantoprazole Sodium (Protonix Ec Tab) 40 mg PO 0600 [facility] Last Admin: 08/16/18 06:46 Dose: 40 mg Potassium Phos/Sodium Phos (Neutra-Phos) 2 pkt PO BID [facility] - Labs Labs: 08/16/18 05:31 08/16/18 05:34 APTT 45.3 Seconds (25.1-36.5) H 08/13/18 11:00 - Constitutional Appears: Non-toxic, No Acute Distress, Chronically Ill - Head Exam Head Exam: ATRAUMATIC, NORMAL INSPECTION, NORMOCEPHALIC - Eye Exam Eye Exam: EOMI, Normal appearance - ENT Exam ENT Exam: Mucous Membranes Moist, Normal Exam - Neck Exam Neck Exam: Full ROM, Normal Inspection - Respiratory Exam Respiratory Exam: Rales, NORMAL BREATHING PATTERN. absent: Accessory Muscle Use, Rhonchi, Wheezes, Respiratory Distress, Stridor - Cardiovascular Exam Cardiovascular Exam: REGULAR RHYTHM, +S1, +S2 - GI/Abdominal Exam GI & Abdominal Exam: Soft, Normal Bowel Sounds. absent: Distended, Firm, Guarding, Rigid, Tenderness, Organomegaly - Extremities Exam Extremities Exam: Normal Capillary Refill, Normal Inspection. absent: Calf Tenderness, Joint Swelling - Back Exam Back Exam: NORMAL INSPECTION - Neurological Exam Neurological Exam: Alert, Awake, Oriented x3 - Psychiatric Exam Psychiatric exam: Normal Affect, Normal Mood - Skin Skin Exam: Dry, Intact, Normal Color, Warm Assessment and Plan - Assessment and Plan (Free Text) Assessment: 87 year old male with PMH DM, HTN, HLD, initially admitted for bilateral CAP, developed NSTEMI. Pt admitted to ICU for hypoxic respiratory failure likely 2/2 cardiogenic pulmonary edema. He is s/p cardiac catheterization with 2 RCA bare- metal stents d/t recent history of hemoptysis. Plan: Influenza -influenza type A and B Ab positive -mycoplasma pneumoniae IgG elevated -pt afebrile, wbc downtrending 11.4 (08/16) -begin tamiflu (08/16) -droplet precautions Hypoxia likely 2/2 acute CHF from NSTEMI--resolved - hypoxia since improved, no new episodes of hemoptysis noted - in ICU for further monitoring - IVF d/c'd - strict I&Os, daily weights. - Xopenex ren - continue to monitor CAP - CXR: lower lobe infiltrates L>R, likely atelectasis/pneumonia - Chest CT: no evidence of PE. Multifocal PNA of lower lobes. Small bilateral pleural effusions. - c/w azithromycin and rocephin NSTEMI,CHF - trop elevated - EKG showed sinus tachycardia with RBBB. inferior infarct of undetermined age. - Discontinued heparin drip due to hemoptysis - strict I&Os, daily weights - Cardio recs (Dr. 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 Amy Nevarez DO, PGY-1 <Kartik Reyes - Last Filed: 08/16/18 16:20> Objective - Vital Signs/Intake and Output Vital Signs (last 24 hours): Temp Pulse Resp BP Pulse Ox 97.8 F 84 33 H 119/65 87 L 08/16/18 03:13 08/16/18 09:38 08/16/18 09:30 08/16/18 09:00 08/16/18 09:30 Intake and Output: 08/16/18 08/16/18 06:59 18:59 Intake Total 740 Output Total 700 Balance 40 - Medications Medications: Current Medications Acetylcysteine (Acetylcysteine 20%) 4 ml IH BIDRESP [facility] Last Admin: 08/16/18 07:32 Dose: 4 ml Aspirin (Ecotrin) 81 mg PO DAILY [facility] Last Admin: 08/15/18 09:00 Dose: 81 mg Atorvastatin Calcium (Lipitor) 40 mg PO DIN [facility] Last Admin: 08/15/18 18:11 Dose: 40 mg Benzonatate (Tessalon Perles) 100 mg PO TID PRN PRN Reason: Cough Last Admin: 08/16/18 06:46 Dose: 100 mg Carvedilol (Coreg) 3.125 mg PO BID [facility] Last Admin: 08/15/18 18:11 Dose: 3.125 mg Clopidogrel Bisulfate (Plavix) 75 mg PO DAILY [facility] Last Admin: 08/15/18 09:45 Dose: 75 mg Diltiazem HCl (Cardizem Cd) 120 mg PO DAILY [facility] Last Admin: 08/15/18 18:14 Dose: 120 mg Docusate Sodium (Colace) 100 mg PO BID [facility] Last Admin: 08/15/18 18:11 Dose: 100 mg Heparin Sodium (Porcine) (Heparin) 5,000 units SC Q8 [facility]; Protocol Last Admin: 08/16/18 06:45 Dose: 5,000 units Dextrose (Dextrose 5% In Water 1000 Ml) 1,000 mls @ 0 mls/hr IV .Q0M PRN; Protocol PRN Reason: Hypoglycemia Protocol Ceftriaxone Sodium (Rocephin 1 Gram Ivpb) 1 gm in 100 mls @ 100 mls/hr IVPB DAILY [facility]; Protocol Last Admin: 08/15/18 11:37 Dose: 100 mls/hr Azithromycin (Zithromax 500mg In Ns) 500 mg in 250 mls @ 167 mls/hr IVPB DAILY [facility]; Protocol Last Admin: 08/15/18 11:58 Dose: 167 mls/hr Insulin Human Regular (Humulin R Med) 0 units SC ACHS [facility]; Protocol Last Admin: 08/15/18 22:00 Dose: Not Given Levalbuterol HCl (Xopenex) 1.25 mg IH [id number] [facility] Last Admin: 08/16/18 13:34 Dose: 1.25 mg Losartan Potassium (Cozaar) 100 mg PO DAILY [facility] Last Admin: 08/14/18 09:54 Dose: 100 mg Oseltamivir Phosphate (Tamiflu) 30 mg PO BID [facility]; Protocol Stop: 08/21/18 10:01 Pantoprazole Sodium (Protonix Ec Tab) 40 mg PO 0600 [facility] Last Admin: 08/16/18 06:46 Dose: 40 mg Potassium Phos/Sodium Phos (Neutra-Phos) 2 pkt PO BID [facility] - Labs Labs: 08/16/18 05:31 08/16/18 05:34 APTT 45.3 Seconds (25.1-36.5) H 08/13/18 11:00 Attending/Attestation - Attestation I have personally seen and examined this patient.: Yes I have fully participated in the care of the patient.: Yes I have reviewed all pertinent clinical information, including history, physical exam and plan: Yes Notes (Text): 08/16/18 16:15 87 year old male with past medical history of hypertension and diabetes who presented with cough and generalized weakness. He was found to have bilateral lower lobe pneumonia and NSTEMI. Also found to have cardiomyopathy with EF 40- 45% on echocariogram. He was started on iv lasix, aspirin, plavix, statin and heparin drip. Heparin drip was later discontinued secondary to hemoptysis, now resolved. Lasix was held for cath procedure which he underwent yesterday with 2 bare metal stents placed in RCA. Continue with aspirin, plavix, cozaar and statin. Continue with iv antibiotics for pneumonia. Influenza A/B titers also came back positive and he is started on tamiflu. PT is following and recommended TCU. Kartik Reyes MD Hospitalist.
[2018-08-16] MEDS: Potassium & Sodium Phosphate PO SCH ×2 (10:30→18:20)
[2018-08-16] MEDS: cefTRIAXone 1 gm 1 GM/100 ML BAG IVPB SCH (10:30)
[2018-08-16] MEDS: diltiaZEM 120 mg/24 Hours CD Cap PO SCH (10:35)
[2018-08-16] MEDS: Azithromycin 500MG/NS 250ml 500 MG/250 ML BAG IVPB SCH (11:00)
--- NOTE | 2018-08-16 11:00 | PN ---
DATE: 08/16/2018 CARDIOLOGY FOLLOWUP SUBJECTIVE: The patient is awake, alert, feeling better. PHYSICAL EXAMINATION: VITAL SIGNS: Blood pressure is 119/65, heart rate in the 80s. NECK: Negative JVD. LUNGS: Without rales. HEART: S1 and S2. EXTREMITIES: Without edema. Right groin site is stable. LABORATORY DATA: Hemoglobin is 9.8. Chemistries: BUN and creatinine are stable at 25 and 1.2, glucose is 162. IMPRESSION: 1. Stable post percutaneous transluminal coronary angioplasty and stent of two lesions in the right coronary artery with bare-metal stents. 2. Status post [id number] myocardial infarction. 3. Multivessel coronary artery disease. 4. Hypercholesterolemia. 5. Diabetes mellitus. 6. Peripheral vascular disease. PLAN: Given these findings, we will follow his creatinine. His Peacock should be discontinued. If the patient's creatinine remained stable, we will bring him back to the collaborating supervising physician on for stage PTCA of the LAD. Tam Avila MD
--- NOTE | 2018-08-16 20:19 | CARD ---
APPROVED REPORT Date of service: 08/16/2018 EKG Measurement Heart [id number] <Conclusion> Normal sinus rhythm Right bundle branch block Marked T wave abnormality, consider anterolateral ischemia Abnormal ECG
[2018-08-17] MEDS: Levalbuterol 1.25 MG/3 ML Inhal Soln UD IH SCH ×4 (02:35→19:25)
[2018-08-17] MEDS: Pantoprazole 40 mg EC Tab PO SCH (06:02)
[2018-08-17 06:25] LABS: BASO # 0.02 K/mm3 (0.0-2.0); BASO % 0.2 % (0.0-3.0); EOS # 0.6 (0.0-0.7); EOS % 5.1 % (1.5-5.0); GRAN # 8.71 (1.4-6.5); GRAN % 73.3 % (50.0-68.0); HEMOGLOBIN 9.5 g/dL (14.0-18.0); LYMPH # 1.5 (1.2-3.4); LYMPH % 12.8 % (22.0-35.0); MEAN CELL VOLUME 78.6 fl (80.0-105.0); MEAN CORPUSCULAR HEMOGLOBIN 26.4 pg (25.0-35.0); MEAN CORPUSCULAR HGB CONC 33.6 g/dl (31.0-37.0); MEAN PLATELET VOLUME 8.8 fl (7.0-11.0); MONO % 8.6 % (1.0-6.0); RBC 3.6 10^6/uL (3.5-6.1); RED CELL DISTRIBUTION WIDTH 15.5 % (11.5-14.5); WHITE BLOOD COUNT 11.9 10^3/uL (4.5-11.0)
[2018-08-17 06:58] LABS: ALB/GLOB RATIO 0.8 (1.1-1.8); ALT/SGPT 37 U/L (7-56); AST/SGOT 61 U/L (17-59); BLOOD UREA NITROGEN 24 mg/dL (7-21); CALCIUM 8.4 mg/dL (8.4-10.5); GFR NON-AFRICAN AMERICAN 52
[2018-08-17] MEDS ORDERED: Potassium Chloride 20 mEq ER Tab PO ONE (07:26)
[2018-08-17] MEDS: Acetylcysteine 20% Inhal Soln (4ml) IH SCH ×2 (07:58→19:25)
--- NOTE | 2018-08-17 08:17 | PN ---
DATE: 08/17/2018 CARDIOLOGY FOLLOWUP SUBJECTIVE: The patient is free of chest pain. PHYSICAL EXAMINATION: VITAL SIGNS: Blood pressure is 140/70, heart rate is in the 80s. NECK: Negative JVD. LUNGS: Without rales. HEART: Reveals S1, S2. EXTREMITIES: Without edema. LABORATORY DATA: Hemoglobin is 9.5. Chemistries: BUN and creatinine are normal. Glucose is 163. IMPRESSION: 1. Stable post percutaneous transluminal coronary angioplasty and stent of the right coronary artery. 2. Multivessel coronary artery disease. 3. Diabetes mellitus. 4. [id number] myocardial infarction. PLAN: Given these findings, the patient is scheduled for cardiac catheterization and PTCA of the LAD in the morning. Tam Avila MD
[2018-08-17] MEDS: Insulin Reg-MEDIUM-Coverage SC SCH ×4 (08:29→22:00)
--- NOTE | 2018-08-17 08:35 | CP.PCM.PN ---
<Jovan Nevarez - Last Filed: 08/17/18 14:32> Subjective - Date & Time of Evaluation Date of Evaluation: 08/17/18 Time of Evaluation: 08:32 - Subjective Subjective: PGY-1 Medicine Progress Note for Dr. Belcher Patient seen and examined at bedside this AM. No acute overnight events reported. Patient continues to require re-orientation, otherwise alert and oriented. No acute complaints at this time. No fevers/chills, headaches, dizziness, acute sob, chest pain, palpitations, abdominal pain, n/v/d/c, dysuria. Objective - Vital Signs/Intake and Output Vital Signs (last 24 hours): Temp Pulse Resp BP Pulse Ox 97.8 F 84 32 H 140/70 90 L 08/16/18 03:13 08/17/18 06:30 08/17/18 06:30 08/17/18 06:00 08/16/18 15:50 Intake and Output: 08/17/18 08/17/18 06:59 18:59 Intake Total 240 Balance 240 - Medications Medications: Current Medications Acetylcysteine (Acetylcysteine 20%) 4 ml IH BIDRESP [facility] Last Admin: 08/17/18 07:58 Dose: 4 ml Aspirin (Ecotrin) 81 mg PO DAILY [facility] Last Admin: 08/16/18 10:30 Dose: 81 mg Atorvastatin Calcium (Lipitor) 40 mg PO DIN [facility] Last Admin: 08/16/18 18:19 Dose: 40 mg Benzonatate (Tessalon Perles) 100 mg PO TID PRN PRN Reason: Cough Last Admin: 08/16/18 18:27 Dose: 100 mg Carvedilol (Coreg) 3.125 mg PO BID [facility] Last Admin: 08/16/18 18:09 Dose: 3.125 mg Clopidogrel Bisulfate (Plavix) 75 mg PO DAILY [facility] Last Admin: 08/16/18 10:30 Dose: 75 mg Diltiazem HCl (Cardizem Cd) 120 mg PO DAILY [facility] Last Admin: 08/16/18 10:35 Dose: 120 mg Docusate Sodium (Colace) 100 mg PO BID [facility] Last Admin: 08/16/18 18:06 Dose: 100 mg Heparin Sodium (Porcine) (Heparin) 5,000 units SC Q8 [facility]; Protocol Last Admin: 08/17/18 06:02 Dose: 5,000 units Dextrose (Dextrose 5% In Water 1000 Ml) 1,000 mls @ 0 mls/hr IV .Q0M PRN; Protocol PRN Reason: Hypoglycemia Protocol Ceftriaxone Sodium (Rocephin 1 Gram Ivpb) 1 gm in 100 mls @ 100 mls/hr IVPB DAILY [facility]; Protocol Last Admin: 08/16/18 10:30 Dose: 100 mls/hr Azithromycin (Zithromax 500mg In Ns) 500 mg in 250 mls @ 167 mls/hr IVPB DAILY [facility]; Protocol Last Admin: 08/16/18 11:00 Dose: 167 mls/hr Insulin Human Regular (Humulin R Med) 0 units SC ACHS [facility]; Protocol Last Admin: 08/16/18 22:10 Dose: Not Given Levalbuterol HCl (Xopenex) 1.25 mg IH [id number] [facility] Last Admin: 08/17/18 07:58 Dose: 1.25 mg Losartan Potassium (Cozaar) 100 mg PO DAILY [facility] Last Admin: 08/14/18 09:54 Dose: 100 mg Oseltamivir Phosphate (Tamiflu) 30 mg PO BID [facility]; Protocol Stop: 08/21/18 10:01 Last Admin: 08/16/18 18:27 Dose: 30 mg Pantoprazole Sodium (Protonix Ec Tab) 40 mg PO 0600 [facility] Last Admin: 08/17/18 06:02 Dose: 40 mg Potassium Phos/Sodium Phos (Neutra-Phos) 2 pkt PO BID [facility] Last Admin: 08/16/18 18:20 Dose: 2 pkt - Labs Labs: 08/17/18 06:00 08/17/18 06:00 APTT 45.3 Seconds (25.1-36.5) H 08/13/18 11:00 - Constitutional Appears: Non-toxic, No Acute Distress, Chronically Ill - Head Exam Head Exam: ATRAUMATIC, NORMAL INSPECTION, NORMOCEPHALIC - Eye Exam Eye Exam: EOMI, Normal appearance - ENT Exam ENT Exam: Mucous Membranes Moist, Normal Exam - Neck Exam Neck Exam: Full ROM, Normal Inspection - Respiratory Exam Respiratory Exam: Rales, NORMAL BREATHING PATTERN. absent: Accessory Muscle Use, Rhonchi, Wheezes, Respiratory Distress, Stridor - Cardiovascular Exam Cardiovascular Exam: REGULAR RHYTHM, +S1, +S2 - GI/Abdominal Exam GI & Abdominal Exam: Soft, Normal Bowel Sounds. absent: Distended, Firm, Guarding, Rigid, Tenderness, Organomegaly - Extremities Exam Extremities Exam: Full ROM, Normal Capillary Refill, Normal Inspection - Back Exam Back Exam: NORMAL INSPECTION - Neurological Exam Neurological Exam: Alert, Awake, Oriented x3 - Psychiatric Exam Psychiatric exam: Normal Affect, Normal Mood - Skin Skin Exam: Dry, Intact, Normal Color, Warm Assessment and Plan - Assessment and Plan (Free Text) Assessment: 87 year old male with PMH DM, HTN, HLD, initially admitted for bilateral CAP, developed NSTEMI. Pt admitted to ICU for hypoxic respiratory failure likely 2/2 cardiogenic pulmonary edema. He is s/p cardiac catheterization with 2 RCA bare- metal stents d/t recent history of hemoptysis. Plan: Influenza -influenza type A and B Ab positive -mycoplasma pneumoniae IgG elevated -pt afebrile, wbc downtrending 11.4 (08/16) -begin tamiflu (08/16) -droplet precautions Hypoxia likely 2/2 acute CHF from NSTEMI--resolved - hypoxia since improved, no new episodes of hemoptysis noted - in ICU for further monitoring - IVF d/c'd - strict I&Os, daily weights. - Xopenex ren - continue to monitor CAP - CXR: lower lobe infiltrates L>R, likely atelectasis/pneumonia - Chest CT: no evidence of PE. Multifocal PNA of lower lobes. Small bilateral pleural effusions. - c/w azithromycin and rocephin NSTEMI,CHF - trop elevated - EKG showed sinus tachycardia with RBBB. inferior infarct of undetermined age. - Discontinued heparin drip due to hemoptysis - strict I&Os, daily weights - Cardio recs (Dr. 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 Simi Nevarez DO, PGY-1 <Radha Belcher - Last Filed: 08/17/18 14:55> Objective - Vital Signs/Intake and Output Vital Signs (last 24 hours): Temp Pulse Resp BP Pulse Ox 97.8 F 91 H 32 H 130/84 90 L 08/16/18 03:13 08/17/18 10:37 08/17/18 06:30 08/17/18 10:37 08/16/18 15:50 Intake and Output: 08/17/18 08/17/18 06:59 18:59 Intake Total 240 Balance 240 - Medications Medications: Current Medications Acetylcysteine (Acetylcysteine 20%) 4 ml IH BIDRESP [facility] Last Admin: 08/17/18 07:58 Dose: 4 ml Aspirin (Ecotrin) 81 mg PO DAILY [facility] Last Admin: 08/17/18 10:34 Dose: 81 mg Atorvastatin Calcium (Lipitor) 40 mg PO DIN [facility] Last Admin: 08/16/18 18:19 Dose: 40 mg Benzonatate (Tessalon Perles) 100 mg PO TID PRN PRN Reason: Cough Last Admin: 08/16/18 18:27 Dose: 100 mg Carvedilol (Coreg) 3.125 mg PO BID [facility] Last Admin: 08/17/18 10:37 Dose: 3.125 mg Clopidogrel Bisulfate (Plavix) 75 mg PO DAILY [facility] Last Admin: 08/17/18 10:36 Dose: 75 mg Diltiazem HCl (Cardizem Cd) 120 mg PO DAILY [facility] Last Admin: 08/17/18 10:36 Dose: 120 mg Docusate Sodium (Colace) 100 mg PO BID [facility] Last Admin: 08/17/18 10:34 Dose: 100 mg Guaifenesin/Dextromethorphan (Mucinex-Dm 600-30 Mg) 1 tab PO BID PRN PRN Reason: Cough Heparin Sodium (Porcine) (Heparin) 5,000 units SC Q8 [facility]; Protocol Last Admin: 08/17/18 14:32 Dose: 5,000 units Dextrose (Dextrose 5% In Water 1000 Ml) 1,000 mls @ 0 mls/hr IV .Q0M PRN; Protocol PRN Reason: Hypoglycemia Protocol Ceftriaxone Sodium (Rocephin 1 Gram Ivpb) 1 gm in 100 mls @ 100 mls/hr IVPB DAILY [facility]; Protocol Last Admin: 08/17/18 10:37 Dose: 100 mls/hr Azithromycin (Zithromax 500mg In Ns) 500 mg in 250 mls @ 167 mls/hr IVPB DAILY [facility]; Protocol Last Admin: 08/17/18 10:38 Dose: 167 mls/hr Insulin Human Regular (Humulin R Med) 0 units SC ACHS [facility]; Protocol Last Admin: 08/17/18 11:46 Dose: 5 u Levalbuterol HCl (Xopenex) 1.25 mg IH [id number] [facility] Last Admin: 08/17/18 13:57 Dose: 1.25 mg Losartan Potassium (Cozaar) 100 mg PO DAILY [facility] Last Admin: 08/17/18 10:37 Dose: 100 mg Oseltamivir Phosphate (Tamiflu) 30 mg PO BID [facility]; Protocol Stop: 08/21/18 10:01 Last Admin: 08/17/18 10:37 Dose: 30 mg Pantoprazole Sodium (Protonix Ec Tab) 40 mg PO 0600 [facility] Last Admin: 08/17/18 06:02 Dose: 40 mg Potassium Phos/Sodium Phos (Neutra-Phos) 2 pkt PO BID [facility] Last Admin: 08/17/18 10:34 Dose: 2 pkt - Labs Labs: 08/17/18 06:00 08/17/18 06:00 APTT 45.3 Seconds (25.1-36.5) H 08/13/18 11:00 Attending/Attestation - Attestation I have personally seen and examined this patient.: Yes I have fully participated in the care of the patient.: Yes I have reviewed all pertinent clinical information, including history, physical exam and plan: Yes Notes (Text): 08/17/18 14:51 Patient was seen and examined with medical apparatus model maker. 87 year old male with past medical history of hypertension and diabetes who presented with cough and generalized weakness. She was found to have bilateral lower lobe pneumonia and NSTEMI. Echo reveals systolic dysfunction,EF 32%.Patient underwent cardiac cath yesterday with 2 bare metal stents placed in RCA. Patient is on aspirin, plavix and coreg. Renal functions are stable. Patient is for repeat cardiac cath and LAD stent by cardiology tomorrow. Patient is euvolemic today. Continue with iv antibiotics for pneumonia. Also found to have flu started on tamiflu. 08/17/18 14:54
[2018-08-17] MEDS: Potassium & Sodium Phosphate PO SCH ×2 (10:34→17:12)
[2018-08-17] MEDS: diltiaZEM 120 mg/24 Hours CD Cap PO SCH (10:36)
[2018-08-17] MEDS: cefTRIAXone 1 gm 1 GM/100 ML BAG IVPB SCH (10:37)
[2018-08-17] MEDS: Azithromycin 500MG/NS 250ml 500 MG/250 ML BAG IVPB SCH (10:38)
[2018-08-17] MEDS: guaiFENesin-DM 600-30 mg ER Tab PO PRN ×2 (15:39→23:00)
[2018-08-18] MEDS: Levalbuterol 1.25 MG/3 ML Inhal Soln UD IH SCH ×4 (02:21→19:05)
[2018-08-18] MEDS: Pantoprazole 40 mg EC Tab PO SCH (05:31)
[2018-08-18 06:57] LABS: BASO # 0.02 K/mm3 (0.0-2.0); BASO % 0.2 % (0.0-3.0); EOS # 0.5 (0.0-0.7); EOS % 3.6 % (1.5-5.0); GRAN # 10.1 (1.4-6.5); GRAN % 79.4 % (50.0-68.0); HEMOGLOBIN 8.8 g/dL (14.0-18.0); INR 1.2; LYMPH # 1.2 (1.2-3.4); LYMPH % 9.4 % (22.0-35.0); MEAN CELL VOLUME 78.5 fl (80.0-105.0); MEAN CORPUSCULAR HGB CONC 33.1 g/dl (31.0-37.0); MONO # 0.9 (0.1-0.6); MONO % 7.4 % (1.0-6.0); PARTIAL THROMBOPLASTIN TIME 25.8 Seconds (25.1-36.5); PROTHROMBIN TIME 13.9 SECONDS (9.4-12.5); RBC 3.39 10^6/uL (3.5-6.1); RED CELL DISTRIBUTION WIDTH 15.7 % (11.5-14.5); WHITE BLOOD COUNT 12.7 10^3/uL (4.5-11.0)
[2018-08-18] MEDS ORDERED: Lidocaine 2% Inj (20ml) ONE (07:10)
[2018-08-18] MEDS ORDERED: Iohexol 350mgl/ml 50 ML ONE (07:10)
[2018-08-18] MEDS ORDERED: Nitroglycerin 50mg in D5W 0 MG/0 ML BOTTLE IV ONE (07:10)
[2018-08-18] MEDS ORDERED: Iodixanol 320 MG/ML 200 ML BOTTLE IV ONE (07:10)
[2018-08-18] MEDS ORDERED: Iodixanol 320 MG/ML 100 ML BOTTLE IV ONE (07:10)
--- NOTE | 2018-08-18 07:48 | CP.PCM.PN ---
<Jovan Nevarez - Last Filed: 08/18/18 14:12> Subjective - Date & Time of Evaluation Date of Evaluation: 08/18/18 Time of Evaluation: 09:00 - Subjective Subjective: PGY-1 Medicine Progress Note for Dr. Belcher Patient seen and examined at bedside this AM s/p cardiac cath procedure for PTCA and stent of two critical lesions in the LAD and and PTCA and stent of the distal RCA with drug-eluting stents. No complications reported, patient in no acute distress. 12 pt ROS unchanged at this time. Objective - Vital Signs/Intake and Output Vital Signs (last 24 hours): Temp Pulse Resp BP Pulse Ox 98.8 F 78 26 H 141/60 92 L 08/18/18 04:00 08/18/18 06:43 08/18/18 06:00 08/18/18 06:43 08/18/18 06:00 Intake and Output: 08/18/18 08/18/18 06:59 18:59 Intake Total 100 Output Total 200 Balance -100 - Medications Medications: Current Medications Acetylcysteine (Acetylcysteine 20%) 4 ml IH BIDRESP [facility] Last Admin: 08/17/18 19:25 Dose: 4 ml Aspirin (Ecotrin) 81 mg PO DAILY [facility] Last Admin: 08/18/18 06:49 Dose: 81 mg Atorvastatin Calcium (Lipitor) 40 mg PO DIN [facility] Last Admin: 08/17/18 17:12 Dose: 40 mg Azithromycin (Zithromax) 500 mg PO DAILY [facility] Stop: 08/20/18 12:21 Benzonatate (Tessalon Perles) 100 mg PO TID PRN PRN Reason: Cough Last Admin: 08/17/18 21:30 Dose: 100 mg Carvedilol (Coreg) 3.125 mg PO BID [facility] Last Admin: 08/18/18 06:43 Dose: 3.125 mg Clopidogrel Bisulfate (Plavix) 75 mg PO DAILY [facility] Last Admin: 08/18/18 06:44 Dose: 75 mg Diltiazem HCl (Cardizem Cd) 120 mg PO DAILY [facility] Last Admin: 08/17/18 10:36 Dose: 120 mg Docusate Sodium (Colace) 100 mg PO BID [facility] Last Admin: 08/17/18 17:11 Dose: 100 mg Guaifenesin/Dextromethorphan (Mucinex-Dm 600-30 Mg) 1 tab PO BID PRN PRN Reason: Cough Last Admin: 08/17/18 23:00 Dose: 1 tab Heparin Sodium (Porcine) (Heparin) 5,000 units SC Q8 [facility]; Protocol Last Admin: 08/18/18 05:29 Dose: Not Given Ceftriaxone Sodium (Rocephin 1 Gram Ivpb) 1 gm in 100 mls @ 100 mls/hr IVPB DAILY [facility]; Protocol Last Admin: 08/17/18 10:37 Dose: 100 mls/hr Insulin Human Regular (Humulin R Med) 0 units SC ACHS [facility]; Protocol Last Admin: 08/17/18 22:00 Dose: Not Given Levalbuterol HCl (Xopenex) 1.25 mg IH [id number] [facility] Last Admin: 08/18/18 02:21 Dose: 1.25 mg Losartan Potassium (Cozaar) 100 mg PO DAILY [facility] Last Admin: 08/17/18 10:37 Dose: 100 mg Oseltamivir Phosphate (Tamiflu) 30 mg PO BID [facility]; Protocol Stop: 08/21/18 10:01 Last Admin: 08/17/18 17:12 Dose: 30 mg Pantoprazole Sodium (Protonix Ec Tab) 40 mg PO 0600 [facility] Last Admin: 08/18/18 05:31 Dose: 40 mg Potassium Phos/Sodium Phos (Neutra-Phos) 2 pkt PO BID [facility] Last Admin: 08/17/18 17:12 Dose: 2 pkt - Labs Labs: 08/18/18 05:30 08/17/18 06:00 PT 13.9 SECONDS (9.4-12.5) H 08/18/18 05:30 INR 1.20 08/18/18 05:30 APTT 25.8 Seconds (25.1-36.5) 08/18/18 05:30 - Constitutional Appears: Non-toxic, No Acute Distress - Head Exam Head Exam: ATRAUMATIC, NORMAL INSPECTION, NORMOCEPHALIC - Eye Exam Eye Exam: EOMI, Normal appearance Pupil Exam: NORMAL ACCOMODATION - ENT Exam ENT Exam: Mucous Membranes Moist, Normal Exam - Neck Exam Neck Exam: Full ROM, Normal Inspection - Respiratory Exam Respiratory Exam: Rales, NORMAL BREATHING PATTERN. absent: Accessory Muscle Use, Rhonchi, Wheezes, Respiratory Distress, Stridor - Cardiovascular Exam Cardiovascular Exam: REGULAR RHYTHM, +S1, +S2 - GI/Abdominal Exam GI & Abdominal Exam: Soft, Normal Bowel Sounds. absent: Distended, Firm, Guarding, Rigid, Tenderness, Organomegaly, Rebound - Extremities Exam Extremities Exam: Normal Capillary Refill, Normal Inspection. absent: Calf Tenderness, Joint Swelling, Pedal Edema - Back Exam Back Exam: NORMAL INSPECTION - Neurological Exam Neurological Exam: Alert, Awake, Oriented x3 - Psychiatric Exam Psychiatric exam: Normal Affect, Normal Mood - Skin Skin Exam: Dry, Intact, Normal Color, Warm Assessment and Plan - Assessment and Plan (Free Text) Assessment: 87 year old male with PMH DM, HTN, HLD, initially admitted for bilateral CAP, developed NSTEMI. Pt admitted to ICU for hypoxic respiratory failure likely 2/2 cardiogenic pulmonary edema. He is s/p cardiac catheterization with 2 RCA bare- metal stents (08/15) d/t recent history of hemoptysis, 2 drug-eluting stents pl aced (08/18) in the LAD and distal RCA. Plan: NSTEMI,CHF - trop elevated - EKG showed sinus tachycardia with RBBB. inferior infarct of undetermined age. - Discontinued heparin drip due to hemoptysis - strict I&Os, daily weights - Cardio recs (Dr. Avila) appreciated - successful PTCA and stent of 2 critical lesions in RCA using bare metal stents due to recent hx of hemoptysis (08/15) - successful PTCA and stent of 2 critical lesions in LAD and distal RCA using drug-eluting stents (08/18) - normal LVEDP in the left ventricle - multivessel CAD -Given these findings, patient will need to remain on ASA indefinitely and Plavix for at least a year, undergo a strict cardiac risk reduction program CAP - CXR: lower lobe infiltrates L>R, likely atelectasis/pneumonia - Chest CT: no evidence of PE. Multifocal PNA of lower lobes. Small bilateral pleural effusions. - c/w azithromycin and rocephin Hypoxia likely 2/2 acute CHF from NSTEMI--resolved - hypoxia since improved, no new episodes of hemoptysis noted - in ICU for further monitoring - IVF d/c'd - strict I&Os, daily weights. - Xopenex ren - continue to monitor Influenza -influenza type A and B Ab positive -mycoplasma pneumoniae IgG elevated -pt afebrile, wbc downtrending 11.4 (08/16) -began tamiflu (08/16) Hx of HTN - c/w ASA 81, cozaar 100 mg, losartan 100 mg, cardizem 120 mg (holding parameters in place) Hx of DM - ISS medium - Lipid panel wnl - Hgb A1c: 9.0 PPx, Diet, Disposition - DVT: Heparin 5000U sc q8 - GI: Protonix - Diet: HHD - PT/OT on board: recommend TCU Case discussed with Dr. Simi Nevarez DO, PGY-1 <Radha Belcher - Last Filed: 08/18/18 16:01> Objective - Vital Signs/Intake and Output Vital Signs (last 24 hours): Temp Pulse Resp BP Pulse Ox 98.8 F 78 52 H 130/56 L 72 L 08/18/18 04:00 08/18/18 14:15 08/18/18 14:15 08/18/18 14:15 08/18/18 14:15 Intake and Output: 08/18/18 08/18/18 06:59 18:59 Intake Total 100 Output Total 200 Balance -100 - Medications Medications: Current Medications Acetaminophen (Tylenol 325mg Tab) 650 mg PO Q4H PRN PRN Reason: Pain, Mild (1-3) Acetylcysteine (Acetylcysteine 20%) 4 ml IH BIDRESP [facility] Last Admin: 08/18/18 08:09 Dose: Not Given Aspirin (Ecotrin) 81 mg PO DAILY [facility] Last Admin: 08/18/18 10:16 Dose: Not Given Atorvastatin Calcium (Lipitor) 40 mg PO DIN [facility] Last Admin: 08/17/18 17:12 Dose: 40 mg Azithromycin (Zithromax) 500 mg PO DAILY [facility] Stop: 08/20/18 12:21 Last Admin: 08/18/18 10:18 Dose: 500 mg Benzonatate (Tessalon Perles) 100 mg PO TID PRN PRN Reason: Cough Last Admin: 08/17/18 21:30 Dose: 100 mg Carvedilol (Coreg) 3.125 mg PO BID [facility] Last Admin: 08/18/18 10:16 Dose: Not Given Clopidogrel Bisulfate (Plavix) 75 mg PO DAILY [facility] Last Admin: 08/18/18 10:16 Dose: Not Given Diltiazem HCl (Cardizem Cd) 120 mg PO DAILY [facility] Last Admin: 08/18/18 10:19 Dose: 120 mg Docusate Sodium (Colace) 100 mg PO BID [facility] Last Admin: 08/18/18 10:20 Dose: 100 mg Guaifenesin/Dextromethorphan (Mucinex-Dm 600-30 Mg) 1 tab PO BID PRN PRN Reason: Cough Last Admin: 08/17/18 23:00 Dose: 1 tab Heparin Sodium (Porcine) (Heparin) 5,000 units SC Q8 [facility]; Protocol Last Admin: 08/18/18 13:49 Dose: 5,000 units Ceftriaxone Sodium (Rocephin 1 Gram Ivpb) 1 gm in 100 mls @ 100 mls/hr IVPB DAILY [facility]; Protocol Last Admin: 08/18/18 10:20 Dose: 100 mls/hr Insulin Human Regular (Humulin R Med) 0 units SC ACHS [facility]; Protocol Last Admin: 08/18/18 12:27 Dose: Not Given Levalbuterol HCl (Xopenex) 1.25 mg IH [id number] [facility] Last Admin: 08/18/18 13:11 Dose: 1.25 mg Losartan Potassium (Cozaar) 100 mg PO DAILY [facility] Last Admin: 08/18/18 10:19 Dose: 100 mg Oseltamivir Phosphate (Tamiflu) 30 mg PO BID [facility]; Protocol Stop: 08/21/18 10:01 Last Admin: 08/18/18 10:19 Dose: 30 mg Pantoprazole Sodium (Protonix Ec Tab) 40 mg PO 0600 [facility] Last Admin: 08/18/18 05:31 Dose: 40 mg Potassium Phos/Sodium Phos (Neutra-Phos) 2 pkt PO BID [facility] Last Admin: 08/18/18 10:20 Dose: 2 pkt - Labs Labs: 08/18/18 05:30 08/18/18 05:30 PT 13.9 SECONDS (9.4-12.5) H 08/18/18 05:30 INR 1.20 08/18/18 05:30 APTT 25.8 Seconds (25.1-36.5) 08/18/18 05:30 Attending/Attestation - Attestation I have personally seen and examined this patient.: Yes I have fully participated in the care of the patient.: Yes I have reviewed all pertinent clinical information, including history, physical exam and plan: Yes Notes (Text): 08/18/18 16:00 Patient was seen and examined with medical professionals. 87 year old male with past medical history of hypertension and diabetes who presented with cough and generalized weakness. She was found to have bilateral lower lobe pneumonia and NSTEMI. Echo reveals systolic dysfunction,EF 32%. Patient underwent cardiac cath 08/16/18 with 2 bare metal stents placed in RCA and repeat Cardiac cathtoday and has drug eluting stent in LAD and distal RCA. . Patient is on aspirin, plavix and coreg. Monitor creatinine closely post cath procedure. Continue with iv antibiotics for pneumonia. Also found to have flu started on tamiflu.
[2018-08-18] MEDS: Acetylcysteine 20% Inhal Soln (4ml) IH SCH ×2 (08:09→19:05)
[2018-08-18 08:19] LABS: ALB/GLOB RATIO 0.8 (1.1-1.8); ALBUMIN 2.9 g/dL (3.0-4.8); ALT/SGPT 42 U/L (7-56); AST/SGOT 59 U/L (17-59); BLOOD UREA NITROGEN 19 mg/dL (7-21); CALCIUM 8.4 mg/dL (8.4-10.5); GFR NON-AFRICAN AMERICAN 57
[2018-08-18] MEDS ORDERED: Midazolam 2 MG/2 ML VIAL ONE (08:30)
[2018-08-18] MEDS ORDERED: Sodium Chloride 0.9% 1,000 ML IV SCH (09:45)
[2018-08-18] MEDS: Insulin Reg-MEDIUM-Coverage SC SCH ×4 (10:11→22:41)
--- NOTE | 2018-08-18 10:12 | CARDCATH ---
PROCEDURE DATE: 08/18/2018 PTCA AND STENT AND CARDIAC CATHETERIZATION HISTORY: The patient is an 87-year-old male, who presents with a non-STEMI. He was found to have multivessel CAD and has undergone staged PTCA. Because of his renal insufficiency, the procedure was divided and by several days. The left femoral artery was cannulated with a 6-Fijian sheath. There were no complications. I performed moderate sedation, which included the presence of an independent trained observer that assisted in monitoring the patient's consciousness and physiologic status. After administration of Versed and fentanyl, my intra service time was 30 minutes. Initial coronary arteriography revealed a patent stent in the proximal portion of the RCA as well as the ostium, which was placed last week. The LAD revealed two critical lesions with a 95% stenosis in the mid to distal portion as well as a 80% stenosis in the midportion at the takeoff of the diagonal vessel. LVEDP was measured, which revealed an LVEDP of 10 mmHg. After starting intravenous Angiomax, the guiding catheter was placed in the ostium of the left main artery. An 0.014 ATW wire was used to cross the two lesions. A 2 balloon was utilized to predilate both lesions. Two drug-eluting stents were placed in the mid to distal lesion as well as in the mid lesion. Repeat coronary arteriography revealed an excellent result with no residual stenosis and FABRIZIO 3 flow. This was then exchanged for a right guider catheter, which was assisted with a guideliner for better support. An 0.014 ATW wire was used to cross the critical lesion past the two initial stents, which were 80% lesions. A 2.5 x 18 mm drug-eluting stent was placed and deployed in the mid to distal RCA and deployed at 14 atmospheres of pressure. Repeat coronary arteriography revealed resolution of the 80% stenosis in the RCA with excellent result and FABRIZIO 3 flow with no residual stenosis. Angio-Seal was used to close the left femoral artery site. The patient tolerated the procedure well. In summary, the procedure was successful for PTCA and stent of two critical lesions in the LAD and PTCA and stent of the distal RCA with drug-eluting stents. Drug-eluting stents were utilized because after a week of Plavix, the patient's hemoglobin remained stable. In addition, the vessels in the LAD were smaller in caliber, which would be better with long-term success with drug-eluting stents. Cardiac catheterization reveals normal LVEDP in the left ventricle. Multivessel CAD. Given these findings, the patient will need to remain on aspirin indefinitely and Plavix for at least a year and undergo a strict cardiac risk reduction program. Tam Avila MD
[2018-08-18] MEDS: diltiaZEM 120 mg/24 Hours CD Cap PO SCH (10:19)
[2018-08-18] MEDS: Potassium & Sodium Phosphate PO SCH ×2 (10:20→17:10)
[2018-08-18] MEDS: cefTRIAXone 1 gm 1 GM/100 ML BAG IVPB SCH (10:20)
[2018-08-18] MEDS: guaiFENesin-DM 600-30 mg ER Tab PO PRN (17:11)
--- NOTE | 2018-08-18 19:27 | CARD ---
APPROVED REPORT Date of service: 08/18/2018 EKG Measurement Heart [id number] <Conclusion> Sinus rhythm with occasional premature ventricular complexes Right bundle branch block Marked T wave abnormality, consider anterolateral ischemia Abnormal ECG
[2018-08-19] MEDS: Levalbuterol 1.25 MG/3 ML Inhal Soln UD IH SCH ×3 (02:00→13:35)
[2018-08-19 05:48] LABS: BASO # 0.04 K/mm3 (0.0-2.0); BASO % 0.3 % (0.0-3.0); EOS # 0.4 (0.0-0.7); EOS % 3.4 % (1.5-5.0); GRAN # 9.93 (1.4-6.5); GRAN % 77.1 % (50.0-68.0); HEMOGLOBIN 8.5 g/dL (14.0-18.0); LYMPH # 1.6 (1.2-3.4); LYMPH % 12.1 % (22.0-35.0); MEAN CELL VOLUME 78.3 fl (80.0-105.0); MEAN CORPUSCULAR HGB CONC 33.2 g/dl (31.0-37.0); MEAN PLATELET VOLUME 8.9 fl (7.0-11.0); MONO # 0.9 (0.1-0.6); MONO % 7.1 % (1.0-6.0); RBC 3.27 10^6/uL (3.5-6.1); RED CELL DISTRIBUTION WIDTH 15.7 % (11.5-14.5); WHITE BLOOD COUNT 12.9 10^3/uL (4.5-11.0)
[2018-08-19] MEDS: Pantoprazole 40 mg EC Tab PO SCH (06:52)
[2018-08-19] MEDS: Acetylcysteine 20% Inhal Soln (4ml) IH SCH (07:41)
[2018-08-19 08:00] LABS: BLOOD UREA NITROGEN 15 mg/dL (7-21); CALCIUM 7.9 mg/dL (8.4-10.5); GFR NON-AFRICAN AMERICAN > 60
[2018-08-19] MEDS ORDERED: Potassium Chloride 20 mEq ER Tab PO ONE (08:40)
--- NOTE | 2018-08-19 10:13 | PN ---
DATE: 08/19/2018 SUBJECTIVE: The patient is chest pain free. PHYSICAL EXAMINATION: VITAL SIGNS: Blood pressure is 143/62, the heart rates in the 70s. NECK: Negative JVD. LUNGS: Decreased breath sounds. HEART: Reveal S1, S2. EXTREMITIES: Without edema. LABORATORY DATA: Hemoglobin is 8.5. Chemistries, BUN and creatinine are unremarkable. Glucose 153. IMPRESSION: 1. Stable post multivessel percutaneous transluminal coronary angioplasty and stent. 2. Non-ST elevation myocardial infarction. 3. Diabetes mellitus. 4. Hypercholesterolemia. 5. Anemia. Given these findings, the patient is doing well post percutaneous transluminal coronary angioplasty and stent. From a cardiac perspective, the patient can participate in physical therapy. Will need to get out of bed and transferred to telemetry. Tam Avila MD
[2018-08-19] MEDS: diltiaZEM 120 mg/24 Hours CD Cap PO SCH (10:25)
[2018-08-19] MEDS: cefTRIAXone 1 gm 1 GM/100 ML BAG IVPB SCH (10:32)
[2018-08-19] MEDS: guaiFENesin-DM 600-30 mg ER Tab PO PRN (10:34)
[2018-08-19] MEDS: Insulin Reg-MEDIUM-Coverage SC SCH ×3 (10:36→16:44)
[2018-08-19] MEDS: Potassium & Sodium Phosphate PO SCH ×2 (10:38→17:33)
[2018-08-19] MEDS: Nystatin 100,000 Units/gm Topical Pow(15 gm) TOP SCH ×3 (10:38→17:36)
--- NOTE | 2018-08-19 12:33 | CP.PCM.DIS ---
<Jovan Nevarez - Last Filed: 08/19/18 17:06> Provider - Provider Date of Admission: 08/11/18 18:39 Attending physician: Kartik Reyes MD Time Spent in preparation of Discharge (in minutes): 40 Hospital Course - Lab Results Lab Results: Micro Results 08/11/18 19:00 Blood Blood Culture - Final NO GROWTH AFTER 5 DAYS 08/11/18 19:00 Blood Gram Stain - Final TEST NOT PERFORMED 08/11/18 17:40 Blood Blood Culture - Final NO GROWTH AFTER 5 DAYS 08/11/18 17:40 Blood Gram Stain - Final TEST NOT PERFORMED 08/13/18 20:45 Nose MRSA Culture (Admit) - Final MRSA NOT DETECTED 08/12/18 20:50 Naris MRSA Culture (Admit) - Final MRSA NOT DETECTED 08/11/18 21:00 Urine Urine Culture - Final Gram Positive Cocci Most Recent Lab Values WBC 12.9 10^3/uL (4.5-11.0) H 08/19/18 05:29 RBC 3.27 10^6/uL (3.5-6.1) L 08/19/18 05:29 Hgb 8.5 g/dL (14.0-18.0) L 08/19/18 05:29 Hct 25.6 % (42.0-52.0) L 08/19/18 05:29 MCV 78.3 fl (80.0-105.0) L 08/19/18 05:29 MCH 26.0 pg (25.0-35.0) 08/19/18 05:29 MCHC 33.2 g/dl (31.0-37.0) 08/19/18 05:29 RDW 15.7 % (11.5-14.5) H 08/19/18 05:29 Plt Count 366 10^3/uL (120.0-450.0) 08/19/18 05:29 MPV 8.9 fl (7.0-11.0) 08/19/18 05:29 Gran % 77.1 % (50.0-68.0) H 08/19/18 05:29 Lymph % (Auto) 12.1 % (22.0-35.0) L 08/19/18 05:29 Gilmer % (Auto) 7.1 % (1.0-6.0) H 08/19/18 05:29 Eos % (Auto) 3.4 % (1.5-5.0) 08/19/18 05:29 Baso % (Auto) 0.3 % (0.0-3.0) 08/19/18 05:29 Gran # 9.93 (1.4-6.5) H 08/19/18 05:29 Lymph # (Auto) 1.6 (1.2-3.4) 08/19/18 05:29 Gilmer # (Auto) 0.9 (0.1-0.6) H 08/19/18 05:29 Eos # (Auto) 0.4 (0.0-0.7) 08/19/18 05:29 Baso # (Auto) 0.04 K/mm3 (0.0-2.0) 08/19/18 05:29 PT 13.9 SECONDS (9.4-12.5) H 08/18/18 05:30 INR 1.20 08/18/18 05:30 APTT 25.8 Seconds (25.1-36.5) 08/18/18 05:30 pCO2 28 mm/Hg (35-45) L 08/15/18 08:10 pO2 49.0 mm/Hg (80-100) L 08/15/18 08:10 HCO3 19.5 mmol/L (21-28) L 08/15/18 08:10 ABG pH 7.45 (7.35-7.45) 08/15/18 08:10 ABG Total CO2 20.4 mmol.L (22-28) L 08/15/18 08:10 ABG O2 Saturation 90.9 % (95-98) L 08/15/18 08:10 ABG O2 Content 10.9 ML/dl (15-23) L 08/15/18 08:10 ABG Base Excess -3.8 mmol/L (-2.0-3.0) L 08/15/18 08:10 ABG Hemoglobin 8.7 g/dL (11.7-17.4) L 08/15/18 08:10 ABG Carboxyhemoglobin 2.0 % (0.5-1.5) H 08/15/18 08:10 POC ABG HHb (Measured) 8.9 % (0-5) H 08/15/18 08:10 ABG Methemoglobin 0.5 % (0.0-3.0) 08/15/18 08:10 ABG O2 Capacity 12.0 mL/dl (16-24) L 08/15/18 08:10 Hgb O2 Saturation 88.6 % (95.0-98.0) L 08/15/18 08:10 FiO2 44.0 % 08/15/18 08:10 Sodium 139 mmol/L (132-148) 08/19/18 05:29 Potassium 3.4 mmol/L (3.6-5.0) L 08/19/18 05:29 Chloride 107 mmol/L (98-107) 08/19/18 05:29 Carbon Dioxide 22 mmol/L (21-33) 08/19/18 05:29 Anion Gap 13 (10-20) 08/19/18 05:29 BUN 15 mg/dL (7-21) 08/19/18 05:29 Creatinine 1.1 mg/dl (0.8-1.5) 08/19/18 05:29 Est GFR ( Amer) > 60 08/19/18 05:29 Est GFR (Non-Af Amer) > 60 08/19/18 05:29 POC Glucose (mg/dL) 156 mg/dL (65-110) H 08/19/18 07:57 Random Glucose 153 mg/dL (70-110) H 08/19/18 05:29 Hemoglobin A1c 9.0 % (4.2-6.5) H 08/11/18 17:40 Calcium 7.9 mg/dL (8.4-10.5) L 08/19/18 05:29 Phosphorus 3.4 mg/dL (2.5-4.5) 08/18/18 05:30 Magnesium 1.8 mg/dL (1.7-2.2) 08/18/18 05:30 Total Bilirubin 0.6 mg/dL (0.2-1.3) 08/18/18 05:30 AST 59 U/L (17-59) 08/18/18 05:30 ALT 42 U/L (7-56) 08/18/18 05:30 Alkaline Phosphatase 112 U/L (38-126) 08/18/18 05:30 Lactate Dehydrogenase 639 U/L (333-699) 08/11/18 17:40 Total Creatine Kinase 179 U/L (35-230) 08/11/18 17:40 Troponin I 2.55 ng/mL H* D 08/13/18 21:40 NT-Pro-B Natriuret Pep 17232 pg/mL (0-450) H 08/13/18 21:40 Total Protein 6.5 g/dL (5.8-8.3) 08/18/18 05:30 Albumin 2.9 g/dL (3.0-4.8) L 08/18/18 05:30 Globulin 3.6 gm/dL 08/18/18 05:30 Albumin/Globulin Ratio 0.8 (1.1-1.8) L 08/18/18 05:30 Triglycerides 192 mg/dL (35-160) H 08/11/18 17:40 Cholesterol 156 mg/dL (130-200) 08/11/18 17:40 LDL Cholesterol Direct 75 mg/dL (0-129) 08/11/18 17:40 HDL Cholesterol 37 mg/dL (29-60) 08/11/18 17:40 Procalcitonin 5.06 NG/ML (0.19-0.49) H 08/11/18 21:00 Urine Color Yellow (YELLOW) 08/11/18 21:00 Urine Appearance Clear (CLEAR) 08/11/18 21:00 Urine pH 6.0 (4.7-8.0) 08/11/18 21:00 Ur Specific [place] 1.025 (1.005-1.035) 08/11/18 21:00 Urine Protein 100 mg/dL (<30 mg/dL) H 08/11/18 21:00 Urine Glucose (UA) >=1000 mg/dL (NEGATIVE) 08/11/18 21:00 Urine Ketones Negative mg/dL (NEGATIVE) 08/11/18 21:00 Urine Blood Large (NEGATIVE) H 08/11/18 21:00 Urine Nitrate Negative (NEGATIVE) 08/11/18 21:00 Urine Bilirubin Negative (NEGATIVE) 08/11/18 21:00 Urine Urobilinogen 0.2 E.U./dL (<1 E.U./dL) 08/11/18 21:00 Ur Leukocyte Esterase Negative Lizeth/uL (NEGATIVE) 08/11/18 21:00 Urine RBC 1 - 3 /hpf (0-2) 08/11/18 21:00 Urine WBC 0 - 2 /hpf (0-6) 08/11/18 21:00 Ur Epithelial Cells 0 - 2 /hpf (0-5) 08/11/18 21:00 Urine Bacteria Rare (NEG) 08/11/18 21:00 Influenza Type A Ab 1:64 titer (<1:8) H 08/11/18 21:00 Influenza Type B Ab 1:32 titer (<1:8) H 08/11/18 21:00 Ur L.pneumophila Ag Negative (NEGATIVE) 08/11/18 22:40 M.pneumoniae IgG Titer Cancelled 08/11/18 21:00 Mycoplasma pneumon IgG 1.52 (<=0.90) H 08/11/18 21:00 Mycoplasma pneumon IgM 7 U/mL (<770) 08/11/18 21:00 Pneumocystis Source Serum 08/11/18 21:00 S. pneumoniae Antigen Not detected 08/11/18 21:00 - Hospital Course Hospital Course: HPI: Patient is an 87 year old male with past medical history of diabetes mellitus, hypertension, and hyperlipidemia who presented for 2 week history of cough and 3 day history of weakness. He states that his cough has been present for about 3 weeks and is non-productive. He denies any recent travel or sick contacts. He states that he has taken robutussin and mucinex which has not helped him bring up phlegm or help alleviate the cough. He states that he is not having any chest pain, SOB, fevers, chills, body aches, runny nose, congestion, nausea, vomiting, abdominal pain, dysuria, hematuria. He denies the cough being worse at night or any other factors that exacerbate the cough. For the weakness the patient states that he has not had an appetite for the past 3 days, and is feeling weak and as if he is unable to support his own weight. He denies having any falls and is able to ambulate at home without issue, but it has been more tiring for him to walk lately. He states that he is not having any nausea, vomiting after meals but he simply feels weak after the coughing. He denies any difficulty in swallowing, pain with swallowing or feeling as if food is getting stuck in his throat. During the course of admission: Patient was found to have bilateral lower lobe pneumonia and NSTEMI. He was treated with rocephin and azithromycin for pneumonia, He was transferred to ICU for hypoxic respiratory failure secondary to cardiogenic pulmonary edema. He was started on IV lasix, aspirin, plavix, and heparin drip. Heparin drip was later discontinued secondary to hemoptysis, since resolved. Patient's respiratory status improved on 4L NC with normal 02 saturation. Echocardiogram revealed systolic dysfunction with an ejection fraction of 32%. Cardiology was consulted (Dr. Avila), and lasix was held for cardiac catheterization procedure for which patient underwent (08/15/18) with successful placement of 2 bare metal stents in the RCA due to recent history of hemoptysis and successful placement of 2 drug eluting stents 08/18 in the distal RCA and LAD respectively. Patient is on aspirin, plavix, and coreg. Creatinine was monitored closely post cath procedure and remained stable. Patient was also found to have influenza during course of admission and started on 5 day course of tamiflu. Patient clinically improved during course. He remains afebrile with no leukocytosis. His hypoxic respirtatory status has since resolved and his breathing has clinically improved, with clearer lung sounds. Per Cardiology, he is cleared for physical therapy. Patient is medically stable for discharge to subacute rehabilitation, as per Dr. Reyes. He is instructed to continue all medications as prescribed. Antibiotics are to be continued for 2 more days for a 10 day total course. Tamiflu is to be continued for 1 more day for a 5 day total course. Please follow up with your primary care physician within 1 week of discharge from rehab for continued care and monitoring. If symptoms worsen, please return to ED for further care. The following is a summary of hospital course. For further detail, please refer to EMR. - Date & Time of H&P Date of H&P: 08/19/18 Time of H&P: 11:58 Discharge Exam - Head Exam Head Exam: ATRAUMATIC, NORMAL INSPECTION, NORMOCEPHALIC - Eye Exam Eye Exam: EOMI, Normal appearance Pupil Exam: NORMAL ACCOMODATION - ENT Exam ENT Exam: Mucous Membranes Moist, Normal Exam - Neck Exam Neck exam: Full Rom, Normal Inspection - Respiratory Exam Respiratory Exam: Clear to PA & Lateral, NORMAL BREATHING PATTERN, UNREMARKABLE. absent: Accessory Muscle Use, Rales, Rhonchi, Wheezes, Respiratory Distress, Stridor - Cardiovascular Exam Cardiovascular Exam: REGULAR RHYTHM, +S1, +S2 - GI/Abdominal Exam GI & Abdominal Exam: Normal Bowel Sounds, Soft, Unremarkable. absent: Distended, Firm, Guarding, Hernia, Rebound, Rigid, Tenderness - Extremities Exam Extremities exam: normal capillary refill, normal inspection, pedal pulses present - Back Exam Back exam: NORMAL INSPECTION - Neurological Exam Neurological exam: Alert, CN II-XII Intact, Oriented x3 - Psychiatric Exam Psychiatric exam: Normal Affect, Normal Mood - Skin Skin Exam: Dry, Intact, Normal Color, Warm Discharge Plan - Follow Up Plan Condition: STABLE Disposition: REHAB FACILITY/REHAB UNIT Instructions: Coronary Heart Disease, Mediterranean Diet, Cardiac Catheterization (DC), Coronary Angioplasty (DC), Community-Acquired Pneumonia in Adults, Diabetic Meal Planning Additional Instructions: Patient is medically clear for discharge to subacute rehabilitation, as per Dr. Reyes. Patient to continue all medications as prescribed. Antibiotics are to be continued for 2 more days for a 10 day total course. Tamiflu is to be continued for 1 more day for a 5 day total course. Please follow up with your primary care provider within 1 week of discharge from subacute rehabilitation for continued care and management. If symptoms worsen, please return to the ED for further care. <Kartik Reyes - Last Filed: 08/20/18 08:00> Provider - Provider Date of Admission: 08/11/18 18:39 Attending physician: Kartik Reyes MD Hospital Course - Lab Results Lab Results: Micro Results 08/11/18 19:00 Blood Blood Culture - Final NO GROWTH AFTER 5 DAYS 08/11/18 19:00 Blood Gram Stain - Final TEST NOT PERFORMED 08/11/18 17:40 Blood Blood Culture - Final NO GROWTH AFTER 5 DAYS 08/11/18 17:40 Blood Gram Stain - Final TEST NOT PERFORMED 08/13/18 20:45 Nose MRSA Culture (Admit) - Final MRSA NOT DETECTED 08/12/18 20:50 Naris MRSA Culture (Admit) - Final MRSA NOT DETECTED 08/11/18 21:00 Urine Urine Culture - Final Gram Positive Cocci Most Recent Lab Values WBC 12.9 10^3/uL (4.5-11.0) H 08/19/18 05:29 RBC 3.27 10^6/uL (3.5-6.1) L 08/19/18 05:29 Hgb 8.5 g/dL (14.0-18.0) L 08/19/18 05:29 Hct 25.6 % (42.0-52.0) L 08/19/18 05:29 MCV 78.3 fl (80.0-105.0) L 08/19/18 05:29 MCH 26.0 pg (25.0-35.0) 08/19/18 05:29 MCHC 33.2 g/dl (31.0-37.0) 08/19/18 05:29 RDW 15.7 % (11.5-14.5) H 08/19/18 05:29 Plt Count 366 10^3/uL (120.0-450.0) 08/19/18 05:29 MPV 8.9 fl (7.0-11.0) 08/19/18 05:29 Gran % 77.1 % (50.0-68.0) H 08/19/18 05:29 Lymph % (Auto) 12.1 % (22.0-35.0) L 08/19/18 05:29 Gilmer % (Auto) 7.1 % (1.0-6.0) H 08/19/18 05:29 Eos % (Auto) 3.4 % (1.5-5.0) 08/19/18 05:29 Baso % (Auto) 0.3 % (0.0-3.0) 08/19/18 05:29 Gran # 9.93 (1.4-6.5) H 08/19/18 05:29 Lymph # (Auto) 1.6 (1.2-3.4) 08/19/18 05:29 Gilmer # (Auto) 0.9 (0.1-0.6) H 08/19/18 05:29 Eos # (Auto) 0.4 (0.0-0.7) 08/19/18 05:29 Baso # (Auto) 0.04 K/mm3 (0.0-2.0) 08/19/18 05:29 PT 13.9 SECONDS (9.4-12.5) H 08/18/18 05:30 INR 1.20 08/18/18 05:30 APTT 25.8 Seconds (25.1-36.5) 08/18/18 05:30 pCO2 28 mm/Hg (35-45) L 08/15/18 08:10 pO2 49.0 mm/Hg (80-100) L 08/15/18 08:10 HCO3 19.5 mmol/L (21-28) L 08/15/18 08:10 ABG pH 7.45 (7.35-7.45) 08/15/18 08:10 ABG Total CO2 20.4 mmol.L (22-28) L 08/15/18 08:10 ABG O2 Saturation 90.9 % (95-98) L 08/15/18 08:10 ABG O2 Content 10.9 ML/dl (15-23) L 08/15/18 08:10 ABG Base Excess -3.8 mmol/L (-2.0-3.0) L 08/15/18 08:10 ABG Hemoglobin 8.7 g/dL (11.7-17.4) L 08/15/18 08:10 ABG Carboxyhemoglobin 2.0 % (0.5-1.5) H 08/15/18 08:10 POC ABG HHb (Measured) 8.9 % (0-5) H 08/15/18 08:10 ABG Methemoglobin 0.5 % (0.0-3.0) 08/15/18 08:10 ABG O2 Capacity 12.0 mL/dl (16-24) L 08/15/18 08:10 Hgb O2 Saturation 88.6 % (95.0-98.0) L 08/15/18 08:10 FiO2 44.0 % 08/15/18 08:10 Sodium 139 mmol/L (132-148) 08/19/18 05:29 Potassium 3.4 mmol/L (3.6-5.0) L 08/19/18 05:29 Chloride 107 mmol/L (98-107) 08/19/18 05:29 Carbon Dioxide 22 mmol/L (21-33) 08/19/18 05:29 Anion Gap 13 (10-20) 08/19/18 05:29 BUN 15 mg/dL (7-21) 08/19/18 05:29 Creatinine 1.1 mg/dl (0.8-1.5) 08/19/18 05:29 Est GFR ( Amer) > 60 08/19/18 05:29 Est GFR (Non-Af Amer) > 60 08/19/18 05:29 POC Glucose (mg/dL) 181 mg/dL (65-110) H 08/19/18 15:58 Random Glucose 153 mg/dL (70-110) H 08/19/18 05:29 Hemoglobin A1c 9.0 % (4.2-6.5) H 08/11/18 17:40 Calcium 7.9 mg/dL (8.4-10.5) L 08/19/18 05:29 Phosphorus 3.4 mg/dL (2.5-4.5) 08/18/18 05:30 Magnesium 1.8 mg/dL (1.7-2.2) 08/18/18 05:30 Total Bilirubin 0.6 mg/dL (0.2-1.3) 08/18/18 05:30 AST 59 U/L (17-59) 08/18/18 05:30 ALT 42 U/L (7-56) 08/18/18 05:30 Alkaline Phosphatase 112 U/L (38-126) 08/18/18 05:30 Lactate Dehydrogenase 639 U/L (333-699) 08/11/18 17:40 Total Creatine Kinase 179 U/L (35-230) 08/11/18 17:40 Troponin I 2.55 ng/mL H* D 08/13/18 21:40 NT-Pro-B Natriuret Pep 37411 pg/mL (0-450) H 08/13/18 21:40 Total Protein 6.5 g/dL (5.8-8.3) 08/18/18 05:30 Albumin 2.9 g/dL (3.0-4.8) L 08/18/18 05:30 Globulin 3.6 gm/dL 08/18/18 05:30 Albumin/Globulin Ratio 0.8 (1.1-1.8) L 08/18/18 05:30 Triglycerides 192 mg/dL (35-160) H 08/11/18 17:40 Cholesterol 156 mg/dL (130-200) 08/11/18 17:40 LDL Cholesterol Direct 75 mg/dL (0-129) 08/11/18 17:40 HDL Cholesterol 37 mg/dL (29-60) 08/11/18 17:40 Procalcitonin 5.06 NG/ML (0.19-0.49) H 08/11/18 21:00 Urine Color Yellow (YELLOW) 08/11/18 21:00 Urine Appearance Clear (CLEAR) 08/11/18 21:00 Urine pH 6.0 (4.7-8.0) 08/11/18 21:00 Ur Specific [place] 1.025 (1.005-1.035) 08/11/18 21:00 Urine Protein 100 mg/dL (<30 mg/dL) H 08/11/18 21:00 Urine Glucose (UA) >=1000 mg/dL (NEGATIVE) 08/11/18 21:00 Urine Ketones Negative mg/dL (NEGATIVE) 08/11/18 21:00 Urine Blood Large (NEGATIVE) H 08/11/18 21:00 Urine Nitrate Negative (NEGATIVE) 08/11/18 21:00 Urine Bilirubin Negative (NEGATIVE) 08/11/18 21:00 Urine Urobilinogen 0.2 E.U./dL (<1 E.U./dL) 08/11/18 21:00 Ur Leukocyte Esterase Negative Lizeth/uL (NEGATIVE) 08/11/18 21:00 Urine RBC 1 - 3 /hpf (0-2) 08/11/18 21:00 Urine WBC 0 - 2 /hpf (0-6) 08/11/18 21:00 Ur Epithelial Cells 0 - 2 /hpf (0-5) 08/11/18 21:00 Urine Bacteria Rare (NEG) 08/11/18 21:00 Influenza Typ A,B (EIA) Negative for flu a/b (NEGATIVE) 08/19/18 13:30 Influenza Type A Ab 1:64 titer (<1:8) H 08/11/18 21:00 Influenza Type B Ab 1:32 titer (<1:8) H 08/11/18 21:00 Ur L.pneumophila Ag Negative (NEGATIVE) 08/11/18 22:40 M.pneumoniae IgG Titer Cancelled 08/11/18 21:00 Mycoplasma pneumon IgG 1.52 (<=0.90) H 08/11/18 21:00 Mycoplasma pneumon IgM 7 U/mL (<770) 08/11/18 21:00 Pneumocystis Source Serum 08/11/18 21:00 S. pneumoniae Antigen Not detected 08/11/18 21:00 Attending/Attestation - Attestation I have personally seen and examined this patient.: Yes I have fully participated in the care of the patient.: Yes I have reviewed all pertinent clinical information, including history, physical exam and plan: Yes Notes (Text): 08/19/18 87 year old male with past medical history of hypertension, diabetes and dyslipidemia who presented with weakness and cough. He was found to have bilateral infiltrates on CXR/CT and started on iv antibiotics. He was also found to have flu and started on tamiflu. He developed NSTEMI and underwent cardiac cath with 2 bare metal stents in the RCA followed by 2 LIBAN in distal RCA and LAD. He is on aspirin, statin, plavix and coreg. Cardiology is following. He was seen by PT who recommended rehab. Patient is discharged to rehab. Follow up with pmd. Follow up with cardiology. Continue with antibiotics. Continue with aspirin and plavix. Kartik Reyes MD Hospitalist.
[2018-08-19 17:36] VITALS: BP 128/72; RESP 16; TEMP 98.9; O2SAT 93
[2018-08-19 18:33] VITALS: PULSE 74
--- NOTE | 2018-08-19 19:08 | CARD ---
APPROVED REPORT Date of service: 08/19/2018 EKG Measurement Heart [id number] <Conclusion> Normal sinus rhythm Right bundle branch block Marked T wave abnormality, consider anterolateral ischemia Abnormal ECG
--- NOTE | 2018-08-24 17:28 | PQF ---
PROVIDER RESPONSE TEXT: Acute on chronic hypoxemic respiratory failure REVIEWER QUERY TEXT: Respiratory Failure Acuity and Type Respiratory Failure is documented in the Medical Record. Please specify the type and acuity (includes suspected or probable) Such as: -- Acute respiratory failure - With hypoxia - With hypercapnia -- Chronic respiratory failure - With hypoxia - With hypercapnia -- Acute on chronic respiratory failure - With hypoxia - With hypercapnia -- Other, please specify The patient's Clinical Indicators include: [facility] requires documentation of acuity when hypoxic resp failure is noted in the record. Please documen t Acute, Chronic or Acute on Chronic Query created by: Brigid Bodren on 08/16/2018 10:26 AM Electronically signed by: Carlton Campos MD 08/24/2018 5:25 PM
== END 2018-08-19 21:20 | DRG 246 ==
LOC: ED 16:38 → ERH 18:39 → 2RSO 21:24 → 2RNO 08-13 06:47 → ICU 08-13 20:09 → 2RSO 08-19 14:51
PROVIDERS: ADMIT Hospitalist; ATTEND Internal Medicine
PROC: 3E033GC Introduction of Other Therapeutic Substance into Peripheral Vein, Percutaneous Approach (ICD-10-PCS; 2018-08-11)
PROC: 5A09457 Assistance with Respiratory Ventilation, 24-96 Consecutive Hours, Continuous Positive Airway Pressure (ICD-10-PCS; 2018-08-13)
PROC: 02703DZ Dilation of Coronary Artery, One Artery with Intraluminal Device, Percutaneous Approach (ICD-10-PCS; principal; 2018-08-15)
PROC: 4A023N7 Measurement of Cardiac Sampling and Pressure, Left Heart, Percutaneous Approach (ICD-10-PCS; 2018-08-15)
PROC: B2151ZZ Fluoroscopy of Left Heart using Low Osmolar Contrast (ICD-10-PCS; 2018-08-15)
PROC: B2111ZZ Fluoroscopy of Multiple Coronary Arteries using Low Osmolar Contrast (ICD-10-PCS; 2018-08-15)
PROC: 027135Z Dilation of Coronary Artery, Two Arteries with Two Drug-eluting Intraluminal Devices, Percutaneous Approach (ICD-10-PCS; 2018-08-18)
PROC: 4A023N7 Measurement of Cardiac Sampling and Pressure, Left Heart, Percutaneous Approach (ICD-10-PCS; 2018-08-18)
PROC: B2111ZZ Fluoroscopy of Multiple Coronary Arteries using Low Osmolar Contrast (ICD-10-PCS; 2018-08-18)
DX: I21.4 Non-ST elevation (NSTEMI) myocardial infarction (principal); J96.21 Acute and chronic respiratory failure with hypoxia; J11.00 Influenza due to unidentified influenza virus with unspecified type of pneumonia; I50.21 Acute systolic (congestive) heart failure; J44.0 Chronic obstructive pulmonary disease with (acute) lower respiratory infection; J98.11 Atelectasis; R04.2 Hemoptysis; D68.32 Hemorrhagic disorder due to extrinsic circulating anticoagulants; T45.515A Adverse effect of anticoagulants, initial encounter; I25.110 Atherosclerotic heart disease of native coronary artery with unstable angina pectoris; I11.0 Hypertensive heart disease with heart failure; E78.5 Hyperlipidemia, unspecified; F17.200 Nicotine dependence, unspecified, uncomplicated; I25.5 Ischemic cardiomyopathy; E11.65 Type 2 diabetes mellitus with hyperglycemia; E11.51 Type 2 diabetes mellitus with diabetic peripheral angiopathy without gangrene; I45.10 Unspecified right bundle-branch block; D64.9 Anemia, unspecified; E78.00 Pure hypercholesterolemia, unspecified; Z79.82 Long term (current) use of aspirin; Z79.4 Long term (current) use of insulin

== ENCOUNTER 2018-10-12 16:00 | Emergency (ER) | payer MEDICARE, BC ==
[2018-10-12 16:18] VITALS: BMI 28.7
[2018-10-12 17:17] LABS: BASO # 0.01 K/mm3 (0.0-2.0); BASO % 0.1 % (0.0-3.0); EOS # 0.1 (0.0-0.7); EOS % 0.6 % (1.5-5.0); GRAN # 6.8 (1.4-6.5); GRAN % 72.5 % (50.0-68.0); HEMOGLOBIN 9.8 g/dL (14.0-18.0); LYMPH # 1.8 (1.2-3.4); LYMPH % 19.6 % (22.0-35.0); MEAN CELL VOLUME 83.4 fl (80.0-105.0); MEAN CORPUSCULAR HEMOGLOBIN 27.1 pg (25.0-35.0); MEAN CORPUSCULAR HGB CONC 32.6 g/dl (31.0-37.0); MEAN PLATELET VOLUME 9.1 fl (7.0-11.0); MONO # 0.7 (0.1-0.6); MONO % 7.2 % (1.0-6.0); RBC 3.61 10^6/uL (3.5-6.1); RED CELL DISTRIBUTION WIDTH 15.1 % (11.5-14.5); WHITE BLOOD COUNT 9.4 10^3/uL (4.5-11.0)
--- NOTE | 2018-10-12 17:25 | ED PDOC ---
Arrival/HPI - General Chief Complaint: Trauma Time Seen by Provider: 10/12/18 16:23 Historian: Patient, Family, EMS - Critical Care Critical Care Minutes: 75 minutes, 90 minutes - History of Present Illness Narrative History of Present Illness (Text): 10/12/18 16:56 87 year old M w/ h/o renal insufficiency and PNA presenting to the Emergency Room s/p fall today. The patient states he was ambulating from his PCP office when he sustained a mechanical fall backwards landing on his head. The patient states he felt a little dizzy prior to the fall, but was unsure. He denies LOC, back pain or neck pain, but reports sustaining a small abrasion to the occiput. Of note, the patient was recently discharged from rehabilitation after recent admission for a pnuemonia. Per the patient's nephew, the patient lives at group home facility by himself. PCP: Dr. Fan Time/Duration: Prior to Arrival Symptom Onset: Sudden Activities at Onset: Rest Context: Standing, Walking, Street, Pedestrian Past Medical History - Provider Review Nursing Documentation Reviewed: Yes - Travel History Have you recently traveled outside [place] w/in the past 3 mons?: No - Infectious Disease Hx of Infectious Diseases: None - Tetanus Immunization Tetanus Immunization: Unknown - Cardiac Hx Cardiac Disorders: Yes Hx Hypertension: Yes - Pulmonary Hx Respiratory Disorders: No - Neurological Hx Paralysis: No - HEENT Hx HEENT Disorder: No - Renal Hx Renal Disorder: Yes Hx Kidney Stones: Yes - Endocrine/Metabolic Hx Diabetes Mellitus Type 2: Yes - Hematological/Oncological Hx Blood Transfusions: No - Integumentary Hx Dermatological Disorder: No - Musculoskeletal/Rheumatological Hx Musculoskeletal Disorders: Yes - Gastrointestinal Hx Diarrhea: Yes (x1 week, pt just finished abx for uri) - Genitourinary/Gynecological Hx Genitourinary Disorders: No - Psychiatric Hx Psychophysiologic Disorder: No Hx Substance Use: No - Past Surgical History Past Surgical History: Non-Contributing - Surgical History Other/Comment: Something to do with his throat. Pt doesn't know exactly what the problem was. - Anesthesia Hx Anesthesia: Yes Hx Anesthesia Reactions: No Hx Malignant Hyperthermia: No - Suicidal Assessment Feels Threatened In Home Enviroment: No Family/Social History - Physician Review Nursing Documentation Reviewed: Yes Family/Social History: No Known Family HX Smoking Status: Current Some Days Smoker Hx Alcohol Use: No Hx Substance Use: No Hx Substance Use Treatment: No Allergies/Home Meds Allergies/Adverse Reactions: Allergies No Known Allergies Allergy (Verified 08/11/18 16:57) Home Medications: Home Meds Medication Instructions Recorded Confirmed Cilostazol 100 mg PO BID 11/01/12 08/13/16 Diltiazem HCl [Diltiazem 24Hr ER] 420 mg PO DAILY 08/13/16 08/13/16 Multivitamin [Men's Multi-Vitamin] 1 tab PO DAILY 08/13/16 08/13/16 Omeprazole 20 mg PO BID 08/13/16 08/13/16 Review of Systems - Physician Review All systems were reviewed & negative as marked: Yes - Review of Systems Cardiovascular: absent: Chest Pain Gastrointestinal: absent: Abdominal Pain Skin: Laceration Physical Exam Vital Signs Reviewed: Yes Vital Signs Temp Pulse Resp BP Pulse Ox 10/12/18 16:16 97.9 F 99 H 18 185/77 H 96 Temperature: Afebrile Blood Pressure: Hypertensive Pulse: Regular Respiratory Rate: Normal Appearance: Positive for: Well-Appearing, Non-Toxic, Comfortable Mental Status: Positive for: Alert and Oriented X 3 Finger Stick Blood Glucose: 278 - Systems Exam Head: Present: Atraumatic, Normocephalic Pupils: Present: PERRL Extroacular Muscles: Present: EOMI Conjunctiva: Present: Normal Mouth: Present: Moist Mucous Membranes Neck: Present: Normal Range of Motion Respiratory/Chest: Present: Clear to Auscultation, Good Air Exchange. No: Respiratory Distress Abdomen: Present: Normal Bowel Sounds. No: Tenderness, Distention, Peritoneal Signs Upper Extremity: Present: Normal Inspection. No: Cyanosis, Edema Lower Extremity: Present: Normal Inspection. No: Edema Neurological: Present: GCS=15, CN II-XII Intact, Speech Normal, Motor Func Grossly Intact, Normal Sensory Function Skin: Present: Warm, Dry, Normal Color. No: Rashes Psychiatric: Present: Alert, Oriented x 3, Normal Insight, Normal Concentration Medical Decision Making ED Course and Treatment: 10/12/18 17:46 Impression 87 year old M s/p mechanical fall Differential Diagnoses Includes But Is Not Limited To: --Intracranial Bleeding --Calavarial Skull Fracture --Vertebral Fracture Plan --Type and screen --Labetolol --CTH --CT C-spine --Labs --EKG --CXR --Neurosurgery consult --Tylenol --Jessica Collar --Reassess & disposition Progress Notes 10/12/18 18:[address] imaging shows a right frontal subdural hemorrhage as well as sub- arachnoid hemorrhage noted near the cisterns as well as right side parietal bone fracture with no evidence of midline shift. CT c-spine reveals a non-displaced odontoid fracture with a possible epidural hemorrhage. Spoke to Dr. Gonzalez(neurosurgery) who states patient may have a true aneurismal bleed originating from a sub-arachnoid hemorrhage that may warrant surgical intervention at another facility. He recommends calling [facility] for transfer. Call placed to both facilities. 10/12/18 19:02 Spoke to neurosurgery ROCCO Chappell(from [place]) who accepts patient for transfer. Communication placed to trauma surgeon through the transfer service. 10/12/18 19:15 Awaiting response from trauma surgeon. BP 182/91 after Labetolol. 10/12/18 19:[address] Yeager(trauma surgery from [place]) who accepts patient for transfer. He states patient should be transferred immediately and if possible should have platelets transfused if transport is delayed. Alerted [facility] [place]. Spoke to family regarding patient's clinical condition and need for emergent transfer in which patient's brother will attempt to arrive to [facility] prior to transfer. - Critical Care Critical Care Minutes: 75 minutes - Lab Interpretations Lab Results: 10/12/18 17:12 10/12/18 17:12 Lab Results 10/12/18 17:12: PT 12.3, INR 1.08, APTT 24.1 L 10/12/18 17:12: Sodium 136, Potassium 5.3 H, Chloride 109 H, Carbon Dioxide 18 L , Anion Gap 15, BUN 72 H, Creatinine 1.8 H, Est GFR ( Amer) 43, Est GFR (Non-Af Amer) 36, Random Glucose 288 H, Calcium 8.3 L, Total Bilirubin 0.4, AST 20, ALT 23, Alkaline Phosphatase 66, Troponin I < 0.01 D, Total Protein 6.6, Albumin 3.2, Globulin 3.3, Albumin/Globulin Ratio 1.0 L 10/12/18 17:12: WBC 9.4 D, RBC 3.61, Hgb 9.8 L, Hct 30.1 L, MCV 83.4 D, MCH 27.1, MCHC 32.6, RDW 15.1 H, Plt Count 312, MPV 9.1, Gran % 72.5 H, Lymph % (Auto) 19.6 L, [place] % (Auto) 7.2 H, Eos % (Auto) 0.6 L, Baso % (Auto) 0.1, Gran # 6.80 H, Lymph # (Auto) 1.8, [place] # (Auto) 0.7 H, Eos # (Auto) 0.1, Baso # (Auto) 0.01 I have reviewed the lab results: Yes - RAD Interpretation Radiology Orders: 10/12/18 16:37 CERVICAL SPINE W/O CONTRAST [CT] Stat HEAD W/O CONTRAST [CT] Stat 10/12/18 16:43 CHEST PORTABLE [RAD] Stat Disposition/Present on Arrival - Present on Arrival Any Indicators Present on Arrival: No History of DVT/PE: No History of Uncontrolled Diabetes: No Urinary Catheter: No History of Decub. Ulcer: No History Surgical Site Infection Following: None - Disposition Have Diagnosis and Disposition been Completed?: Yes Diagnosis: Subdural hematoma, Subarachnoid bleed, Odontoid fracture, Fracture of parietal bone, Fracture of occiput Disposition: Transfer [facility] Disposition Time: 18:07 Patient Plan: Transfer To Patient Problems: Current Active Problems Problem Status Onset Fracture of occiput Acute Fracture of parietal bone Acute Odontoid fracture Acute Subarachnoid bleed Acute Subdural hematoma Acute Forms: [employer] (Algerian)
[2018-10-12 17:26] LABS: ALBUMIN 3.2 g/dL (3.0-4.8); ALT/SGPT 23 U/L (7-56); AST/SGOT 20 U/L (17-59); BLOOD UREA NITROGEN 72 mg/dL (7-21); CALCIUM 8.3 mg/dL (8.4-10.5); GFR NON-AFRICAN AMERICAN 36; INR 1.08; PARTIAL THROMBOPLASTIN TIME 24.1 Seconds (25.1-36.5); PROTHROMBIN TIME 12.3 SECONDS (9.4-12.5)
[2018-10-12 17:37] LABS: TROPONIN I < 0.01 ng/mL
[2018-10-12] MEDS ORDERED: Sodium Chloride 0.9% 1,000 ML IV STA ×2 (18:04→19:10)
--- NOTE | 2018-10-12 18:12 | CT ---
Date of service: 10/12/2018 PROCEDURE: CT HEAD WITHOUT CONTRAST. HISTORY: fall COMPARISON: 11/01/2012. TECHNIQUE: Axial computed tomography images were obtained through the head/brain without intravenous contrast. Radiation dose: Total exam DLP = 840.32 mGy-cm. This CT exam was performed using one or more of the following dose reduction techniques: Automated exposure control, adjustment of the mA and/or kV according to patient size, and/or use of iterative reconstruction technique. FINDINGS: HEMORRHAGE: There is an acute right frontal convexity subdural hemorrhage measuring 8 mm in maximum width in the inferior frontal subdural space. There is large amount of acute subarachnoid hemorrhage in the right sylvian fissure, parietal lobe sulci, suprasellar cistern and right cistern. No evidence of intraventricular extension of hemorrhage. BRAIN: There is no mass effect, midline shift or herniation. There are moderate chronic microangiopathic changes. There are tiny foci of air in the right parietal and occipital extra axial space likely related to the right-sided fracture. There is also small foci of air in the left posterior parietal extra-axial space. VENTRICLES: There is moderate age-related global parenchymal volume loss and proportionate enlargement of the ventricles and cortical sulci. CALVARIUM: There is an acute nondisplaced right parieto-occipital fracture. There is moderate sized right parietal and posterior parietal scalp hematoma and small foci of extracranial air in the parieto-occipital soft tissues. PARANASAL SINUSES: Predominantly clear. MASTOID AIR CELLS: There is small effusion in the right mastoid tip and soft tissue in the right mastoid air cells. There is a tiny foci of air lateral to the right sigmoid sinus. The left mastoid air cells are clear. There is cerumen in the left external auditory canal. OTHER FINDINGS: None. IMPRESSION: 1. Acute right frontal can laxity subdural hemorrhage measuring 8 mm in maximum width without mass effect or midline shift. 2. Larger numbed of acute subarachnoid hemorrhage in the right parietal lobe sulci, sylvian fissure, suprasellar cistern and right in the insistent. 3. Acute nondisplaced right parietal and occipital bone fracture with associated small foci of extra-axial and extracranial air. 4. Small effusion in the right mastoid tip and small foci of air lateral to the right sigmoid sinus. The mastoid bone fracture cannot be entirely excluded on this CT scan of the head. Dedicated CT scan of the temporal bone and mastoids would be helpful for further evaluation. Critical findings were discussed with Dr. Schuyler Hart in the ER on 10/12/2018 at 6 p.m.
--- NOTE | 2018-10-12 18:13 | RAD ---
Date of service: 10/12/2018 HISTORY: sob COMPARISON: 08/13/2018. FINDINGS: LUNGS: There are low lung volumes. There is linear atelectasis in the left lower lobe. PLEURA: No pleural effusions or pneumothorax. CARDIOVASCULAR: The heart is normal in size. No aortic atherosclerotic calcification present. OSSEOUS STRUCTURES: Within normal limits for the patient's age. VISUALIZED UPPER ABDOMEN: Normal. OTHER FINDINGS: None. IMPRESSION: No acute findings.
--- NOTE | 2018-10-12 18:38 | CT ---
Date of service: 10/12/2018 PROCEDURE: CT Cervical Spine without contrast HISTORY: fall COMPARISON: None available. TECHNIQUE: Axial computed tomography images were obtained of the cervical spine without the use of intravenous contrast. Coronal and sagittal reformatted images were created and reviewed. Radiation dose: Total exam DLP = 530.78 mGy-cm. This CT exam was performed using one or more of the following dose reduction techniques: Automated exposure control, adjustment of the mA and/or kV according to patient size, and/or use of iterative reconstruction technique. FINDINGS: VERTEBRAE: There is normal alignment of the cervical vertebral bodies. There is straightening of the cervical spine with loss of normal cervical lordosis. There is an acute nondisplaced fracture at the base of the odontoid process. The atlantoaxial joint is normal. There are extensive lucent areas and erosion in the posterior cortex of the odontoid process. There is reduced atlantoaxial joint space. DISCS/SPINAL CANAL/NEURAL FORAMINA: There is multilevel degenerative disc disease due to combination of disc osteophyte complexes, or uncovertebral joint hypertrophy and multilevel facet arthropathy with variable degree of neural foraminal narrowing without central spinal canal stenosis. PARASPINAL SOFT TISSUES: The paraspinous soft tissues are normal. OTHER FINDINGS: There is mild prevertebral soft tissue thickening and increased attenuation in the prevertebral soft tissues anterior to the odontoid process. There is also heterogeneous high attenuation in the dorsal epidural space posterior to the odontoid process. IMPRESSION: 1. Acute nondisplaced fracture at the base of the odontoid process. Prevertebral soft tissue and suspect mild prevertebral hemorrhage. 2. Heterogeneous high attenuation in the dorsal epidural space posterior to the odontoid process could represent epidural hematoma. 3. Evaluation of the cord is limited on noncontrast CT examination. An MRI of the cervical spine without intravenous contrast is recommended for further evaluation. 4. 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 No evidence for atlantoaxial subluxation or dislocation. Critical findings were discussed with Dr. Schuyler Hart in the ER on 10/12/2018 at 6:25 p.m.
[2018-10-12] MEDS ORDERED: Labetalol 5mg/ml (4ml) IV STA (18:48)
--- NOTE | 2018-10-12 19:06 | CARD ---
APPROVED REPORT Date of service: 10/12/2018 EKG Measurement Heart [id number] <Conclusion> Normal sinus rhythm Right bundle branch block Abnormal ECG
[2018-10-12 20:10] VITALS: O2SAT 95
[2018-10-12 21:02] VITALS: BP 179/97; PULSE 99; RESP 18; TEMP 98.7
== END 2018-10-12 20:25 | disposition short-term general hospital (02) ==
LOC: ED 16:00
DX: S06.6X0A Traumatic subarachnoid hemorrhage without loss of consciousness, initial encounter (principal); S06.5X0A Traumatic subdural hemorrhage without loss of consciousness, initial encounter; S12.110A Anterior displaced Type II dens fracture, initial encounter for closed fracture; S02.0XXA Fracture of vault of skull, initial encounter for closed fracture; S02.119A Unspecified fracture of occiput, initial encounter for closed fracture; W01.0XXA Fall on same level from slipping, tripping and stumbling without subsequent striking against object, initial encounter; Y92.89 Other specified places as the place of occurrence of the external cause; I10 Essential (primary) hypertension; E11.9 Type 2 diabetes mellitus without complications; F17.210 Nicotine dependence, cigarettes, uncomplicated
CPT/HCPCS: 70450; 71045; 72125; 80053; 84484; 85025; 85610; 85730; 86850; 86900; 93005; 99285; J7030